=== PATIENT | male | born 1940 | race Caucasian/White ===

== ENCOUNTER 2016-12-19 20:25 | Emergency (ER) | payer MEDICARE, OTHER ==
[2016-12-19 20:41] VITALS: BP 120/74
[2016-12-19] MEDS ORDERED: Potassium Chloride 20 MEQ Tab.ER PO ONE (22:23)
--- NOTE | 2016-12-19 22:23 | EDM.PDOC ---
ED HPI GENERAL MEDICAL PROBLEM - General Chief Complaint: Respiratory Problem Stated Complaint: LUNG PAIN SOB Time Seen by Provider: 12/19/16 20:53 Source of Information: Reports: Patient, RN Notes Reviewed History Limitations: Reports: No Limitations - History of Present Illness INITIAL COMMENTS - FREE TEXT/NARRATIVE: The patient states that he has had a dry cough for the past 2 nights. His symptoms are worse if he is supine. No wheezing. He states that he has had a hoarse voice, and his says that he has bags under his eyes. He reports generalized weakness. No recent fever. No recent nausea, vomiting, constipation, diarrhea, urinary symptoms, chest pain , or palpitations. No recent lower extremity edema. Prior similar symptoms. The patient's PCP is Nay Lyles, whom he has not seen for this problem. Anterior Chest Pain Score (Numeric/FACES): 2 - Related Data Allergies Allergy/AdvReac Type Severity Reaction Status Date / Time atorvastatin calcium Allergy Unknown Cough Verified 12/19/16 20:42 [From Lipitor] acetaminophen Allergy Cannot Verified 12/19/16 20:42 [From Lorcet 10/650] Remember adhesive Allergy Rash Verified 12/19/16 20:42 hydrocodone bitartrate Allergy Cannot Verified 12/19/16 20:42 [From Lorcet 10/650] Remember lisinopril Allergy Cannot Verified 12/19/16 20:42 Remember simvastatin [From Zocor] Allergy Cannot Verified 12/19/16 20:42 Remember Home Meds: Home Meds Ipratropium [Atrovent] 0.5 mg NEB Q4HRRT #30 neb 12/20/16 [Rx] Past Medical History HEENT History: Reports: Impaired Vision Cardiovascular History: Reports: CAD, High Cholesterol, Hypertension Respiratory History: Reports: COPD, Sleep Apnea (nightly CPAP) Gastrointestinal History: Reports: GERD Genitourinary History: Reports: BPH Musculoskeletal History: Reports: Other (See Below) (Spinal stenosis) Endocrine/Metabolic History: Reports: Diabetes, Type II Oncologic (Cancer) History: Reports: Bladder - Past Surgical History HEENT Surgical History: Reports: Cataract Surgery, Tonsillectomy Cardiovascular Surgical History: Reports: Coronary Artery Bypass (x 5 vessel, 2008) Other Male Surgeries/Procedures: BPH Neurological Surgical History: Reports: Lumbar Spine (Lumbar discectomy. Lumbar laminectomy.) Musculoskeletal Surgical History: Reports: Knee Replacement (right) Social & Family History - Family History Family Medical History: Noncontributory - Tobacco Use Smoking Status *Q: Former Smoker Years of Tobacco use: 45 Packs/Tins Daily: 1.5 Month Tobacco Last Used: Quit 1996 - Caffeine Use Caffeine Use: Reports: Coffee - Alcohol Use Alcohol Use History: Yes Days Per Week of Alcohol Use: 1 Number of Drinks Per Day: 1 Total Drinks Per Week: 1 Alcohol Use Frequency: Socially - Recreational Drug Use Recreational Drug Use: No - Living Situation & Occupation Living situation: Reports: , with Spouse Occupation: Retired ED ROS GENERAL - Review of Systems Review Of Systems: See Below Constitutional: Reports: No Symptoms HEENT: Reports: No Symptoms Respiratory: Reports: No Symptoms Cardiovascular: Reports: No Symptoms Endocrine: Reports: No Symptoms GI/Abdominal: Reports: No Symptoms : Reports: No Symptoms Musculoskeletal: Reports: No Symptoms Skin: Reports: No Symptoms Neurological: Reports: No Symptoms Psychiatric: Reports: No Symptoms Hematologic/Lymphatic: Reports: No Symptoms Immunologic: Reports: No Symptoms ED EXAM, GENERAL - Physical Exam Exam: See Below Exam Limited By: No Limitations General Appearance: Alert, WD/WN, No Apparent Distress Eye Exam: Bilateral Eye: EOMI, Normal Inspection Ears: Normal External Exam, Normal Canal, Hearing Grossly Normal, Normal TMs Nose: Normal Inspection, Normal Mucosa, No Blood Throat/Mouth: Normal Inspection, Normal Lips, Normal Teeth, Normal Gums, Normal Oropharynx, Normal Voice, No Airway Compromise Head: Atraumatic, Normocephalic Neck: Normal Inspection, Supple, Non-Tender, Full Range of Motion. No: Lymphadenopathy (L), Lymphadenopathy (R) Respiratory/Chest: No Respiratory Distress, Lungs Clear, Normal Breath Sounds, No Accessory Muscle Use Cardiovascular: Normal Peripheral Pulses, Regular Rate, Rhythm, No Gallop, No JVD, No Murmur, No Rub Peripheral Pulses: 4+: Radial (L), Radial (R) GI/Abdominal: Normal Bowel Sounds, Soft, Non-Tender, No Organomegaly, No Distention, No Abnormal Bruit, No Mass (Male) Exam: Deferred Rectal (Males) Exam: Deferred Back Exam: Normal Inspection, Full Range of Motion, NT Extremities: Normal Inspection, Normal Range of Motion, No Pedal Edema, Normal Capillary Refill Neurological: Alert, Oriented, Normal Cognition, No Motor/Sensory Deficits Psychiatric: Normal Affect Skin Exam: Warm, Dry, Intact, Normal Color, No Rash Lymphatic: No Adenopathy EKG INTERPRETATION EKG Date: 12/19/16 Time: 21:22 Rhythm: NSR Rate (Beats/Min): 81 [place]: Normal P-Wave: Present (1st degree AVB) QRS: Normal ST-T: Normal QT: Normal Comparison: NA - No Prior EKG Course - Vital Signs Last Recorded V/S: Last Vital Signs Temp 37.2 C 12/19/16 20:32 Pulse 78 12/20/16 01:48 Resp 18 12/20/16 01:48 BP 120/74 12/19/16 20:32 Pulse Ox 100 12/20/16 01:48 - Orders/Labs/Meds Orders: Active Orders 24 hr Category Date Time Status EKG Documentation Completion [RC] STAT Care 12/19/16 21:11 Active Ang Chest [CT] Stat Exams 12/19/16 22:21 Taken Chest 2V [CR] Stat Exams 12/19/16 21:11 Taken Labs: Laboratory Tests 12/19/16 12/19/16 12/19/16 Range/Units 21:26 21:26 21:26 WBC 5.08 (4.23-9.07) K/mm3 RBC 4.69 (4.63-6.08) M/mm3 Hgb 15.0 (13.7-17.5) gm/L Hct 42.4 (40.1-51.0) % MCV 90.4 (79.0-92.2) fl MCH 32.0 (25.7-32.2) pg MCHC 35.4 (32.2-35.5) g/dl RDW Std Deviation 43.9 (35.1-43.9) fL Plt Count 147 L (163-337) K/mm3 MPV 10.2 (9.4-12.3) fl Neutrophils % (Manual) 48 (40-60) % Band Neutrophils % 0 (0-10) % Lymphocytes % (Manual) 37 (20-40) % Atypical Lymphs % 0 % Monocytes % (Manual) 10 (2-10) % Eosinophils % (Manual) 4 (0.8-7.0) % Basophils % (Manual) 1 (0.2-1.2) Platelet Estimate Adequate RBC Morph Comment Not Reportable PT 10.6 (8.0-13.0) SECONDS INR 0.97 APTT 28 (22-36) SECONDS D-Dimer, Quantitative 0.76 H (0.19-0.59) mg/L Puncture Site ABG pH (7.35-7.45) ABG pCO2 (35.0-45.0) mmHg ABG pO2 (80.0-100.0) mmHg ABG HCO3 (22.0-26.0) meq/L ABG O2 Saturation (96.0-97.0) % ABG Base Excess (-2-2.0) A-a Gradient mmHg FiO2 (21.00-100.00) % Sodium 137 (136-145) mEq/L Potassium 3.1 L (3.5-5.1) mEq/L Chloride 99 (98-107) mEq/L Carbon Dioxide 27 (21-32) mEq/L Anion Gap 14.1 (5-15) BUN 18 (7-18) mg/dL Creatinine 1.1 (0.7-1.3) mg/dL Est Cr Clr Drug Dosing 52.58 mL/min Estimated GFR (MDRD) > 60 (>60) mL/min BUN/Creatinine Ratio 16.4 (14-18) Glucose 228 H (83-115) mg/dL Lactic Acid (0.4-2.0) mmol/L Calcium 8.6 (8.5-10.1) mg/dL Total Bilirubin 0.4 (0.2-1.0) mg/dL AST 31 (15-37) U/L ALT 50 (16-63) U/L Alkaline Phosphatase 71 (46-116) U/L Troponin I < 0.017 (0.00-0.056) ng/mL B-Natriuretic Peptide (0-100) pg/mL Total Protein 7.6 (6.4-8.2) g/dl Albumin 3.3 L (3.4-5.0) g/dl Globulin 4.3 gm/dL Albumin/Globulin Ratio 0.8 L (1-2) 12/19/16 12/19/16 12/19/16 Range/Units 21:26 21:26 21:30 WBC (4.23-9.07) K/mm3 RBC (4.63-6.08) M/mm3 Hgb (13.7-17.5) gm/L Hct (40.1-51.0) % MCV (79.0-92.2) fl MCH (25.7-32.2) pg MCHC (32.2-35.5) g/dl RDW Std Deviation (35.1-43.9) fL Plt Count (163-337) K/mm3 MPV (9.4-12.3) fl Neutrophils % (Manual) (40-60) % Band Neutrophils % (0-10) % Lymphocytes % (Manual) (20-40) % Atypical Lymphs % % Monocytes % (Manual) (2-10) % Eosinophils % (Manual) (0.8-7.0) % Basophils % (Manual) (0.2-1.2) Platelet Estimate RBC Morph Comment PT (8.0-13.0) SECONDS INR APTT (22-36) SECONDS D-Dimer, Quantitative (0.19-0.59) mg/L Puncture Site Rt radial ABG pH 7.46 H (7.35-7.45) ABG pCO2 36.7 (35.0-45.0) mmHg ABG pO2 57.0 L (80.0-100.0) mmHg ABG HCO3 25.8 (22.0-26.0) meq/L ABG O2 Saturation 89.1 L (96.0-97.0) % ABG Base Excess 2.6 H (-2-2.0) A-a Gradient 31 mmHg FiO2 21.00 (21.00-100.00) % Sodium (136-145) mEq/L Potassium (3.5-5.1) mEq/L Chloride (98-107) mEq/L Carbon Dioxide (21-32) mEq/L Anion Gap (5-15) BUN (7-18) mg/dL Creatinine (0.7-1.3) mg/dL Est Cr Clr Drug Dosing mL/min Estimated GFR (MDRD) (>60) mL/min BUN/Creatinine Ratio (14-18) Glucose (83-115) mg/dL Lactic Acid 1.6 (0.4-2.0) mmol/L Calcium (8.5-10.1) mg/dL Total Bilirubin (0.2-1.0) mg/dL AST (15-37) U/L ALT (16-63) U/L Alkaline Phosphatase (46-116) U/L Troponin I (0.00-0.056) ng/mL B-Natriuretic Peptide 60 (0-100) pg/mL Total Protein (6.4-8.2) g/dl Albumin (3.4-5.0) g/dl Globulin gm/dL Albumin/Globulin Ratio (1-2) Meds: Medications Discontinued Medications Generic Name Dose Route Start Last Admin Trade Name Freq PRN Reason Stop Dose Admin Sodium Chloride 1,000 mls @ 150 mls/hr 12/19/16 22:30 12/19/16 22:42 Normal Saline IV 150 mls/hr ASDIRECTED TANIA Administration Iopamidol 100 ml 12/19/16 23:06 12/19/16 23:27 Isovue-370 (76%) IVPUSH 12/19/16 23:07 100 ml ONETIME ONE Administration Potassium Chloride 40 meq 12/19/16 22:23 12/19/16 22:32 Klor-Con M20 PO 12/19/16 22:24 40 meq ONETIME ONE Administration Sodium Chloride 10 ml 12/19/16 23:06 12/19/16 23:27 Saline Flush FLUSH 10 ml ONETIME PRN Administration Keep Vein Open - Radiology Interpretation Free Text/Narrative:: Two-view chest radiograph appears to be unremarkable. Cardiac silhouette is within normal limits. No pulmonary vascular congestion. No pleural effusions. No focal infiltrate. No pneumothorax. Sternotomy wires, cardiac clips, and valve repair ring noted. Formal read per the Radiologist pending. CT angiogram of the chest is read by [facility] as: No sign of acute pulmonary thromboembolic disease. There are presumed to be postoperative changes related to cardiac bypass. Signs of bronchitis/bronchiolitis left lower lobe. - Re-Assessments/Exams Free Text/Narrative Re-Assessment/Exam: 12/19/16 22:22 The patient's D-dimer is elevated at 0.76. While I believe the likelihood of PE to be low, I have ordered a CT and REM of the chest to rule out out. Additionally, the patient's potassium returned depressed at 3.1. I have ordered 40 mEq potassium chloride orally. 12/20/16 00:50 Test results discussed with the patient. Yaya's workup is remarkable for potassium depressed at 3.1, which was treated with 40 mEq oral potassium, and an elevated blood glucose of 228, although the patient is diabetic. The patient's d-dimer was modestly elevated at 0.76, however, a CT angiogram is negative for PE. The CT angiogram showed what is clinically suspected: bronchitis. Current guidelines recommend the only treatment for acute bronchitis is Atrovent and ibuprofen. Departure - Departure Time of Disposition: 00:51 Disposition: Home, Self-Care 01 Condition: Good Clinical Impression: Acute bronchitis - Discharge Information Prescriptions: Ipratropium [Atrovent] 0.5 mg NEB Q4HRRT #30 neb Instructions: Acute Bronchitis, [id number] Referrals: Shelbie Lyles MD [Primary Care Provider] - Forms: ED Department Discharge Additional Instructions: You were seen in the emergency room for 2 days of a cough. Workup in the ER included blood work, an ECG, and a chest x-ray. Your workup found that your potassium was low at 3.1. You were given oral potassium in the ER. Your blood sugar was found to be elevated at 228. A blood test suggested the possibility of a blood clot in your lungs, however, you underwent a CAT scan of your chest which showed that you do not have a blood clot in your lungs. It did show, however, that you have bronchitis. Bronchitis is a viral infection of the tubes that lead into your lung tissue. Unfortunately, there is no treatment to get rid of the virus - it will have to run its course, which is typically about 3 weeks. The only medicines that have been shown to help with the symptoms of acute bronchitis are Atrovent and ibuprofen. Give yourself 1 Atrovent neb up to every 4 hours, as needed for cough. Take [id number] ibuprofen 2-3 tablets (400-600 mg) every 8 hours, with food, as needed for cough. If any other problems, please do not hesitate to return to the ER. - My Orders Last 24 Hours: My Active Orders 12/19/16 21:11 EKG Documentation Completion [RC] STAT Chest 2V [CR] Stat 12/19/16 22:21 Ang Chest [CT] Stat - Assessment/Plan Last 24 Hours: My Active Orders 12/19/16 21:11 EKG Documentation Completion [RC] STAT Chest 2V [CR] Stat 12/19/16 22:21 Ang Chest [CT] Stat
[2016-12-19] MEDS ORDERED: Sodium Chloride 0.9% 1,000 ML IV SCH (22:30)
[2016-12-19] MEDS ORDERED: Iopamidol 755 Mg/ML 100 ML Bottle IVPUSH ONE (23:06)
[2016-12-19] MEDS ORDERED: Sodium Chloride 0.9% 10 ML Syringe FLUSH PRN (23:06)
--- NOTE | 2016-12-20 10:11 | CR ---
Chest: Two views of the chest are obtained. Comparison: Previous chest x-ray of 02/02/11. Heart size appears normal. Tortuous thoracic aorta is seen. Lungs are clear with no acute infiltrates. Previous sternotomy is noted for CABG. Bony structures show scattered disc space narrowing within the thoracic spine. Mild compression deformities are scattered within the spine which appear old. Prior prosthetic heart valve is seen. Impression: 1. Nothing acute is seen. Incidental findings as described above. Diagnostic code #2
--- NOTE | 2016-12-20 10:11 | CT ---
CT chest Technique: Multiple axial sections through the chest were obtained. Intravenous contrast was utilized. Study has been performed as a pulmonary angiogram protocol. Comparison: Previous chest CT of 01/02/10. Findings: Pulmonary arteries are well-opacified. No filling defects are seen to indicate pulmonary embolism. Atherosclerotic calcification is noted within the thoracic aorta. Diffuse coronary artery calcification is seen with prior CABG. Small normal-appearing mediastinal lymph nodes are seen. No axillary adenopathy is seen. Visualized portions of the upper abdominal structures appear within normal limits for age. Slight nodularity is seen in a subpleural location within the left lung base most likely chronic. Emphysematous changes are seen. Mild interstitial change within both lung bases most likely representing slight fibrosis. Impression: 1. No findings of pulmonary embolism. 2. Emphysematous change. Other incidental findings. Diagnostic code #2 I agree with preliminary report issued by [facility] ([facility] preliminary report dictated on 12/20/16, 12:44 AM Central Time)
== END 2016-12-20 01:10 | disposition home or self-care (01) ==
LOC: JD.ED 20:25
DX: J20.9 Acute bronchitis, unspecified (principal); I25.10 Atherosclerotic heart disease of native coronary artery without angina pectoris; E78.00 Pure hypercholesterolemia, unspecified; I10 Essential (primary) hypertension; E11.9 Type 2 diabetes mellitus without complications; K21.9 Gastro-esophageal reflux disease without esophagitis; Z98.49 Cataract extraction status, unspecified eye; Z88.6 Allergy status to analgesic agent; Z88.5 Allergy status to narcotic agent; Z98.890 Other specified postprocedural states; Z95.1 Presence of aortocoronary bypass graft; Z96.659 Presence of unspecified artificial knee joint; Z87.891 Personal history of nicotine dependence
CPT/HCPCS: 36415; 36600; 71020; 71275; 80053; 82803; 83605; 83880; 84484; 85025; 85379; 85610; 85730; 93005; 96360; 96361; 99284; A9270; J7040; J7050; Q9967

== ENCOUNTER 2018-12-03 12:32 | Emergency (ER) | payer MEDICARE, OTHER ==
[2018-12-03 12:47] VITALS: BP 108/73
[2018-12-03] MEDS ORDERED: Lidocaine 2% Jelly 10 ML Urojet MUCMEM ONE (13:36)
--- NOTE | 2018-12-03 13:37 | EDM.PDOC ---
ED HPI GENERAL MEDICAL PROBLEM - General Chief Complaint: Gastrointestinal Problem Stated Complaint: RECTOM SWOLLEN SHUT Time Seen by Provider: 12/03/18 13:36 Source of Information: Reports: Patient History Limitations: Reports: No Limitations - History of Present Illness INITIAL COMMENTS - FREE TEXT/NARRATIVE: 78-year-old male presents to the ED with severe constipation. He states his rectum is swollen and he cannot have a bowel movement. States he has used Fleet enemas and oral laxatives over the last several days with no results. Normally his bowels work up to 6 times daily and he appears to be somewhat obsessed with his bowel function. He states occasionally he will note some blood with wiping of the perianal area. States his last good bowel movement was about a week ago. Small amounts of stool have been obtained with Fleet enemas. He has some mild diffuse lower quadrant abdominal cramping pain but he is able to eat normally up until today. Denies any vomiting. Feels constant pressure in the rectal vault like he needs to defecate but is unable to do so. Onset: Gradual Onset Date: 11/26/18 Duration: Day(s):, Constant, Getting Worse Location: Reports: Abdomen (Rectal pressure and inability to have a bowel movement.), Other Quality: Reports: Ache ( He is lower abdominal cramping pain intermittently), Pressure Severity: Moderate Improves with: Reports: None (Rectum) Worsens with: Reports: None Context: Reports: Other (Suffering from constipation and unable to have a bowel movement. States he's too weak to push out the hard stool.). Denies: Activity, Exercise, Lifting, Sick Contact, Trauma Associated Symptoms: Reports: Loss of Appetite, Malaise, Shortness of Breath ( On exertion). Denies: No Other Symptoms, Confusion, Chest Pain, Cough, cough w sputum, Diaphoresis, Fever/Chills, Headaches, Nausea/Vomiting, Rash, Seizure Treatments CUSTOMER EXPERT: Reports: Other (see below) Other Treatments CUSTOMER EXPERT: fleets enema Rectal Pain Score (Numeric/FACES): 1 - Related Data Allergies Allergy/AdvReac Type Severity Reaction Status Date / Time atorvastatin calcium Allergy Unknown Cough Verified 12/19/16 20:42 [From Lipitor] acetaminophen Allergy Cannot Verified 12/19/16 20:42 [From Lorcet ] Remember adhesive Allergy Rash Verified 12/19/16 20:42 hydrocodone bitartrate Allergy Cannot Verified 12/19/16 20:42 [From Lorcet 10] Remember lisinopril Allergy Cannot Verified 12/19/16 20:42 Remember simvastatin [From Zocor] Allergy Cannot Verified 12/19/16 20:42 Remember Home Meds: Home Meds Ipratropium [Atrovent] 0.5 mg NEB Q4HRRT #30 neb 12/20/16 [Rx] Past Medical History HEENT History: Reports: Impaired Vision Cardiovascular History: Reports: CAD, High Cholesterol, Hypertension Other Cardiovascular History: 5 vessel bypass 2007 Respiratory History: Reports: COPD, Sleep Apnea (nightly CPAP) Other Respiratory History: sleep apnea wears cpap at hs Gastrointestinal History: Reports: GERD Genitourinary History: Reports: BPH Musculoskeletal History: Reports: Other (See Below) (Spinal stenosis) Neurological History: Reports: CVA Psychiatric History: Reports: None Endocrine/Metabolic History: Reports: Diabetes, Type II Hematologic History: Reports: Blood Transfusion(s) Oncologic (Cancer) History: Reports: Bladder Other Oncologic History: bladder cancer Dermatologic History: Reports: None - Infectious Disease History Infectious Disease History: Reports: None - Past Surgical History HEENT Surgical History: Reports: Cataract Surgery, Tonsillectomy Cardiovascular Surgical History: Reports: Coronary Artery Bypass (x 5 vessel, 2007) Other Male Surgeries/Procedures: BPH Neurological Surgical History: Reports: Lumbar Spine (Lumbar discectomy. Lumbar laminectomy.) Musculoskeletal Surgical History: Reports: Knee Replacement (right) Social & Family History - Family History Family Medical History: Noncontributory - Caffeine Use Caffeine Use: Reports: Coffee - Living Situation & Occupation Living situation: Reports: , with Spouse Occupation: Retired ED ROS GENERAL - Review of Systems Review Of Systems: See Below Constitutional: Reports: Malaise, Weakness, Fatigue, Decreased Appetite. Denies : Fever, Chills HEENT: Reports: Glasses, Hearing Loss Respiratory: Reports: Shortness of Breath. Denies: Wheezing, Pleuritic Chest Pain, Cough, Sputum Cardiovascular: Reports: Chest Pain, Blood Pressure Problem, Dyspnea on Exertion (History of unstable angina on exertion chronically). Denies: Claudication (Often runs too low due to medications he is on.), Lightheadedness , Orthopnea Endocrine: Reports: Fatigue GI/Abdominal: Reports: Abdominal Pain (Intermittent lower abdominal pressure and cramping.), Other : Reports: Frequency (Rectal pressure discomfort and strong feeling of need to defecate but unable to do so.), Other (Nocturia 3. Known BPH.) Musculoskeletal: Reports: Neck Pain, Back Pain (Knees hips low back and neck.), Joint Pain Skin: Reports: No Symptoms Neurological: Reports: No Symptoms Psychiatric: Reports: No Symptoms ED EXAM, GI/ABD - Physical Exam Exam: See Below Exam Limited By: No Limitations General Appearance: Alert, WD/WN, Anxious, Moderate Distress, Other (Vital signs show him to be afebrile. Pulse 64 and sinus respiratory rate of 18 sats 95 % on room air. BP 108 on 73.) Eyes: Bilateral: Normal Appearance (No scleral icterus) Throat/Mouth: Normal Inspection, Normal Lips, Normal Oropharynx Head: Atraumatic, Normocephalic Neck: Limited Range of Motion, Tender Lateral Respiratory/Chest: No Respiratory Distress, Normal Breath Sounds, Decreased Breath Sounds. No: Respiratory Distress, Rales, Rhonchi (Decreased breath sounds to both lower lung myers but no adventitial sounds noted.), Wheezing Cardiovascular: Regular Rate, Rhythm, No Edema, No Gallop, No Murmur, No Rub. No: Normal Peripheral Pulses GI/Abdominal Exam: Soft, Non-Tender (Follow sounds are slightly hyperactive in all 4 quadrants.), No Organomegaly, No Abnormal Bruit, No Mass, Pelvis Stable, Abnormal Bowel Sounds. No: Guarding, Rigid, Rebound (Male) Exam: No Hernia Rectal (Males) Exam: Other (The rectum shows no active bleeding. He has evidence of a few external hemorrhoidal tags. There is no anal fissure. There is firm stool in the rectal vault. No blood noted) Back Exam: Other Extremities: Normal Inspection (Mild kyphosis thoracic spine), Other (Evidence of posterior 30 changes both days both hips with loss of internal/external rotation bilaterally.) Neurological: Alert, Oriented, CN II-XII Intact, Normal Cognition Psychiatric: Normal Affect, Anxious Skin Exam: Warm, Dry, Intact, Normal Color, No Rash Course - Vital Signs Last Recorded V/S: Last Vital Signs Temp 36.9 C 12/03/18 12:41 Pulse 64 12/03/18 12:41 Resp 18 12/03/18 12:41 BP 108/73 12/03/18 12:41 Pulse Ox 95 12/03/18 12:41 - Orders/Labs/Meds Orders: Active Orders 24 hr Category Date Time Status Enema [RC] ASDIRECTED Care 12/03/18 14:01 Active Meds: Medications Discontinued Medications Generic Name Dose Route Start Last Admin Trade Name Sinan PRN Reason Stop Dose Admin Lactulose 20 gm 12/03/18 15:49 12/03/18 16:02 Cephulac PO 12/03/18 15:50 20 gm ONETIME ONE Administration Lidocaine HCl 10 ml 12/03/18 13:36 12/03/18 13:47 Xylocaine 2% Jelly MUCMEM 12/03/18 13:37 10 ml ONETIME ONE Administration Magnesium Citrate 240 ml 12/03/18 15:48 12/03/18 16:02 Citrate Of Magnesia PO 12/03/18 15:49 240 ml ONETIME ONE Administration Magnesium Citrate Confirm 12/03/18 18:07 Citrate Of Magnesia Administered 12/03/18 18:08 Dose 296 ml .ROUTE .[facility] ONE - Radiology Interpretation Free Text/Narrative:: 78-year-old male attends the ED with rectal pressure discomfort for the last several days. He states she's not had a normal bowel movement for about a week in spite of taking numerous oral laxatives and 2 Fleet enemas yesterday. He states he feels like his rectum is closed shut. I found no abnormalities on examination of the rectum and a benign abdomen on exam. Vital signs are normal as well. Plan KUB will be done and then will decide on a treatment plan depending on the degree of constipation - Re-Assessments/Exams Free Text/Narrative Re-Assessment/Exam: 12/03/18 14:00: KUB reveals some stool in the cecum. The remainder of the descending colon and splenic flexure and transverse colon are fairly empty. There is a mild amount of stool in the descending colon and there is stool in the rectal vault. There are no signs of bowel obstruction. There is significant scoliosis and degenerative changes throughout the lower thoracic and lumbar spine. Diffuse vascular calcification is also noted in the distribution of the internal iliac and aorta. There is calcification overlying the right kidney most likely due to a nonobstructing renal stone. He has had prior.. Prior sternotomy noted for prosthetic heart valve. Therefore not a great deal of stool is identified. Plan we will try a soapsuds enema to see if we can get the plug in the rectal vault softened. 12/03/18 14:45: Nurse has tried twice to administer a soapsuds enema but the patient cannot retain any of the fluid. She states the soapsuds enema returns almost immediately. Therefore we will give him lactulose 20 g by mouth with 8 ounces of magnesium citrate. 12/03/18 18:00 patient reports that he still has not had any bowel movement with the above medication. They wish to get back [place] before dark. At this time I'm not going to administer anything further orally. I will send him home with a bottle of Citroma today 10 ounces tomorrow morning if he does not have bowel movement tonight overnight. Also with lactulose 20 g by mouth again tomorrow. If no bowel movements occur bypass 1600 hrs. she is to return to the ED. Departure - Departure Time of Disposition: 18:05 Disposition: Home, Self-Care 01 Condition: Fair Clinical Impression: Constipation by delayed colonic transit, Pain in rectum - Discharge Information Instructions: Constipation, Adult, [id number] Referrals: PCP,Unobtain [Primary Care Provider] - Forms: ED Department Discharge Additional Instructions: Evaluation the emergent today in regards to severe, problems with constipation and rectal pressure discomfort from stool bolus in the rectal vault. The other shows moderate amount of stool in the cecum which is on the lower right side of your abdomen. The rest of the colon is fairly free of stool until you get down to the rectal vault. Unable to retain soapsuds enema fluid it just ran out due to poor sphincter tone. Therefore given medications by mouth including lactulose 20 g and 8 ounces of magnesium citrate. This has not yet worked but is likely to work within the next 3-4 hours and your bowels will move 3 or 4 times. No rectal pain was treated with topical lidocaine from a [employer] and one will be sent home with you at that you could use to relieve rectal pain pressure discomfort. Do not move tonight then repeat magnesium citrate 10 ounces mixed with 6 ounces of juice of choice tomorrow morning with lactulose 20 g by mouth once again. If this fails to provide a bowel movement by 1600 hrs. tomorrow you are to return to the ED. - My Orders Last 24 Hours: My Active Orders 12/03/18 14:01 Enema [RC] ASDIRECTED - Assessment/Plan Last 24 Hours: My Active Orders 12/03/18 14:01 Enema [RC] ASDIRECTED
[2018-12-03] MEDS ORDERED: Magnesium Citrate Solution 296 ML Bottle PO ONE (15:48)
[2018-12-03] MEDS ORDERED: Lactulose Soln 10 GM/15 ML 30 ML UD Cup PO ONE (15:49)
[2018-12-03] MEDS ORDERED: Magnesium Citrate Solution 296 ML Bottle ONE (18:07)
--- NOTE | 2018-12-03 19:34 | CR ---
Abdomen: Supine view of the abdomen was obtained. Comparison: No prior abdominal x-ray. Bowel gas pattern appears within normal limits. Scoliosis and degenerative change are noted within the spine. Vascular calcification is noted. Calcification is seen overlying the right kidney most likely due to nonobstructing renal stone. Minimal vascular calcification is present within the pelvis. Prior sternotomy is noted for prosthetic heart valve. The amount of stool within the colon is within normal limits. Impression: 1. Multiple findings as noted above. Nothing acute is appreciated. Diagnostic code #2
== END 2018-12-03 18:17 | disposition home or self-care (01) ==
LOC: JD.ED 12:32
DX: K59.01 Slow transit constipation (principal); K62.89 Other specified diseases of anus and rectum; I10 Essential (primary) hypertension; E78.00 Pure hypercholesterolemia, unspecified; E11.9 Type 2 diabetes mellitus without complications; Z88.8 Allergy status to other drugs, medicaments and biological substances; Z88.6 Allergy status to analgesic agent
CPT/HCPCS: 74018; 99283; A9270; 99284

== ENCOUNTER 2020-04-29 04:10 | Emergency (ER) | payer MEDICARE, OTHER ==
[2020-04-29] MEDS ORDERED: Sodium Chloride 0.9% 1,000 ML IV ONE ×2 (04:47→06:48)
--- NOTE | 2020-04-29 04:52 | EDM.PDOC ---
ED HPI GENERAL MEDICAL PROBLEM - General Chief Complaint: Genitourinary Problem Stated Complaint: UNABLE TO PASS URINE THRU CATH Time Seen by Provider: 04/29/20 04:20 Source of Information: Reports: Patient History Limitations: Reports: Other (Somewhat forgetful - not the best historian) - History of Present Illness INITIAL COMMENTS - FREE TEXT/NARRATIVE: Mr. Hester is a very pleasant 79-year-old gentleman with a past medical history significant for BPH, who is now brought to the ED by his over concern of a possibly clogged Cuevas catheter. The patient states that he underwent posterior cervical fusion about 2 or 3 weeks ago, and that a Cuevas catheter was placed at that time, which he still has. It has been working fine, but the patient's noticed decreased urine output tonight. The patient denies having any pain. Here in the ED, the patient's initial BP is found to be depressed at 97/43, otherwise, he is hemodynamically stable, afebrile, saturating 95% on room air. His BP while I was evaluating him was down to 82/54. When asked if he has been drinking fluids, he responded that he drinks whatever his gives him. Other than the urine output issue, the patient denies having a recent fever, chills, sore throat, ear pain, nasal or sinus congestion, cough, dyspnea, chest pain, palpitations, nausea, vomiting, constipation, diarrhea, abdominal pain, urinary symptoms, recent weight gain or weight loss, recent bloody bowel movements or black bowel movements, recent joint aches, headaches, or rashes. The patient's PCP is Dr. Mandeep Lo. He does not recall the name of his Spinal Surgeon at [facility]. 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 He does not recall the name of his Urologist. - Related Data Allergies Allergy/AdvReac Type Severity Reaction Status Date / Time atorvastatin calcium Allergy Unknown Cough Verified 04/29/20 04:23 [From Lipitor] acetaminophen Allergy Cannot Verified 04/29/20 04:23 [From Lorcet ] Remember adhesive Allergy Rash Verified 04/29/20 04:23 hydrocodone bitartrate Allergy Cannot Verified 04/29/20 04:23 [From Lorcet ] Remember lisinopril Allergy Cannot Verified 04/29/20 04:23 Remember simvastatin [From Zocor] Allergy Cannot Verified 04/29/20 04:23 Remember Home Meds: Home Meds Ipratropium [Atrovent] 0.5 mg NEB Q4HRRT #30 neb 12/20/16 [Rx] Past Medical History HEENT History: Reports: Macular Degeneration Cardiovascular History: Reports: CAD, High Cholesterol, Hypertension Respiratory History: Reports: COPD, Sleep Apnea (nightly BiPAP) Gastrointestinal History: Reports: GERD Genitourinary History: Reports: BPH, Retention, Urinary Musculoskeletal History: Reports: Other (See Below) (Spinal stenosis) Neurological History: Reports: CVA Endocrine/Metabolic History: Reports: Diabetes, Type II Hematologic History: Reports: Blood Transfusion(s) Oncologic (Cancer) History: Reports: Bladder (s/p tumor excision) - Past Surgical History HEENT Surgical History: Reports: Cataract Surgery (bilateral), Tonsillectomy Cardiovascular Surgical History: Reports: Coronary Artery Bypass (x 5 vessel, 2007), Valve Replacement (tissue aortic, 2007) Male Surgical History: Reports: TURBT-Transurethral Resection of Bladder Tumor Neurological Surgical History: Reports: C-Spine (fusion, Mar 2020), Lumbar Spine (laminectomy + discectomy) Musculoskeletal Surgical History: Reports: Knee Replacement (right), Shoulder Replacement (right) Social & Family History - Family History Family Medical History: Noncontributory - Tobacco Use Tobacco Use Status *Q: Former Tobacco User Years of Tobacco use: 45 Packs/Tins Daily: 1.5 Month/Year Tobacco Last Used: Quit 1996 - Caffeine Use Caffeine Use: Reports: Coffee - Alcohol Use Alcohol Use History: Yes Alcohol Use Frequency: Socially - Recreational Drug Use Recreational Drug Use: No - Living Situation & Occupation Living situation: Reports: , with Spouse Occupation: Retired ED ROS GENERAL - Review of Systems Review Of Systems: Comprehensive ROS is negative, except as noted in HPI. ED EXAM, GENERAL - Physical Exam Exam: See Below Exam Limited By: No Limitations General Appearance: Alert, WD/WN, No Apparent Distress Eye Exam: Bilateral Eye: EOMI, Normal Inspection Ears: Normal External Exam, Hearing Grossly Normal Nose: Normal Inspection Throat/Mouth: Normal Inspection, Normal Voice, No Airway Compromise Head: Atraumatic, Normocephalic Neck: Normal Inspection, Full Range of Motion Respiratory/Chest: No Respiratory Distress, Lungs Clear, Normal Breath Sounds, No Accessory Muscle Use Cardiovascular: Normal Peripheral Pulses, Regular Rate, Rhythm, No Edema, No Gallop, No JVD, No Murmur, No Rub Peripheral Pulses: 2+: Radial (L), Radial (R) GI/Abdominal: Normal Bowel Sounds, Soft, Non-Tender, No Organomegaly, No Distention, No Abnormal Bruit, No Mass Back Exam: Normal Inspection, Full Range of Motion, NT Extremities: Normal Inspection, Normal Range of Motion, No Pedal Edema, Normal Capillary Refill Neurological: Alert, Oriented, Normal Cognition, No Motor/Sensory Deficits Psychiatric: Normal Affect Skin Exam: Warm, Dry, Intact, Normal Color, No Rash Course - Vital Signs Last Recorded V/S: Last Vital Signs Temp 36.1 C 04/29/20 04:20 Pulse 64 04/29/20 06:45 Resp 16 04/29/20 06:45 BP 92/50 L 04/29/20 06:45 Pulse Ox 95 04/29/20 06:45 - Orders/Labs/Meds Orders: Active Orders 24 hr Category Date Time Status Bladder Scan [RC] ASDIRECTED Care 04/29/20 04:47 Active CULTURE URINE [RM] Stat Lab 04/29/20 05:10 Received Labs: Laboratory Tests 04/29/20 04/29/20 Range/Units 05:05 05:05 WBC 8.60 (4.23-9.07) K/mm3 RBC 3.92 L (4.63-6.08) M/mm3 Hgb 12.1 L D (13.7-17.5) gm/dl Hct 37.2 L (40.1-51.0) % MCV 94.9 H D (79.0-92.2) fl MCH 30.9 (25.7-32.2) pg MCHC 32.5 (32.2-35.5) g/dl RDW Std Deviation 48.5 H (35.1-43.9) fL Plt Count 182 (163-337) K/mm3 MPV 9.7 (9.4-12.3) fl Neutrophils % (Manual) 74 H (40-60) % Band Neutrophils % 0 (0-10) % Lymphocytes % (Manual) 13 L (20-40) % Atypical Lymphs % 0 % Monocytes % (Manual) 7 (2-10) % Eosinophils % (Manual) 5 (0.8-7.0) % Basophils % (Manual) 1 (0.2-1.2) Platelet Estimate Adequate RBC Morph Comment Normal Sodium 136 (136-145) mEq/L Potassium 3.5 (3.5-5.1) mEq/L Chloride 101 (98-107) mEq/L Carbon Dioxide 25 (21-32) mEq/L Anion Gap 13.5 (5-15) BUN 34 H (7-18) mg/dL Creatinine 1.1 (0.7-1.3) mg/dL Est Cr Clr Drug Dosing 50.08 mL/min Estimated GFR (MDRD) > 60 (>60) mL/min BUN/Creatinine Ratio 30.9 H (14-18) Glucose 132 H (83-115) mg/dL Calcium 8.7 (8.5-10.1) mg/dL Magnesium 2.0 (1.8-2.4) mg/dl Total Bilirubin 0.5 (0.2-1.0) mg/dL AST 14 L (15-37) U/L ALT 28 (16-63) U/L Alkaline Phosphatase 53 (46-116) U/L Total Protein 6.1 L (6.4-8.2) g/dl Albumin 2.6 L (3.4-5.0) g/dl Globulin 3.5 gm/dL Albumin/Globulin Ratio 0.7 L (1-2) Meds: Medications Discontinued Medications Generic Name Dose Route Start Last Admin Trade Name Freq PRN Reason Stop Dose Admin Sodium Chloride 1,000 mls @ 999 mls/hr 04/29/20 04:47 04/29/20 05:04 Normal Saline IV 04/29/20 05:47 999 mls/hr ONETIME ONE Administration Sodium Chloride 1,000 mls @ 999 mls/hr 04/29/20 06:48 04/29/20 06:52 Normal Saline IV 04/29/20 07:48 999 mls/hr ONETIME ONE Administration - Re-Assessments/Exams Free Text/Narrative Re-Assessment/Exam: 04/29/20 04:48 As above, the patient has had a Cuevas catheter emergency underwent a cervical fusion 2 to 3 weeks ago. His noticed decreased urine output from the Cuevas tonight, and was concerned that the Cuevas may be clogged, however, the bladder scan here in the ED indicates no urine, and Theresa HURD was able to get only a very small amount of urine from the Cuevas which we have sent for culture. His BP was 97/43 upon arrival, and down to 82/54 while I was evaluating him. I think he is just really dry. I have ordered some blood work to evaluate, along with an IV fluid bolus, to see if we can get his blood pressure up and get him to start making urine again. 04/29/20 06:02 The patient's CBC is remarkable for a H/H mildly depressed at 12.1/37.2, with the remainder of his CBC being unremarkable. His CMP is remarkable for a BUN elevated at 34, with a Cr normal at 1.1, and a blood glucose modestly elevated at 132, with the remainder of his CMP being unremarkable. His magnesium level is within normal limits at 2.0. 04/29/20 06:49 Following 1 L of IV fluid, the patient's BP is now 92/50. That's improved, but he is likely still dry, therefore I ordered a second liter of IV fluid. 04/29/20 07:30 The patient's condition is significantly improving. His BP is up to 108/48, and he is making urine. There is still 500 mL remaining on his second liter of IV fluid. 04/29/20 07:59 The second liter of IV fluid has finished infusing. The patient is current BP is 100/53, and he is making urine. He feels much better. I will discharge him home with the recommendation that he stay adequately hydrated. Departure - Departure Time of Disposition: 08:00 Disposition: Home, Self-Care 01 Condition: Good Clinical Impression: Intravascular volume depletion - Discharge Information *PRESCRIPTION DRUG MONITORING PROGRAM REVIEWED*: Not Applicable *COPY OF PRESCRIPTION DRUG MONITORING REPORT IN PATIENT GREGG: Not Applicable Referrals: Mandeep Lo MD [Primary Care Provider] - Forms: ED Department Discharge Additional Instructions: You were seen in the emergency room after it was noticed that you did not have any urine output through your Cuevas catheter. On evaluation in the ER, no urine was in your bladder, which is why there was no urine coming out of your Cuevas catheter. Work-up in the ER included blood work, which returned consistent with your being intravascularly depleted. You were given 2 L of IV fluid in the ER, which resulted in your blood pressure increasing and you now making urine. Going forward, we recommend that you stay adequately hydrated. Gatorade or Powerade are best. If any other problems, please do not hesitate to return to the ER. Sepsis Event Note (ED) - Evaluation Sepsis Screening Result: No Definite Risk - Focused Exam Vital Signs: Vital Signs Temp Pulse Resp BP Pulse Ox 04/29/20 06:45 64 16 92/50 L 95 04/29/20 04:20 36.1 C 66 16 97/43 L 95 - My Orders Last 24 Hours: My Active Orders 04/29/20 04:47 Bladder Scan [RC] ASDIRECTED 04/29/20 05:10 CULTURE URINE [RM] Stat - Assessment/Plan Last 24 Hours: My Active Orders 04/29/20 04:47 Bladder Scan [RC] ASDIRECTED 04/29/20 05:10 CULTURE URINE [RM] Stat
[2020-04-29 08:43] VITALS: BP 100/60; PULSE 62
== END 2020-04-29 08:43 | disposition home or self-care (01) ==
LOC: JD.ED 04:10
DX: E86.9 Volume depletion, unspecified (principal); I10 Essential (primary) hypertension; J44.9 Chronic obstructive pulmonary disease, unspecified; E11.9 Type 2 diabetes mellitus without complications; I25.10 Atherosclerotic heart disease of native coronary artery without angina pectoris; Z88.8 Allergy status to other drugs, medicaments and biological substances; Z88.6 Allergy status to analgesic agent; Z91.048 Other nonmedicinal substance allergy status; Z88.5 Allergy status to narcotic agent; Z86.73 Personal history of transient ischemic attack (TIA), and cerebral infarction without residual deficits; Z87.891 Personal history of nicotine dependence
CPT/HCPCS: 36415; 80053; 83735; 85007; 85027; 87086; 87088; 87186; 99283; J7030

== ENCOUNTER 2020-04-30 19:36 | Emergency (ER) | payer MEDICARE, OTHER ==
[2020-04-30 19:56] VITALS: BP 129/90; PULSE 107
[2020-04-30] MEDS ORDERED: Lidocaine 2% Jelly 10 ML Urojet ONE (20:03)
[2020-04-30] MEDS ORDERED: Lidocaine 2% Jelly 10 ML Urojet MUCMEM ONE (20:14)
--- NOTE | 2020-04-30 20:18 | EDM.PDOC ---
ED HPI GENERAL MEDICAL PROBLEM - General Chief Complaint: Genitourinary Problem Stated Complaint: MAY NEED A CATH PUT BACK IN. Time Seen by Provider: 04/30/20 20:00 Source of Information: Reports: Patient, RN Notes Reviewed History Limitations: Reports: No Limitations - History of Present Illness INITIAL COMMENTS - FREE TEXT/NARRATIVE: Patient is an 79-year-old male presenting to the emergency department with complaints of not being able to void after having a Cuevas catheter removed in the clinic today. He states he has Cuevas catheter removed around 4 PM today and has not voided thus far. He had a cervical spinal fusion completed 2 to 3 weeks ago and the Cuevas catheter had been in place since that procedure. Unfortunately he did have a witnessed fall in the waiting room when he checked into the emergency department. It appears he got tangled in his walker and fell onto his right side. He did not hit his head. Denies any dizziness. He has some pain to his right upper arm but is able to move it without difficulty. Denies any additional pain to his neck or back. C-collar was intact at the time of the fall. He was able to ambulate without difficulty after the fall. Bladder Pain Score (Numeric/FACES): 8 - Related Data Allergies Allergy/AdvReac Type Severity Reaction Status Date / Time atorvastatin calcium Allergy Unknown Cough Verified 04/30/20 19:53 [From Lipitor] acetaminophen Allergy Cannot Verified 04/30/20 19:53 [From Lorcet ] Remember adhesive Allergy Rash Verified 04/30/20 19:53 hydrocodone bitartrate Allergy Cannot Verified 04/30/20 19:53 [From Lorcet ] Remember lisinopril Allergy Cannot Verified 04/30/20 19:53 Remember simvastatin [From Zocor] Allergy Cannot Verified 04/30/20 19:53 Remember Home Meds: Home Meds Ipratropium [Atrovent] 0.5 mg NEB Q4HRRT #30 neb 12/20/16 [Rx] Past Medical History HEENT History: Reports: Macular Degeneration Cardiovascular History: Reports: CAD, High Cholesterol, Hypertension Other Cardiovascular History: 5 vessel bypass 2007 Respiratory History: Reports: COPD, Sleep Apnea Other Respiratory History: sleep apnea wears cpap at hs Gastrointestinal History: Reports: GERD Genitourinary History: Reports: BPH, Retention, Urinary Musculoskeletal History: Reports: Other (See Below) Neurological History: Reports: CVA Psychiatric History: Reports: None Endocrine/Metabolic History: Reports: Diabetes, Type II Hematologic History: Reports: Blood Transfusion(s) Oncologic (Cancer) History: Reports: Bladder Other Oncologic History: bladder cancer Dermatologic History: Reports: None - Infectious Disease History Infectious Disease History: Reports: None - Past Surgical History HEENT Surgical History: Reports: Cataract Surgery, Tonsillectomy Cardiovascular Surgical History: Reports: Coronary Artery Bypass, Valve Replacement Male Surgical History: Reports: TURBT-Transurethral Resection of Bladder Tumor Neurological Surgical History: Reports: C-Spine, Lumbar Spine Musculoskeletal Surgical History: Reports: Knee Replacement, Shoulder Replacement Social & Family History - Family History Family Medical History: Noncontributory - Tobacco Use Tobacco Use Status *Q: Unknown Ever Used Tobacco - Caffeine Use Caffeine Use: Reports: Coffee - Living Situation & Occupation Living situation: Reports: , with Spouse Occupation: Retired ED ROS GENERAL - Review of Systems Review Of Systems: See Below Constitutional: Reports: Weakness. Denies: Fever, Chills HEENT: Reports: No Symptoms Respiratory: Reports: No Symptoms. Denies: Shortness of Breath, Cough Cardiovascular: Reports: No Symptoms Endocrine: Reports: No Symptoms GI/Abdominal: Reports: No Symptoms : Reports: Urinary Retention Musculoskeletal: Reports: Other (Right upper arm pain) Skin: Reports: No Symptoms Neurological: Reports: No Symptoms. Denies: Dizziness, Headache Psychiatric: Reports: No Symptoms Hematologic/Lymphatic: Reports: No Symptoms Immunologic: Reports: No Symptoms ED EXAM, RENAL/ - Physical Exam Exam: See Below Exam Limited By: No Limitations General Appearance: Alert, WD/WN, No Apparent Distress Neck: Other (C-collar intact. Denies pain.) Respiratory/Chest: No Respiratory Distress, Lungs Clear, Normal Breath Sounds, No Accessory Muscle Use, Chest Non-Tender Cardiovascular: Normal Peripheral Pulses, Regular Rate, Rhythm, No Edema, No Gallop, No JVD, No Murmur, No Rub GI/Abdominal: Normal Bowel Sounds, Soft, Non-Tender, No Organomegaly, No Distention, No Abnormal Bruit, No Mass Extremities: Other (Mild tenderness to palpation of the right upper arm. No obvious deformity or ecchymosis. Patient has full range of motion of the extr emity.) Neurological: Alert, Oriented, CN II-XII Intact, Normal Cognition, Normal Gait, Normal Reflexes, No Motor/Sensory Deficits Psychiatric: Normal Affect, Normal Mood Skin Exam: Warm, Dry, Intact, Normal Color, No Rash Course - Vital Signs Last Recorded V/S: Last Vital Signs Temp 98.0 F 04/30/20 19:54 Pulse 107 H 04/30/20 19:54 Resp 16 04/30/20 19:54 BP 129/90 04/30/20 19:54 Pulse Ox 95 04/30/20 19:54 - Orders/Labs/Meds Orders: Active Orders 24 hr Category Date Time Status Humerus Rt [CR] Stat Exams 04/30/20 20:06 Taken Shoulder Comp Rt [CR] Stat Exams 04/30/20 20:06 Taken Meds: Medications Discontinued Medications Generic Name Dose Route Start Last Admin Trade Name Sinan PRN Reason Stop Dose Admin Lidocaine HCl Confirm 04/30/20 20:03 Xylocaine 2% Jelly Administered 04/30/20 20:04 Dose 10 ml .ROUTE .STK-MED ONE Lidocaine HCl 10 ml 04/30/20 20:14 04/30/20 20:15 Xylocaine 2% Jelly MUCMEM 04/30/20 20:15 10 ml ONETIME ONE Administration - Re-Assessments/Exams Free Text/Narrative Re-Assessment/Exam: Patient is an 79-year-old male presenting to the emergency department with complaints of urinary retention after having his Cuevas catheter removed today. Bladder scan completed by the triage nurse yielded greater than 800 mils of u rine in the bladder. A Cuevas catheter is being placed. Patient does have some pain to his right upper arm after a fall in the waiting room. He did not hit his head. The fall was witnessed. Denies any additional pain to his neck or back c-collar was intact at the time of the fall. He was able to ambulate without difficulty after the fall. On exam, there is no swelling, ecchymosis, or obvious deformity to the right upper arm. He has full range of motion. We will complete an x-ray of the right shoulder down to the elbow to ensure that there is no evidence of fracture, however my suspicion for this is quite low. 04/30/20 21:21 X-rays of the right shoulder humerus, and elbow were negative for any acute abnormalities. Patient has had a significant amount of clear yellow urine out the catheter. On review of his visit from yesterday, urine culture was completed and is growing out gram-negative rods. Plan was to start patient on an antibiotic, however after visiting with him and his , his become apparent that he was already started on an antibiotic for urinary tract infection by his primary care provider, Dr. Neel Suero. The is unsure if it is cephalexin or ciprofloxacin, however it is twice a day dosing for 5 days so my suspicion is that it ciprofloxacin. I would recommend follow-up with his primary care provider in a few days to discuss plans for removal of the catheter. Return to ER for any new or worsening symptoms. Departure - Departure Time of Disposition: 21:24 Disposition: Home, Self-Care 01 Condition: Good Clinical Impression: Retention of urine Contusion of arm, right Qualifiers: Encounter type: initial encounter Qualified Code(s): S40.021A - Contusion of right upper arm, initial encounter - Discharge Information *PRESCRIPTION DRUG MONITORING PROGRAM REVIEWED*: No *COPY OF PRESCRIPTION DRUG MONITORING REPORT IN PATIENT GREGG: No Instructions: Indwelling Urinary Catheter Care, Adult, Contusion Referrals: Mandeep Lo MD [Primary Care Provider] - Forms: ED Department Discharge Additional Instructions: You were seen in the emergency department this evening for inability to urinate after having your Cuevas catheter removed today. Cuevas catheter was reinserted in the ER and was draining well. X-rays were completed of your right arm and shoulder as you were having some discomfort after unfortunately sustaining a fall. These were found to be normal. There is no evidence of fracture. Recommend that you continue the antibiotic prescribed to you by your primary care provider. Follow-up with him in a few days to discuss plans for catheter removal. If you develop any new or worsening symptoms of concern, please not hesitate to return to the emergency department. Sepsis Event Note (ED) - Evaluation Sepsis Screening Result: No Definite Risk - Focused Exam Vital Signs: Vital Signs Temp Pulse Resp BP Pulse Ox 04/30/20 19:54 98.0 F 107 H 16 129/90 95 - My Orders Last 24 Hours: My Active Orders 04/30/20 20:06 Humerus Rt [CR] Stat Shoulder Comp Rt [CR] Stat - Assessment/Plan Last 24 Hours: My Active Orders 04/30/20 20:06 Humerus Rt [CR] Stat Shoulder Comp Rt [CR] Stat
--- NOTE | 2020-05-01 09:09 | CR ---
PROCEDURE INFORMATION: Exam: XR Right Humerus Exam date and time: 04/30/2020 8:30 PM Age: 79 years old Clinical indication: Pain; Upper arm; Right; Prior surgery; Surgery date: 6+ months; Patient HX: Tingling numb feeling in arm, post fall TECHNIQUE: Imaging protocol: XR Right humerus Views: 2 or more views. COMPARISON: No relevant prior studies available. FINDINGS: Bones/joints: Right shoulder replacement. Slight corticated contour deformity in the humeral mid diaphysis consistent with healed fracture.There are no suspicious lytic or osteosclerotic lesions. No acute fracture. Soft tissues: Normal. IMPRESSION: 1. No acute findings. 2. Right shoulder replacement. Thank you for allowing us to participate in the care of your patient. Dictated and Authenticated by: Esequiel Harris MD 04/30/2020 10:09 PM Central Time ([place] & [place]) [facility]
--- NOTE | 2020-05-01 09:09 | CR ---
PROCEDURE INFORMATION: Exam: XR Right Shoulder Exam date and time: 04/30/2020 8:32 PM Age: 79 years old Clinical indication: Pain; Right; Prior surgery; Surgery date: 6+ months; Patient HX: Shoulder replaced TECHNIQUE: Imaging protocol: XR Right shoulder. Views: 2 or more views. COMPARISON: No relevant prior studies available. FINDINGS: Bones/joints: Right shoulder arthroplasty. 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 Hardware in the visible cervical spine. Soft tissues: Normal. IMPRESSION: 1. Right shoulder arthroplasty. 2. No acute findings. 3. 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 Thank you for allowing us to participate in the care of your patient. Dictated and Authenticated by: Esequiel Harris MD 04/30/2020 10:07 PM Central Time ([place] & [place]) [facility]
== END 2020-04-30 21:40 | disposition home or self-care (01) ==
LOC: JD.ED 19:36
DX: N40.1 Benign prostatic hyperplasia with lower urinary tract symptoms (principal); R33.8 Other retention of urine; S40.021A Contusion of right upper arm, initial encounter; I25.10 Atherosclerotic heart disease of native coronary artery without angina pectoris; I10 Essential (primary) hypertension; J44.9 Chronic obstructive pulmonary disease, unspecified; E11.9 Type 2 diabetes mellitus without complications; Z86.73 Personal history of transient ischemic attack (TIA), and cerebral infarction without residual deficits; Z88.8 Allergy status to other drugs, medicaments and biological substances; Z88.6 Allergy status to analgesic agent; Z91.048 Other nonmedicinal substance allergy status; Z88.5 Allergy status to narcotic agent; Z95.1 Presence of aortocoronary bypass graft; W19.XXXA Unspecified fall, initial encounter
CPT/HCPCS: 51702; 73030-26-RT; 73030-RT; 73060-26-RT; 73060-RT; 99283; 99283-25

== ENCOUNTER 2020-10-24 14:03 | Inpatient (IN) | payer MEDICARE, OTHER ==
[2020-10-24] MEDS ORDERED: Sodium Chloride 0.9% 1,000 ML IV ONE ×2 (14:34→17:29)
[2020-10-24] MEDS ORDERED: Sodium Chloride 0.9% 10 ML Syringe FLUSH PRN (14:34)
[2020-10-24] MEDS ORDERED: Acetaminophen 325 MG Tab PO ONE (14:47)
--- NOTE | 2020-10-24 14:54 | EDM.PDOC ---
ED HPI GENERAL MEDICAL PROBLEM - General Chief Complaint: Gastrointestinal Problem Stated Complaint: FEVER,WEAKNESS,DIARRHEA Time Seen by Provider: 10/24/20 14:33 Source of Information: Reports: Patient, RN Notes Reviewed History Limitations: Reports: No Limitations - History of Present Illness INITIAL COMMENTS - FREE TEXT/NARRATIVE: Patient is an 80-year-old male who presents to the ER with his for evaluation of his fever/weakness/diarrhea. The notes that he does act like this from time to time, when he gets anesthesia for surgeries. She states that it takes for 5 days for him to "wake up from the anesthesia". Patient states that he is able to walk on his own most of the time with a walker but he developed a fever of around 99 F, 4- 5 episodes of loose diarrhea earlier today. Triage nurse did state that he had some difficulty assisting himself to his room when being brought back. Patient and note that he is to be scheduled to pull all of his teeth out of the top portion of his jaw to have a plate placed. He was started on amoxicillin, with 2 doses given, one last night, 1 this morning. She was not told if the teeth were infected however the patient states he did not get much sleep last night due to the pain in his teeth. Him and his have both had both Covid vaccines, and they did recently have a COVID-19 screen done last week that was negative. She notes that they have not had any other sick-like contacts that she is aware of. Primary care provider is Dr. Lo. mouth Pain Score (Numeric/FACES): 5 - Related Data Allergies Allergy/AdvReac Type Severity Reaction Status Date / Time atorvastatin calcium Allergy Unknown Cough Verified 10/24/20 14:29 [From Lipitor] acetaminophen Allergy Cannot Verified 10/24/20 14:29 [From Lorcet ] Remember adhesive Allergy Rash Verified 10/24/20 14:29 hydrocodone bitartrate Allergy Cannot Verified 10/24/20 14:29 [From Lorcet ] Remember lisinopril Allergy Cannot Verified 10/24/20 14:29 Remember simvastatin [From Zocor] Allergy Cannot Verified 10/24/20 14:29 Remember Home Meds: Home Meds Ipratropium [Atrovent] 0.5 mg NEB Q4HRRT #30 neb 12/20/16 [Rx] Albuterol Sulfate [Albuterol Sulfate HFA] 2 puff INH Q4HR PRN 10/24/20 [History] Amoxicillin 500 mg PO TID 10/24/20 [History] Apixaban [Eliquis] 5 mg PO BID 10/24/20 [History] Aspirin [Ecotrin EC] 81 mg PO DAILY 10/24/20 [History] Bimatoprost [LUMIGAN 0.01% Ophth Soln] 1 drop EYEBOTH DAILY 10/24/20 [History] Finasteride 5 mg PO DAILY 10/24/20 [History] Fish Oil/[place]-3 Fatty Acids [Fish Oil 1,000 MG] 1 tab PO DAILY 10/24/20 [History] Losartan [Cozaar] 12.5 mg PO DAILY 10/24/20 [History] Melatonin 10 mg PO QPM 10/24/20 [History] Metoprolol Succinate 50 mg PO DAILY 10/24/20 [History] Potassium Chloride 10 meq PO DAILY 10/24/20 [History] SitaGLIPtin [Januvia] 100 mg PO DAILY 10/24/20 [History] Tamsulosin [Flomax] 0.4 mg PO DAILY 10/24/20 [History] Tiotropium [Spiriva HandiHaler] 1 inh INH DAILY 10/24/20 [History] Ubidecarenone [Coq-10] 100 mg PO BID 10/24/20 [History] glipiZIDE [Glipizide ER] 5 mg PO BID 10/24/20 [History] metFORMIN [Glucophage] 500 mg PO BID 10/24/20 [History] Past Medical History HEENT History: Reports: Macular Degeneration Cardiovascular History: Reports: CAD, High Cholesterol, Hypertension Other Cardiovascular History: 5 vessel bypass 2007 Respiratory History: Reports: COPD, Sleep Apnea Other Respiratory History: sleep apnea wears cpap at hs Gastrointestinal History: Reports: GERD Genitourinary History: Reports: BPH, Retention, Urinary Musculoskeletal History: Reports: Other (See Below) Neurological History: Reports: CVA Psychiatric History: Reports: None Endocrine/Metabolic History: Reports: Diabetes, Type II Hematologic History: Reports: Blood Transfusion(s) Oncologic (Cancer) History: Reports: Bladder Other Oncologic History: bladder cancer Dermatologic History: Reports: None - Infectious Disease History Infectious Disease History: Reports: None - Past Surgical History HEENT Surgical History: Reports: Cataract Surgery, Tonsillectomy Cardiovascular Surgical History: Reports: Coronary Artery Bypass, Valve Replacement Male Surgical History: Reports: TURBT-Transurethral Resection of Bladder Tumor Other Male Surgeries/Procedures: BPH Neurological Surgical History: Reports: C-Spine, Lumbar Spine Musculoskeletal Surgical History: Reports: Knee Replacement, Shoulder Replacement Other Musculoskeletal Surgeries/Procedures:: 2 back surgeries resulting in balance problems Social & Family History - Family History Family Medical History: No Pertinent Family History - Tobacco Use Tobacco Use Status *Q: Former Tobacco User Used Tobacco, but Quit: Yes Month/Year Tobacco Last Used: 2006 - Caffeine Use Caffeine Use: Reports: Coffee - Recreational Drug Use Recreational Drug Use: No - Living Situation & Occupation Living situation: Reports: , with Spouse Occupation: Retired ED ROS GENERAL - Review of Systems Review Of Systems: Comprehensive ROS is negative, except as noted in HPI. ED EXAM, GI/ABD - Physical Exam Exam: See Below Exam Limited By: No Limitations General Appearance: Alert, WD/WN, No Apparent Distress Respiratory/Chest: No Respiratory Distress, Lungs Clear, Normal Breath Sounds, No Accessory Muscle Use, Chest Non-Tender Cardiovascular: Normal Peripheral Pulses, Regular Rate, Rhythm, No Edema GI/Abdominal Exam: Normal Bowel Sounds, Soft, Non-Tender, No Distention, No Mass Extremities: Normal Inspection, Normal Capillary Refill Neurological: Alert, Oriented, Normal Cognition, No Motor/Sensory Deficits Psychiatric: Normal Affect, Normal Mood Skin Exam: Warm (warm to the touch), Dry, Intact, Normal Color, No Rash Course - Vital Signs Last Recorded V/S: Last Vital Signs Temp 103.3 F H 10/24/20 16:13 Pulse 78 10/24/20 16:13 Resp 30 H 10/24/20 14:20 BP 154/70 H 10/24/20 16:13 Pulse Ox 95 10/24/20 16:13 - Orders/Labs/Meds Orders: Active Orders 24 hr Category Date Time Status Peripheral IV Care [RC] . DIRECTED Care 10/24/20 14:45 Active Chest 2V [CR] Stat Exams 10/24/20 14:34 Taken C DIFFICILE PCR W/REFLEX [MOLEC] Stat Lab 10/24/20 16:26 Ordered CULTURE BLOOD [BC] Stat Lab 10/24/20 15:25 Received CULTURE BLOOD [BC] Stat Lab 10/24/20 15:33 Received CULTURE URINE [RM] Routine Lab 10/24/20 14:22 Received Piperacillin/Tazobactam 4.5 GM - First Dose Med 10/24/20 17:29 Ordered Piperacillin/Tazobactam [Piperacil-Tazobact] 4.5 gm Sodium Chloride 0.9% [Normal Saline] 100 ml IV ONETIME Sodium Chloride 0.9% [Normal Saline] 1,000 ml Med 10/24/20 17:29 Ordered IV ONETIME Sodium Chloride 0.9% [Saline Flush] Med 10/24/20 14:34 Active 10 ml FLUSH ASDIRECTED PRN Blood Culture x2 Reflex Set [OM.PC] Stat Oth 10/24/20 14:34 Ordered Peripheral IV Insertion Adult [OM.PC] Routine Oth 10/24/20 14:45 Ordered Saline Lock Insert [OM.PC] Stat Oth 10/24/20 14:34 Ordered Medication Orders Sodium Chloride (Sodium Chloride 0.9% 10 Ml Syringe) 10 ml FLUSH ASDIRECTED PRN PRN Reason: Keep Vein Open Last Admin: 10/24/20 14:52 Dose: 10 ml Documented by: KHOI Labs: Laboratory Tests 10/24/20 10/24/20 10/24/20 Range/Units 14:22 14:22 14:22 WBC 9.87 H (4.23-9.07) K/mm3 RBC 4.87 (4.63-6.08) M/mm3 Hgb 15.1 D (13.7-17.5) gm/dl Hct 44.2 (40.1-51.0) % MCV 90.8 D (79.0-92.2) fl MCH 31.0 (25.7-32.2) pg MCHC 34.2 (32.2-35.5) g/dl RDW Std Deviation 48.3 H (35.1-43.9) fL Plt Count 146 L (163-337) K/mm3 MPV 10.4 (9.4-12.3) fl Neutrophils % (Manual) 85 H (40-60) % Band Neutrophils % 1 (0-10) % Lymphocytes % (Manual) 10 L (20-40) % Atypical Lymphs % 0 % Monocytes % (Manual) 4 (2-10) % Eosinophils % (Manual) 0 L (0.8-7.0) % Basophils % (Manual) 0 L (0.2-1.2) Platelet Estimate Decreased Plt Morphology Comment See note RBC Morph Comment Normal PT 11.9 (9.7-12.0) SECONDS INR 1.11 Sodium (136-145) mEq/L Potassium (3.5-5.1) mEq/L Chloride (98-107) mEq/L Carbon Dioxide (21-32) mEq/L Anion Gap (5-15) BUN (7-18) mg/dL Creatinine (0.7-1.3) mg/dL Est Cr Clr Drug Dosing mL/min Estimated GFR (MDRD) (>60) mL/min BUN/Creatinine Ratio (14-18) Glucose (83-115) mg/dL Lactic Acid (0.4-2.0) mmol/L Calcium (8.5-10.1) mg/dL Total Bilirubin (0.2-1.0) mg/dL AST (15-37) U/L ALT (16-63) U/L Alkaline Phosphatase (46-116) U/L C-Reactive Protein (<1.0) mg/dL Total Protein (6.4-8.2) g/dl Albumin (3.4-5.0) g/dl Globulin gm/dL Albumin/Globulin Ratio (1-2) Urine Color Yellow (Yellow) Urine Appearance Clear (Clear) Urine pH 7.0 (5.0-8.0) Ur Specific [place] 1.025 (1.005-1.030) Urine Protein 2+ H (Negative) Urine Glucose (UA) 1+ H (Negative) Urine Ketones Negative (Negative) Urine Occult Blood 1+ H (Negative) Urine Nitrite Negative (Negative) Urine Bilirubin Negative (Negative) Urine Urobilinogen 0.2 (0.2-1.0) Ur Leukocyte Esterase Negative (Negative) Urine RBC 10-20 H (0-5) /hpf Urine WBC 0-5 (0-5) /hpf Ur Squamous Epith Cells 0-5 (0-5) /hpf Urine Bacteria Occasional (FEW) /hpf Urine Mucus Not seen (FEW) /hpf Influenza Type A RNA (NEGATIVE) Influenza Type B RNA (NEGATIVE) SARS-CoV-2 RNA (EMMA) (NEGATIVE) 10/24/20 10/24/20 10/24/20 Range/Units 14:22 15:33 16:25 WBC (4.23-9.07) K/mm3 RBC (4.63-6.08) M/mm3 Hgb (13.7-17.5) gm/dl Hct (40.1-51.0) % MCV (79.0-92.2) fl MCH (25.7-32.2) pg MCHC (32.2-35.5) g/dl RDW Std Deviation (35.1-43.9) fL Plt Count (163-337) K/mm3 MPV (9.4-12.3) fl Neutrophils % (Manual) (40-60) % Band Neutrophils % (0-10) % Lymphocytes % (Manual) (20-40) % Atypical Lymphs % % Monocytes % (Manual) (2-10) % Eosinophils % (Manual) (0.8-7.0) % Basophils % (Manual) (0.2-1.2) Platelet Estimate Plt Morphology Comment RBC Morph Comment PT (9.7-12.0) SECONDS INR Sodium 138 (136-145) mEq/L Potassium 3.4 L (3.5-5.1) mEq/L Chloride 100 (98-107) mEq/L Carbon Dioxide 26 (21-32) mEq/L Anion Gap 15.4 H (5-15) BUN 12 (7-18) mg/dL Creatinine 1.2 (0.7-1.3) mg/dL Est Cr Clr Drug Dosing 45.14 mL/min Estimated GFR (MDRD) 58 (>60) mL/min BUN/Creatinine Ratio 10.0 L (14-18) Glucose 240 H (83-115) mg/dL Lactic Acid 1.9 (0.4-2.0) mmol/L Calcium 9.2 (8.5-10.1) mg/dL Total Bilirubin 0.7 (0.2-1.0) mg/dL AST 21 (15-37) U/L ALT 25 (16-63) U/L Alkaline Phosphatase 70 (46-116) U/L C-Reactive Protein 8.4 H* (<1.0) mg/dL Total Protein 8.1 (6.4-8.2) g/dl Albumin 3.9 (3.4-5.0) g/dl Globulin 4.2 gm/dL Albumin/Globulin Ratio 0.9 L (1-2) Urine Color (Yellow) Urine Appearance (Clear) Urine pH (5.0-8.0) Ur Specific [place] (1.005-1.030) Urine Protein (Negative) Urine Glucose (UA) (Negative) Urine Ketones (Negative) Urine Occult Blood (Negative) Urine Nitrite (Negative) Urine Bilirubin (Negative) Urine Urobilinogen (0.2-1.0) Ur Leukocyte Esterase (Negative) Urine RBC (0-5) /hpf Urine WBC (0-5) /hpf Ur Squamous Epith Cells (0-5) /hpf Urine Bacteria (FEW) /hpf Urine Mucus (FEW) /hpf Influenza Type A RNA Negative (NEGATIVE) Influenza Type B RNA Negative (NEGATIVE) SARS-CoV-2 RNA (EMMA) Negative (NEGATIVE) Meds: Medications Generic Name Dose Route Start Last Admin Trade Name Freq PRN Reason Stop Dose Admin Sodium Chloride 10 ml 10/24/20 14:34 10/24/20 14:52 Sodium Chloride 0.9% 10 Ml Syringe FLUSH 10 ml ASDIRECTED PRN Administration Keep Vein Open Discontinued Medications Generic Name Dose Route Start Last Admin Trade Name Freq PRN Reason Stop Dose Admin Acetaminophen 650 mg 10/24/20 14:47 10/24/20 14:51 Acetaminophen 325 Mg Tab PO 10/24/20 14:48 650 mg NOW ONE Administration Sodium Chloride 1,000 mls @ 999 mls/hr 10/24/20 14:34 10/24/20 14:52 Normal Saline IV 10/24/20 15:34 999 mls/hr BOLUS ONE Administration Protocol Ketorolac Tromethamine 30 mg 10/24/20 16:12 10/24/20 16:19 Ketorolac 30 Mg/Ml Sdv IVPUSH 10/24/20 16:13 30 mg ONETIME ONE Administration - Re-Assessments/Exams Free Text/Narrative Re-Assessment/Exam: 10/24/20 14:54 Patient presents to the ER for the evaluation of his fever/diarrhea and weakness. IV was placed at time of triage, we will go ahead and get a few labs, imaging for further evaluation. Patient will be given 1 dose of oral Tylenol for initial management. 10/24/20 16:27 Was made aware by nursing, that the patient's temperature is still somewhat high at 103F. We will give a dose of IV Toradol for management. Patient's laboratory evaluation has been done, and CBC demonstrates a white blood cell count elevated at 9.87 with 85% neutrophils and 1 band. Potassium on the low side at 3.4, anion gap is 15.4, glucose elevated at 240, CRP is elevated at 8.4. Urinalysis demonstrates 10-20 red blood cells per high-power field however nitrites negative, leukocyte esterase negative. Urine culture has been sent for further evaluation. I do suspect the patient will need hospitalization for ongoing infection likely from his dental issues. I have ordered a coronavirus test, C. difficile tests, blood cultures and urine cultures are pending. 10/24/20 17:30 I was able to talk with our hospitalist, Dr. Flores and he does accept the patient for admission at this time. He does request IV Zosyn and some fluids to be given for initial management. Departure - Departure Time of Disposition: 17:30 Disposition: Refer to Observation Condition: Good Clinical Impression: Dental abscess, Weakness Diarrhea Qualifiers: Diarrhea type: unspecified type Qualified Code(s): R19.7 - Diarrhea, unspecified - Discharge Information *PRESCRIPTION DRUG MONITORING PROGRAM REVIEWED*: No *COPY OF PRESCRIPTION DRUG MONITORING REPORT IN PATIENT GREGG: No Referrals: Mandeep Lo MD [Primary Care Provider] - Forms: ED Department Discharge Sepsis Event Note (ED) - Evaluation Sepsis Screening Result: No Definite Risk - Focused Exam Vital Signs: Vital Signs Temp Temp Pulse Resp BP Pulse Ox 10/24/20 16:13 103.3 F H 78 154/70 H 95 10/24/20 14:51 101.3 F H 10/24/20 14:20 101.4 F H 98 30 H 175/84 H 94 L - My Orders Last 24 Hours: My Active Orders 10/24/20 14:22 CULTURE URINE [RM] Routine 10/24/20 14:34 Chest 2V [CR] Stat Sodium Chloride 0.9% [Saline Flush] 10 ml FLUSH ASDIRECTED PRN Blood Culture x2 Reflex Set [OM.PC] Stat Saline Lock Insert [OM.PC] Stat 10/24/20 14:45 Peripheral IV Care [RC] . DIRECTED Peripheral IV Insertion Adult [OM.PC] Routine 10/24/20 15:25 CULTURE BLOOD [BC] Stat 10/24/20 15:33 CULTURE BLOOD [BC] Stat 10/24/20 16:26 C DIFFICILE PCR W/REFLEX [MOLEC] Stat 10/24/20 17:29 Piperacillin/Tazobactam 4.5 GM - First Dose Piperacillin/Tazobactam [Piperacil- Tazobact] 4.5 gm Sodium Chloride 0.9% [Normal Saline] 100 ml IV ONETIME Sodium Chloride 0.9% [Normal Saline] 1,000 ml IV ONETIME - Assessment/Plan Last 24 Hours: My Active Orders 10/24/20 14:22 CULTURE URINE [RM] Routine 10/24/20 14:34 Chest 2V [CR] Stat Sodium Chloride 0.9% [Saline Flush] 10 ml FLUSH ASDIRECTED PRN Blood Culture x2 Reflex Set [OM.PC] Stat Saline Lock Insert [OM.PC] Stat 10/24/20 14:45 Peripheral IV Care [RC] . DIRECTED Peripheral IV Insertion Adult [OM.PC] Routine 10/24/20 15:25 CULTURE BLOOD [BC] Stat 10/24/20 15:33 CULTURE BLOOD [BC] Stat 10/24/20 16:26 C DIFFICILE PCR W/REFLEX [MOLEC] Stat 10/24/20 17:29 Piperacillin/Tazobactam 4.5 GM - First Dose Piperacillin/Tazobactam [Piperacil- Tazobact] 4.5 gm Sodium Chloride 0.9% [Normal Saline] 100 ml IV ONETIME Sodium Chloride 0.9% [Normal Saline] 1,000 ml IV ONETIME
[2020-10-24] MEDS ORDERED: Ketorolac 30 MG/ML SDV IVPUSH ONE (16:12)
[2020-10-24 17:07] LABS: CORONAVIRUS COVID-19 NAA NEGATIVE (NEGATIVE)
[2020-10-24] MEDS ORDERED: Piperacillin/Tazobactam 4.5 GM in Sodium Chloride 0.9% 100 ML IV ONE (17:29)
[2020-10-24] MEDS ORDERED: Promethazine 12.5 MG in Sodium Chloride 0.9% 50 ML IV PRN (18:13)
[2020-10-24] MEDS ORDERED: Albuterol/Ipratropium 3.0-0.5 MG/3 ML Neb Soln NEB PRN (18:13)
[2020-10-24] MEDS ORDERED: Morphine 2 MG/ML SYRINGE IVPUSH PRN (18:13)
[2020-10-24] MEDS ORDERED: Acetaminophen 650 MG Supp RECTAL PRN (18:13)
[2020-10-24] MEDS ORDERED: Enoxaparin 40 MG/0.4 ML Syringe SUBCUT SCH (18:15)
[2020-10-24] MEDS ORDERED: hydrALAZINE 20 MG/ML SDV IVPUSH PRN (18:21)
[2020-10-24] MEDS ORDERED: Albuterol 6.7 GM Inhaler INH PRN (18:22)
--- NOTE | 2020-10-24 18:45 | PCM.HP.2 ---
H&P History of Present Illness - General Date of Service: 10/24/20 Admit Problem/Dx: Admission Diagnosis/Problem Admission Diagnosis/Problem Weakness Source of Information: Patient ( and chart) - History of Present Illness Initial Comments - Free Text/Narative: Patient is an 80-year-old male with a history of diabetes and high blood pressure who was brought to the ER due to fever, generalized weakness and diarrhea. Patient is a poor historian. Patient started to have generalized weakness this morning. He is so weak so that he is not able to stand and walk. Normally he can walk with a walker. He was found to have increased temperature. He has been having diarrhea for 2 days with loose stool v 4 a day. He also report that he urinates more frequently but denies dysuria. He had his teeth cleaned 2 days ago and he started amoxicillin last night for scheduled a procedure to pull all of his teeth out of the top portion of his jaw to have a plate placed. He denies teeth infection but he did not get much sleep last night due to the pain in his teeth. In the ER, he was found to have temperature up to 39.6, tachypnea up to 30, lactic acid 1.9 and CRP 8.4. mouth Pain Score (Numeric/FACES): 5 - Related Data Allergies/Adverse Reactions: Allergies Allergy/AdvReac Type Severity Reaction Status Date / Time atorvastatin calcium Allergy Unknown Cough Verified 10/24/20 14:29 [From Lipitor] acetaminophen Allergy Cannot Verified 10/24/20 14:29 [From Lorcet ] Remember adhesive Allergy Rash Verified 10/24/20 14:29 hydrocodone bitartrate Allergy Cannot Verified 10/24/20 14:29 [From Lorcet ] Remember lisinopril Allergy Cannot Verified 10/24/20 14:29 Remember simvastatin [From Zocor] Allergy Cannot Verified 10/24/20 14:29 Remember Home Medications: Home Meds Albuterol Sulfate [Albuterol Sulfate HFA] 2 puff INH Q4HR PRN 10/24/20 [History] Apixaban [Eliquis] 5 mg PO BID 10/24/20 [History] Aspirin [Ecotrin EC] 81 mg PO DAILY 10/24/20 [History] Bimatoprost [LUMIGAN 0.01% Ophth Soln] 1 drop EYEBOTH DAILY 10/24/20 [History] Ezetimibe 10 mg PO DAILY 10/24/20 [History] Finasteride 5 mg PO DAILY 10/24/20 [History] Fish Oil/Ellinger-3 Fatty Acids [Fish Oil 1,000 MG] 1 tab PO DAILY 10/24/20 [History] Losartan [Cozaar] 12.5 mg PO DAILY 10/24/20 [History] Magnesium Carb/Aluminum Hydrox [Antacid Ex-Str Tablet Chew] 1 tab PO DAILY 10/24/20 [History] Melatonin 10 mg PO QPM 10/24/20 [History] Metoprolol Succinate 50 mg PO DAILY 10/24/20 [History] Potassium Chloride 10 meq PO DAILY 10/24/20 [History] Pravastatin [Pravachol] 40 mg PO DAILY 10/24/20 [History] Sennosides/Docusate Sodium [Senna Plus Tablet] 1 tab PO BID PRN 10/24/20 [History] SitaGLIPtin [Januvia] 100 mg PO DAILY 10/24/20 [History] Tamsulosin [Flomax] 0.4 mg PO DAILY 10/24/20 [History] Tiotropium [Spiriva HandiHaler] 1 inh INH DAILY 10/24/20 [History] Ubidecarenone [Coq-10] 100 mg PO BID 10/24/20 [History] Vit C/E/Zn/Coppr/Lutein/Zeaxan [Preservision Areds 2 Softgel] 1 tab PO BID 10/24/20 [History] glipiZIDE [Glipizide ER] 5 mg PO BID 10/24/20 [History] metFORMIN [Glucophage] 500 mg PO BID 10/24/20 [History] Past Medical History HEENT History: Reports: Macular Degeneration Cardiovascular History: Reports: CAD, High Cholesterol, Hypertension Other Cardiovascular History: 5 vessel bypass 2007 Respiratory History: Reports: COPD, Sleep Apnea Other Respiratory History: sleep apnea wears cpap at hs Gastrointestinal History: Reports: GERD Genitourinary History: Reports: BPH, Retention, Urinary Musculoskeletal History: Reports: Other (See Below) Neurological History: Reports: CVA Psychiatric History: Reports: None Endocrine/Metabolic History: Reports: Diabetes, Type II Hematologic History: Reports: Blood Transfusion(s) Oncologic (Cancer) History: Reports: Bladder Other Oncologic History: bladder cancer Dermatologic History: Reports: None - Infectious Disease History Infectious Disease History: Reports: None - Past Surgical History HEENT Surgical History: Reports: Cataract Surgery, Tonsillectomy Cardiovascular Surgical History: Reports: Coronary Artery Bypass, Valve Replacement Male Surgical History: Reports: TURBT-Transurethral Resection of Bladder Tumor Other Male Surgeries/Procedures: BPH Neurological Surgical History: Reports: C-Spine, Lumbar Spine Musculoskeletal Surgical History: Reports: Knee Replacement, Shoulder Replacement Other Musculoskeletal Surgeries/Procedures:: 2 back surgeries resulting in aubrey nce problems Social & Family History - Family History Family Medical History: No Pertinent Family History (Denies genetic diseases in family) - Tobacco Use Tobacco Use Status *Q: Former Tobacco User Used Tobacco, but Quit: Yes Month/Year Tobacco Last Used: 2006 - Caffeine Use Caffeine Use: Reports: Coffee - Recreational Drug Use Recreational Drug Use: No - Living Situation & Occupation Living situation: Reports: , with Spouse Occupation: Retired H&P Review of Systems - Review of Systems: Review Of Systems: See Below General: Reports: Fever, Weakness Pulmonary: Reports: No Symptoms Cardiovascular: Reports: No Symptoms Gastrointestinal: Reports: Diarrhea Genitourinary: Reports: Frequency Musculoskeletal: Reports: No Symptoms Skin: Reports: No Symptoms Psychiatric: Reports: No Symptoms Neurological: Reports: No Symptoms Hematologic/Lymphatic: Reports: No Symptoms Immunologic: Reports: No Symptoms Exam - Exam Exam: See Below - Vital Signs Vital Signs: Last Vital Signs Temp 39.6 C H 10/24/20 16:13 Pulse 78 10/24/20 16:13 Resp 30 H 10/24/20 14:20 BP 154/70 H 10/24/20 16:13 Pulse Ox 95 10/24/20 16:13 Weight: 71.668 kg - Exam General: Alert, Oriented, Cooperative HEENT: Conjunctiva Clear, EOMI, Pupils Equal, Pupils Reactive Neck: Supple, Trachea Midline, Full Range of Motion Cardiovascular: Irregular Rhythm GI/Abdominal Exam: Normal Bowel Sounds, Soft, Non-Tender, No Organomegaly Extremities: Normal Inspection, Normal Range of Motion, Non-Tender, No Pedal Edema Skin: Warm, Dry, Intact Neurological: Strength Equal Bilateral, Normal Speech, Normal Tone, Sensation Intact Neuro Extensive - Mental Status: Alert, Oriented x3, Normal Mood/Affect Psychiatric: Normal Mood - Patient Data Lab Results Last 24 hrs: Laboratory Results - last 24 hr 10/24/20 10/24/20 10/24/20 Range/Units 14:22 14:22 14:22 WBC 9.87 H (4.23-9.07) K/mm3 RBC 4.87 (4.63-6.08) M/mm3 Hgb 15.1 D (13.7-17.5) gm/dl Hct 44.2 (40.1-51.0) % MCV 90.8 D (79.0-92.2) fl MCH 31.0 (25.7-32.2) pg MCHC 34.2 (32.2-35.5) g/dl RDW Std Deviation 48.3 H (35.1-43.9) fL Plt Count 146 L (163-337) K/mm3 MPV 10.4 (9.4-12.3) fl Neutrophils % (Manual) 85 H (40-60) % Band Neutrophils % 1 (0-10) % Lymphocytes % (Manual) 10 L (20-40) % Atypical Lymphs % 0 % Monocytes % (Manual) 4 (2-10) % Eosinophils % (Manual) 0 L (0.8-7.0) % Basophils % (Manual) 0 L (0.2-1.2) Platelet Estimate Decreased Plt Morphology Comment See note RBC Morph Comment Normal PT 11.9 (9.7-12.0) SECONDS INR 1.11 Sodium (136-145) mEq/L Potassium (3.5-5.1) mEq/L Chloride (98-107) mEq/L Carbon Dioxide (21-32) mEq/L Anion Gap (5-15) BUN (7-18) mg/dL Creatinine (0.7-1.3) mg/dL Est Cr Clr Drug Dosing mL/min Estimated GFR (MDRD) (>60) mL/min BUN/Creatinine Ratio (14-18) Glucose (83-115) mg/dL Lactic Acid (0.4-2.0) mmol/L Calcium (8.5-10.1) mg/dL Magnesium (1.8-2.4) mg/dl Total Bilirubin (0.2-1.0) mg/dL AST (15-37) U/L ALT (16-63) U/L Alkaline Phosphatase (46-116) U/L Troponin I (0.00-0.056) ng/mL C-Reactive Protein (<1.0) mg/dL Total Protein (6.4-8.2) g/dl Albumin (3.4-5.0) g/dl Globulin gm/dL Albumin/Globulin Ratio (1-2) Urine Color Yellow (Yellow) Urine Appearance Clear (Clear) Urine pH 7.0 (5.0-8.0) Ur Specific [place] 1.025 (1.005-1.030) Urine Protein 2+ H (Negative) Urine Glucose (UA) 1+ H (Negative) Urine Ketones Negative (Negative) Urine Occult Blood 1+ H (Negative) Urine Nitrite Negative (Negative) Urine Bilirubin Negative (Negative) Urine Urobilinogen 0.2 (0.2-1.0) Ur Leukocyte Esterase Negative (Negative) Urine RBC 10-20 H (0-5) /hpf Urine WBC 0-5 (0-5) /hpf Ur Squamous Epith Cells 0-5 (0-5) /hpf Urine Bacteria Occasional (FEW) /hpf Urine Mucus Not seen (FEW) /hpf Influenza Type A RNA (NEGATIVE) Influenza Type B RNA (NEGATIVE) SARS-CoV-2 RNA (EMMA) (NEGATIVE) 10/24/20 10/24/20 10/24/20 Range/Units 14:22 14:22 14:22 WBC (4.23-9.07) K/mm3 RBC (4.63-6.08) M/mm3 Hgb (13.7-17.5) gm/dl Hct (40.1-51.0) % MCV (79.0-92.2) fl MCH (25.7-32.2) pg MCHC (32.2-35.5) g/dl RDW Std Deviation (35.1-43.9) fL Plt Count (163-337) K/mm3 MPV (9.4-12.3) fl Neutrophils % (Manual) (40-60) % Band Neutrophils % (0-10) % Lymphocytes % (Manual) (20-40) % Atypical Lymphs % % Monocytes % (Manual) (2-10) % Eosinophils % (Manual) (0.8-7.0) % Basophils % (Manual) (0.2-1.2) Platelet Estimate Plt Morphology Comment RBC Morph Comment PT (9.7-12.0) SECONDS INR Sodium 138 (136-145) mEq/L Potassium 3.4 L (3.5-5.1) mEq/L Chloride 100 (98-107) mEq/L Carbon Dioxide 26 (21-32) mEq/L Anion Gap 15.4 H (5-15) BUN 12 (7-18) mg/dL Creatinine 1.2 (0.7-1.3) mg/dL Est Cr Clr Drug Dosing 45.14 mL/min Estimated GFR (MDRD) 58 (>60) mL/min BUN/Creatinine Ratio 10.0 L (14-18) Glucose 240 H (83-115) mg/dL Lactic Acid (0.4-2.0) mmol/L Calcium 9.2 (8.5-10.1) mg/dL Magnesium 1.8 (1.8-2.4) mg/dl Total Bilirubin 0.7 (0.2-1.0) mg/dL AST 21 (15-37) U/L ALT 25 (16-63) U/L Alkaline Phosphatase 70 (46-116) U/L Troponin I 0.023 (0.00-0.056) ng/mL C-Reactive Protein 8.4 H* (<1.0) mg/dL Total Protein 8.1 (6.4-8.2) g/dl Albumin 3.9 (3.4-5.0) g/dl Globulin 4.2 gm/dL Albumin/Globulin Ratio 0.9 L (1-2) Urine Color (Yellow) Urine Appearance (Clear) Urine pH (5.0-8.0) Ur Specific [place] (1.005-1.030) Urine Protein (Negative) Urine Glucose (UA) (Negative) Urine Ketones (Negative) Urine Occult Blood (Negative) Urine Nitrite (Negative) Urine Bilirubin (Negative) Urine Urobilinogen (0.2-1.0) Ur Leukocyte Esterase (Negative) Urine RBC (0-5) /hpf Urine WBC (0-5) /hpf Ur Squamous Epith Cells (0-5) /hpf Urine Bacteria (FEW) /hpf Urine Mucus (FEW) /hpf Influenza Type A RNA (NEGATIVE) Influenza Type B RNA (NEGATIVE) SARS-CoV-2 RNA (EMMA) (NEGATIVE) 10/24/20 10/24/20 Range/Units 15:33 16:25 WBC (4.23-9.07) K/mm3 RBC (4.63-6.08) M/mm3 Hgb (13.7-17.5) gm/dl Hct (40.1-51.0) % MCV (79.0-92.2) fl MCH (25.7-32.2) pg MCHC (32.2-35.5) g/dl RDW Std Deviation (35.1-43.9) fL Plt Count (163-337) K/mm3 MPV (9.4-12.3) fl Neutrophils % (Manual) (40-60) % Band Neutrophils % (0-10) % Lymphocytes % (Manual) (20-40) % Atypical Lymphs % % Monocytes % (Manual) (2-10) % Eosinophils % (Manual) (0.8-7.0) % Basophils % (Manual) (0.2-1.2) Platelet Estimate Plt Morphology Comment RBC Morph Comment PT (9.7-12.0) SECONDS INR Sodium (136-145) mEq/L Potassium (3.5-5.1) mEq/L Chloride (98-107) mEq/L Carbon Dioxide (21-32) mEq/L Anion Gap (5-15) BUN (7-18) mg/dL Creatinine (0.7-1.3) mg/dL Est Cr Clr Drug Dosing mL/min Estimated GFR (MDRD) (>60) mL/min BUN/Creatinine Ratio (14-18) Glucose (83-115) mg/dL Lactic Acid 1.9 (0.4-2.0) mmol/L Calcium (8.5-10.1) mg/dL Magnesium (1.8-2.4) mg/dl Total Bilirubin (0.2-1.0) mg/dL AST (15-37) U/L ALT (16-63) U/L Alkaline Phosphatase (46-116) U/L Troponin I (0.00-0.056) ng/mL C-Reactive Protein (<1.0) mg/dL Total Protein (6.4-8.2) g/dl Albumin (3.4-5.0) g/dl Globulin gm/dL Albumin/Globulin Ratio (1-2) Urine Color (Yellow) Urine Appearance (Clear) Urine pH (5.0-8.0) Ur Specific [place] (1.005-1.030) Urine Protein (Negative) Urine Glucose (UA) (Negative) Urine Ketones (Negative) Urine Occult Blood (Negative) Urine Nitrite (Negative) Urine Bilirubin (Negative) Urine Urobilinogen (0.2-1.0) Ur Leukocyte Esterase (Negative) Urine RBC (0-5) /hpf Urine WBC (0-5) /hpf Ur Squamous Epith Cells (0-5) /hpf Urine Bacteria (FEW) /hpf Urine Mucus (FEW) /hpf Influenza Type A RNA Negative (NEGATIVE) Influenza Type B RNA Negative (NEGATIVE) SARS-CoV-2 RNA (EMMA) Negative (NEGATIVE) Result Diagrams: 10/24/20 14:22 10/24/20 14:22 Sepsis Event Note - Evaluation Sepsis Screening Result: No Definite Risk - Focused Exam Vital Signs: Vital Signs Temp Temp Pulse Resp BP Pulse Ox 10/24/20 16:13 39.6 C H 78 154/70 H 95 10/24/20 14:51 38.5 C H 10/24/20 14:20 38.6 C H 98 30 H 175/84 H 94 L Problem List Initiated/Reviewed/Updated: Yes Orders Last 24hrs: Active Orders 24 hr Category Date Time Status Patient Status [ADT] Routine ADT 10/24/20 17:56 Active Bedrest Bedside Commode [RC] ASDIRECTED Care 10/24/20 18:13 Ordered Cardiac Monitoring [RC] CONTINUOUS Care 10/24/20 18:14 Ordered EKG Documentation Completion [RC] STAT Care 10/24/20 17:43 Active Intake and Output [RC] QSHIFT Care 10/24/20 18:14 Ordered Oxygen Therapy [RC] PRN Care 10/24/20 18:13 Ordered Peripheral IV Care [RC] . DIRECTED Care 10/24/20 14:45 Active Pulse Oximetry [RC] CONTINUOUS Care 10/24/20 18:14 Ordered RT Aerosol Therapy [RC] ASDIRECTED Care 10/24/20 18:17 Ordered VTE/DVT Education [RC] PER UNIT ROUTINE Care 10/24/20 18:13 Ordered Vital Signs [RC] Q4H Care 10/24/20 18:13 Ordered Consistent Carbohydrate Diet [DIET] Diet 10/24/20 Dinner Ordered Chest 2V [CR] Stat Exams 10/24/20 14:34 Taken C DIFFICILE PCR W/REFLEX [MOLEC] Stat Lab 10/24/20 16:26 Ordered CBC WITH AUTO DIFF [HEME] DAILY Lab 10/25/20 05:00 Ordered CBC WITH AUTO DIFF [HEME] DAILY Lab 10/26/20 05:00 Ordered CBC WITH AUTO DIFF [HEME] DAILY Lab 10/27/20 05:00 Ordered CBC WITH AUTO DIFF [HEME] DAILY Lab 10/28/20 05:00 Ordered CBC WITH AUTO DIFF [HEME] DAILY Lab 10/29/20 05:00 Ordered COMPREHENSIVE METABOLIC PN,CMP [CHEM] DAILY Lab 10/25/20 05:00 Ordered COMPREHENSIVE METABOLIC PN,CMP [CHEM] DAILY Lab 10/26/20 05:00 Ordered COMPREHENSIVE METABOLIC PN,CMP [CHEM] DAILY Lab 10/27/20 05:00 Ordered COMPREHENSIVE METABOLIC PN,CMP [CHEM] DAILY Lab 10/28/20 05:00 Ordered COMPREHENSIVE METABOLIC PN,CMP [CHEM] DAILY Lab 10/29/20 05:00 Ordered CULTURE BLOOD [BC] Stat Lab 10/24/20 15:25 Received CULTURE BLOOD [BC] Stat Lab 10/24/20 15:33 Received CULTURE URINE [RM] Routine Lab 10/24/20 14:22 Received MAGNESIUM [CHEM] Routine Lab 10/24/20 18:13 Ordered TROPONIN I [CHEM] Routine Lab 10/24/20 18:13 Ordered Acetaminophen [Tylenol] Med 10/24/20 18:13 Ordered 650 mg RECTAL Q6H PRN Albuterol Sulfate Med 10/24/20 18:22 Ordered 2 puff INH Q4HR PRN Albuterol/Ipratropium [DuoNeb 3.0-0.5 MG/3 ML] Med 10/24/20 18:13 Ordered 3 ml NEB Q4H PRN Apixaban [Eliquis] Med 10/24/20 21:00 Ordered 5 mg PO BID Aspirin [Halfprin] Med 10/25/20 09:00 Ordered 81 mg PO DAILY Bimatoprost Med 10/25/20 09:00 Ordered 1 drop EYEBOTH DAILY Ezetimibe [Zetia] Med 10/25/20 09:00 Ordered 10 mg PO DAILY Finasteride [Proscar] Med 10/25/20 09:00 Ordered 5 mg PO DAILY Insulin Lispro [HumaLOG] Med 10/24/20 22:00 Ordered See Protocol SUBCUT QIDACANDBED Losartan [Cozaar] Med 10/25/20 09:00 Ordered 12.5 mg PO DAILY Melatonin [Melatonin] Med 10/25/20 18:00 Ordered 10 mg PO QPM Metoprolol Succinate [Toprol XL] Med 10/25/20 09:00 Ordered 50 mg PO DAILY Morphine Med 10/24/20 18:13 Ordered 2 mg IVPUSH Q4H PRN Piperacillin/Tazobactam [Piperacil-Tazobact] 4.5 gm Med 10/24/20 18:30 Ordered Sodium Chloride 0.9% [Normal Saline] 100 ml IV Q8H Pravastatin Med 10/25/20 09:00 Ordered 40 mg PO DAILY Promethazine [Phenergan] 12.5 mg Med 10/24/20 18:13 Ordered Sodium Chloride 0.9% [Normal Saline] 50 ml IV Q6H SitaGLIPtin Med 10/25/20 09:00 Ordered 100 mg PO DAILY Sodium Chloride 0.9% [Normal Saline] 1,000 ml Med 10/24/20 18:15 Ordered IV ASDIRECTED Sodium Chloride 0.9% [Normal Saline] 1,000 ml Med 10/24/20 17:29 Active IV ONETIME Sodium Chloride 0.9% [Saline Flush] Med 10/24/20 14:34 Active 10 ml FLUSH ASDIRECTED PRN Tamsulosin [Flomax] Med 10/25/20 09:00 Ordered 0.4 mg PO DAILY Tiotropium Med 10/25/20 09:00 Ordered 1 inh INH DAILY glipiZIDE [Glucotrol XL] Med 10/24/20 21:00 Ordered 5 mg PO BID hydrALAZINE [Apresoline] Med 10/24/20 18:21 Ordered 10 mg IVPUSH Q4H PRN Blood Culture x2 Reflex Set [OM.PC] Stat Oth 10/24/20 14:34 Ordered Peripheral IV Insertion Adult [OM.PC] Routine Oth 10/24/20 14:45 Ordered Saline Lock Insert [OM.PC] Stat Oth 10/24/20 14:34 Ordered Resuscitation Status Routine Resus Stat 10/24/20 18:13 Ordered Medication Orders Acetaminophen (Acetaminophen 650 Mg Supp) 650 mg RECTAL Q6H PRN PRN Reason: Pain (mild 1-3) Albuterol/Ipratropium (Albuterol/Ipratropium 3.0-0.5 Mg/3 Ml Neb Soln) 3 ml NEB Q4H PRN PRN Reason: Shortness Of Breath/wheezing Apixaban (Apixaban 5 Mg Tab) 5 mg PO BID [facility] Aspirin (Aspirin 81 Mg Tab.Ec) 81 mg PO DAILY [facility] Ezetimibe (Ezetimibe 10 Mg Tab) 10 mg PO DAILY [facility] Finasteride (Finasteride 5 Mg Tab) 5 mg PO DAILY [facility] Glipizide (Glipizide 5 Mg Tab.Er) 5 mg PO BID [facility] Hydralazine HCl (Hydralazine 20 Mg/Ml Sdv) 10 mg IVPUSH Q4H PRN PRN Reason: Hypertension Sodium Chloride (Normal Saline) 1,000 mls @ 500 mls/hr IV ONETIME ONE Stop: 10/24/20 19:28 Last Admin: 10/24/20 17:43 Dose: 500 mls/hr Documented by: KHOI Sodium Chloride (Normal Saline) 1,000 mls @ 75 mls/hr IV ASDIRECTED [facility] Promethazine HCl 12.5 mg/ (Sodium Chloride) 50.5 mls @ 100 mls/hr IV Q6H PRN PRN Reason: Nausea/Vomiting Piperacillin Sod/Tazobactam (Sod 4.5 gm/ Sodium Chloride) 100 mls @ 25 mls/hr IV Q8H [facility] Insulin Human Lispro (Insulin Lispro 100 Units/Ml 3 Ml Vial) 0 unit SUBCUT QIDACANDBED [facility]; Protocol Losartan Potassium (Losartan 25 Mg Tab) 12.5 mg PO DAILY [facility] Metoprolol Succinate (Metoprolol Succinate 50 Mg Tab.Er) 50 mg PO DAILY [facility] Morphine Sulfate (Morphine 2 Mg/Ml Syringe) 2 mg IVPUSH Q4H PRN PRN Reason: Pain (severe 7-10) Stop: 10/25/20 18:16 Non-Formulary Medication (Albuterol Sulfate) 2 puff INH Q4HR PRN PRN Reason: Shortness of Breath Non-Formulary Medication (Bimatoprost) 1 drop EYEBOTH DAILY [facility] Non-Formulary Medication (Melatonin [Melatonin]) 10 mg PO QPM [facility] Non-Formulary Medication (Pravastatin) 40 mg PO DAILY [facility] Non-Formulary Medication (Sitagliptin) 100 mg PO DAILY [facility] Non-Formulary Medication (Tiotropium) 1 inh INH DAILY [facility] Sodium Chloride (Sodium Chloride 0.9% 10 Ml Syringe) 10 ml FLUSH ASDIRECTED PRN PRN Reason: Keep Vein Open Last Admin: 10/24/20 14:52 Dose: 10 ml Documented by: KHOI Tamsulosin HCl (Tamsulosin 0.4 Mg Cap.Er) 0.4 mg PO DAILY [facility] Assessment/Plan Comment:: Patient is an 80-year-old male with a history of diabetes and high blood pressure who was brought to the ER due to fever, generalized weakness and diarrhea. Assessment: Early sepsis 2nd to dental infection Dental ihfection Generalized weakness Diarrhea Dehydration DM type 2 HTN Leukocytosis with left shift Thrombocytosis Hypokalemia Plan: 1. Patient will be observed in telemetry. Card monitor and pulse ox 2. Patient could have early sepsis due to possible teeth infection/bacteremia T max 39.6 Respiration rate up to 30 Lactic acid 1.9 CRP 8.4 Leukocytosis with left shift Blood culture Fluid bolus 2 L were given in the ER Continue IV fluid Zosyn 3. Had teeth cleaned 2 days ago Teeth pain MRSA screen Zosyn 4. Diabetic diet. Continue home medication glipizide 5 mg twice daily and Januvia. Metformin is on hold. Insulin sliding scale. Adjust insulin based on sugar levels 5. Continue losartan 12.5 mg daily and metoprolol 50 mg daily. Hydralazine as needed 6. No evidence of bleeding. Repeat platelets in the morning 7. Potassium was given. Repeat electrolytes in the morning 8. DVT prophylaxis: Eliquis (do not know why patient is on Eliquis. Will talk to the family) 9. CODE STATUS: DNR/DNI - Mortality Measure Prognosis:: Poor
[2020-10-24] MEDS ORDERED: Potassium Chloride 20 MEQ Tab.ER PO ONE (19:05)
--- NOTE | 2020-10-24 19:05 | PCM.SN.2 ---
- Free Text/Narrative Note: Advanced care plan I explained CPR and intubation to both patient and at length. Patient declined PCR and intubation. All questions were answered.
[2020-10-24] MEDS: Sodium Chloride 0.9% 1,000 ML IV SCH (20:05)
[2020-10-24] MEDS ORDERED: Apixaban 5 MG Tab PO SCH (21:00)
[2020-10-24] MEDS: Apixaban 5 MG Tab **OWN MED PO SCH (23:01)
[2020-10-24] MEDS: Insulin Lispro 100 Units/ML 3 ML Vial SUBCUT SCH (23:02)
[2020-10-25] MEDS: Piperacillin/Tazobactam 4.5 GM in Sodium Chloride 0.9% 100 ML IV SCH ×3 (03:19→17:31)
[2020-10-25] MEDS ORDERED: Potassium Chloride 20 MEQ Tab.ER PO ONE (08:21)
[2020-10-25] MEDS ORDERED: Losartan 25 MG Tab PO SCH (09:00)
[2020-10-25] MEDS ORDERED: POTASSIUM CHLORIDE 10 MEQ PO ONE (09:00)
[2020-10-25] MEDS ORDERED: Non-Formulary Medication 1 Each (Pravastatin 40 MG Tablet) PO SCH (09:00)
[2020-10-25] MEDS ORDERED: Ezetimibe 10 MG Tab PO SCH (09:00)
[2020-10-25] MEDS ORDERED: Metoprolol Succinate 50 MG Tab.ER **OWN MED PO SCH (09:00)
[2020-10-25] MEDS ORDERED: Losartan 25 MG Tab **PTOM PO SCH (09:00)
[2020-10-25] MEDS ORDERED: Finasteride 5 MG Tab **OWN MED PO SCH (09:00)
[2020-10-25] MEDS ORDERED: Aspirin 81 MG Tab.EC PO SCH (09:00)
[2020-10-25] MEDS: Apixaban 5 MG Tab **OWN MED PO SCH ×2 (09:09→20:58)
[2020-10-25] MEDS: PRAVASTATIN 20 MG PO SCH ×2 (09:13→20:58)
[2020-10-25] MEDS ORDERED: Aspirin 81 MG Tab.EC **OWN MED PO SCH (09:15)
[2020-10-25] MEDS ORDERED: Albuterol 6.7 GM Inhaler INH PRN (09:30)
[2020-10-25] MEDS: Sodium Chloride 0.9% 1,000 ML IV SCH (09:31)
[2020-10-25] MEDS: glipiZIDE 5 MG Tab.ER PO SCH (10:28)
[2020-10-25] MEDS: Insulin Lispro 100 Units/ML 3 ML Vial SUBCUT SCH (10:28)
[2020-10-25] MEDS: Insulin Lispro 100 UNIT/ML 10 ML Vial SUBCUT SCH ×4 (10:42→20:59)
[2020-10-25] MEDS: GLIPIZIDE 5 MG PO SCH ×2 (10:43→17:52)
[2020-10-25] MEDS ORDERED: JANUVIA 100 MG PO SCH (10:45)
[2020-10-25] MEDS: TIOTROPIUM 18 MCG INH SCH (11:31)
--- NOTE | 2020-10-25 14:31 | PCM.PN ---
- General Info Date of Service: 10/25/20 Admission Dx/Problem (Free Text): Admission Diagnosis/Problem Admission Diagnosis/Problem Weakness Subjective Update: Patient is an 80-year-old male with a history of diabetes and high blood pressure who was brought to the ER due to fever, generalized weakness and diarrhea. Patient is a poor historian. Patient feels better but he still has left upper teeth pain. Denies headache, dizziness, nausea or vomiting. Afebrile He is on room air WBC went down to normal 5.72 which was 9.87 yesterday. Platelets 124 Potassium 3.1 Blood culture showed gram-positive cocci - Review of Systems Systems Review Comment:: General: Reports: Fever, Weakness HEENT: Teeth pain Pulmonary: Reports: No Symptoms Cardiovascular: Reports: No Symptoms Gastrointestinal: Reports: Diarrhea Genitourinary: Reports: Frequency Musculoskeletal: Reports: No Symptoms Skin: Reports: No Symptoms Psychiatric: Reports: No Symptoms Neurological: Reports: No Symptoms Hematologic/Lymphatic: Reports: No Symptoms Immunologic: Reports: No Symptoms - Patient Data Vitals - Most Recent: Last Vital Signs Temp 36.7 C 10/25/20 11:25 Pulse 69 10/25/20 11:25 Resp 14 10/25/20 11:25 BP 126/71 10/25/20 11:25 Pulse Ox 96 10/25/20 11:34 Weight - Most Recent: 74.344 kg I&O - Last 24 Hours: Intake & Output 10/24/20 10/25/20 10/25/20 22:59 06:59 14:59 Intake Total 1000 637 Output Total 1100 Balance 1000 -463 Lab Results Last 24 Hours: Laboratory Results - last 24 hr 10/24/20 10/24/20 10/24/20 Range/Units 14:22 14:22 14:22 WBC 9.87 H (4.23-9.07) K/mm3 RBC 4.87 (4.63-6.08) M/mm3 Hgb 15.1 D (13.7-17.5) gm/dl Hct 44.2 (40.1-51.0) % MCV 90.8 D (79.0-92.2) fl MCH 31.0 (25.7-32.2) pg MCHC 34.2 (32.2-35.5) g/dl RDW Std Deviation 48.3 H (35.1-43.9) fL Plt Count 146 L (163-337) K/mm3 MPV 10.4 (9.4-12.3) fl Neut % (Auto) (34.0-67.9) % Lymph % (Auto) (21.8-53.1) % [place] % (Auto) (5.3-12.2) % Eos % (Auto) (0.8-7.0) Baso % (Auto) (0.1-1.2) % Neut # (Auto) (1.78-5.38) K/mm3 Lymph # (Auto) (1.32-3.57) K/mm3 [place] # (Auto) (0.30-0.82) K/mm3 Eos # (Auto) (0.04-0.54) K/mm3 Baso # (Auto) (0.01-0.08) K/mm3 Neutrophils % (Manual) 85 H (40-60) % Band Neutrophils % 1 (0-10) % Lymphocytes % (Manual) 10 L (20-40) % Atypical Lymphs % 0 % Monocytes % (Manual) 4 (2-10) % Eosinophils % (Manual) 0 L (0.8-7.0) % Basophils % (Manual) 0 L (0.2-1.2) Platelet Estimate Decreased Plt Morphology Comment See note RBC Morph Comment Normal PT 11.9 (9.7-12.0) SECONDS INR 1.11 Sodium (136-145) mEq/L Potassium (3.5-5.1) mEq/L Chloride (98-107) mEq/L Carbon Dioxide (21-32) mEq/L Anion Gap (5-15) BUN (7-18) mg/dL Creatinine (0.7-1.3) mg/dL Est Cr Clr Drug Dosing mL/min Estimated GFR (MDRD) (>60) mL/min BUN/Creatinine Ratio (14-18) Glucose (83-115) mg/dL POC Glucose (70-99) mg/dL Lactic Acid (0.4-2.0) mmol/L Calcium (8.5-10.1) mg/dL Magnesium (1.8-2.4) mg/dl Total Bilirubin (0.2-1.0) mg/dL AST (15-37) U/L ALT (16-63) U/L Alkaline Phosphatase (46-116) U/L Troponin I (0.00-0.056) ng/mL C-Reactive Protein (<1.0) mg/dL Total Protein (6.4-8.2) g/dl Albumin (3.4-5.0) g/dl Globulin gm/dL Albumin/Globulin Ratio (1-2) Urine Color Yellow (Yellow) Urine Appearance Clear (Clear) Urine pH 7.0 (5.0-8.0) Ur Specific [place] 1.025 (1.005-1.030) Urine Protein 2+ H (Negative) Urine Glucose (UA) 1+ H (Negative) Urine Ketones Negative (Negative) Urine Occult Blood 1+ H (Negative) Urine Nitrite Negative (Negative) Urine Bilirubin Negative (Negative) Urine Urobilinogen 0.2 (0.2-1.0) Ur Leukocyte Esterase Negative (Negative) Urine RBC 10-20 H (0-5) /hpf Urine WBC 0-5 (0-5) /hpf Ur Squamous Epith Cells 0-5 (0-5) /hpf Urine Bacteria Occasional (FEW) /hpf Urine Mucus Not seen (FEW) /hpf Influenza Type A RNA (NEGATIVE) Influenza Type B RNA (NEGATIVE) SARS-CoV-2 RNA (EMMA) (NEGATIVE) MRSA (PCR) 10/24/20 10/24/20 10/24/20 Range/Units 14:22 14:22 14:22 WBC (4.23-9.07) K/mm3 RBC (4.63-6.08) M/mm3 Hgb (13.7-17.5) gm/dl Hct (40.1-51.0) % MCV (79.0-92.2) fl MCH (25.7-32.2) pg MCHC (32.2-35.5) g/dl RDW Std Deviation (35.1-43.9) fL Plt Count (163-337) K/mm3 MPV (9.4-12.3) fl Neut % (Auto) (34.0-67.9) % Lymph % (Auto) (21.8-53.1) % [place] % (Auto) (5.3-12.2) % Eos % (Auto) (0.8-7.0) Baso % (Auto) (0.1-1.2) % Neut # (Auto) (1.78-5.38) K/mm3 Lymph # (Auto) (1.32-3.57) K/mm3 [place] # (Auto) (0.30-0.82) K/mm3 Eos # (Auto) (0.04-0.54) K/mm3 Baso # (Auto) (0.01-0.08) K/mm3 Neutrophils % (Manual) (40-60) % Band Neutrophils % (0-10) % Lymphocytes % (Manual) (20-40) % Atypical Lymphs % % Monocytes % (Manual) (2-10) % Eosinophils % (Manual) (0.8-7.0) % Basophils % (Manual) (0.2-1.2) Platelet Estimate Plt Morphology Comment RBC Morph Comment PT (9.7-12.0) SECONDS INR Sodium 138 (136-145) mEq/L Potassium 3.4 L (3.5-5.1) mEq/L Chloride 100 (98-107) mEq/L Carbon Dioxide 26 (21-32) mEq/L Anion Gap 15.4 H (5-15) BUN 12 (7-18) mg/dL Creatinine 1.2 (0.7-1.3) mg/dL Est Cr Clr Drug Dosing 45.14 mL/min Estimated GFR (MDRD) 58 (>60) mL/min BUN/Creatinine Ratio 10.0 L (14-18) Glucose 240 H (83-115) mg/dL POC Glucose (70-99) mg/dL Lactic Acid (0.4-2.0) mmol/L Calcium 9.2 (8.5-10.1) mg/dL Magnesium 1.8 (1.8-2.4) mg/dl Total Bilirubin 0.7 (0.2-1.0) mg/dL AST 21 (15-37) U/L ALT 25 (16-63) U/L Alkaline Phosphatase 70 (46-116) U/L Troponin I 0.023 (0.00-0.056) ng/mL C-Reactive Protein 8.4 H* (<1.0) mg/dL Total Protein 8.1 (6.4-8.2) g/dl Albumin 3.9 (3.4-5.0) g/dl Globulin 4.2 gm/dL Albumin/Globulin Ratio 0.9 L (1-2) Urine Color (Yellow) Urine Appearance (Clear) Urine pH (5.0-8.0) Ur Specific [place] (1.005-1.030) Urine Protein (Negative) Urine Glucose (UA) (Negative) Urine Ketones (Negative) Urine Occult Blood (Negative) Urine Nitrite (Negative) Urine Bilirubin (Negative) Urine Urobilinogen (0.2-1.0) Ur Leukocyte Esterase (Negative) Urine RBC (0-5) /hpf Urine WBC (0-5) /hpf Ur Squamous Epith Cells (0-5) /hpf Urine Bacteria (FEW) /hpf Urine Mucus (FEW) /hpf Influenza Type A RNA (NEGATIVE) Influenza Type B RNA (NEGATIVE) SARS-CoV-2 RNA (EMMA) (NEGATIVE) MRSA (PCR) 10/24/20 10/24/20 10/24/20 Range/Units 15:33 16:25 18:38 WBC (4.23-9.07) K/mm3 RBC (4.63-6.08) M/mm3 Hgb (13.7-17.5) gm/dl Hct (40.1-51.0) % MCV (79.0-92.2) fl MCH (25.7-32.2) pg MCHC (32.2-35.5) g/dl RDW Std Deviation (35.1-43.9) fL Plt Count (163-337) K/mm3 MPV (9.4-12.3) fl Neut % (Auto) (34.0-67.9) % Lymph % (Auto) (21.8-53.1) % [place] % (Auto) (5.3-12.2) % Eos % (Auto) (0.8-7.0) Baso % (Auto) (0.1-1.2) % Neut # (Auto) (1.78-5.38) K/mm3 Lymph # (Auto) (1.32-3.57) K/mm3 [place] # (Auto) (0.30-0.82) K/mm3 Eos # (Auto) (0.04-0.54) K/mm3 Baso # (Auto) (0.01-0.08) K/mm3 Neutrophils % (Manual) (40-60) % Band Neutrophils % (0-10) % Lymphocytes % (Manual) (20-40) % Atypical Lymphs % % Monocytes % (Manual) (2-10) % Eosinophils % (Manual) (0.8-7.0) % Basophils % (Manual) (0.2-1.2) Platelet Estimate Plt Morphology Comment RBC Morph Comment PT (9.7-12.0) SECONDS INR Sodium (136-145) mEq/L Potassium (3.5-5.1) mEq/L Chloride (98-107) mEq/L Carbon Dioxide (21-32) mEq/L Anion Gap (5-15) BUN (7-18) mg/dL Creatinine (0.7-1.3) mg/dL Est Cr Clr Drug Dosing mL/min Estimated GFR (MDRD) (>60) mL/min BUN/Creatinine Ratio (14-18) Glucose (83-115) mg/dL POC Glucose (70-99) mg/dL Lactic Acid 1.9 (0.4-2.0) mmol/L Calcium (8.5-10.1) mg/dL Magnesium 1.7 L (1.8-2.4) mg/dl Total Bilirubin (0.2-1.0) mg/dL AST (15-37) U/L ALT (16-63) U/L Alkaline Phosphatase (46-116) U/L Troponin I 0.052 (0.00-0.056) ng/mL C-Reactive Protein (<1.0) mg/dL Total Protein (6.4-8.2) g/dl Albumin (3.4-5.0) g/dl Globulin gm/dL Albumin/Globulin Ratio (1-2) Urine Color (Yellow) Urine Appearance (Clear) Urine pH (5.0-8.0) Ur Specific [place] (1.005-1.030) Urine Protein (Negative) Urine Glucose (UA) (Negative) Urine Ketones (Negative) Urine Occult Blood (Negative) Urine Nitrite (Negative) Urine Bilirubin (Negative) Urine Urobilinogen (0.2-1.0) Ur Leukocyte Esterase (Negative) Urine RBC (0-5) /hpf Urine WBC (0-5) /hpf Ur Squamous Epith Cells (0-5) /hpf Urine Bacteria (FEW) /hpf Urine Mucus (FEW) /hpf Influenza Type A RNA Negative (NEGATIVE) Influenza Type B RNA Negative (NEGATIVE) SARS-CoV-2 RNA (EMMA) Negative (NEGATIVE) MRSA (PCR) 10/24/20 10/24/20 10/25/20 Range/Units 21:17 22:47 04:39 WBC 5.72 (4.23-9.07) K/mm3 RBC 4.52 L (4.63-6.08) M/mm3 Hgb 13.6 L D (13.7-17.5) gm/dl Hct 40.9 (40.1-51.0) % MCV 90.5 (79.0-92.2) fl MCH 30.1 (25.7-32.2) pg MCHC 33.3 (32.2-35.5) g/dl RDW Std Deviation 49.3 H (35.1-43.9) fL Plt Count 124 L (163-337) K/mm3 MPV 10.4 (9.4-12.3) fl Neut % (Auto) 80.1 H (34.0-67.9) % Lymph % (Auto) 11.4 L (21.8-53.1) % [place] % (Auto) 8.0 (5.3-12.2) % Eos % (Auto) 0 L (0.8-7.0) Baso % (Auto) 0.3 (0.1-1.2) % Neut # (Auto) 4.58 (1.78-5.38) K/mm3 Lymph # (Auto) 0.65 L (1.32-3.57) K/mm3 [place] # (Auto) 0.46 (0.30-0.82) K/mm3 Eos # (Auto) 0.00 L (0.04-0.54) K/mm3 Baso # (Auto) 0.02 (0.01-0.08) K/mm3 Neutrophils % (Manual) (40-60) % Band Neutrophils % (0-10) % Lymphocytes % (Manual) (20-40) % Atypical Lymphs % % Monocytes % (Manual) (2-10) % Eosinophils % (Manual) (0.8-7.0) % Basophils % (Manual) (0.2-1.2) Platelet Estimate Plt Morphology Comment RBC Morph Comment PT (9.7-12.0) SECONDS INR Sodium (136-145) mEq/L Potassium (3.5-5.1) mEq/L Chloride (98-107) mEq/L Carbon Dioxide (21-32) mEq/L Anion Gap (5-15) BUN (7-18) mg/dL Creatinine (0.7-1.3) mg/dL Est Cr Clr Drug Dosing mL/min Estimated GFR (MDRD) (>60) mL/min BUN/Creatinine Ratio (14-18) Glucose (83-115) mg/dL POC Glucose 109 H (70-99) mg/dL Lactic Acid (0.4-2.0) mmol/L Calcium (8.5-10.1) mg/dL Magnesium (1.8-2.4) mg/dl Total Bilirubin (0.2-1.0) mg/dL AST (15-37) U/L ALT (16-63) U/L Alkaline Phosphatase (46-116) U/L Troponin I (0.00-0.056) ng/mL C-Reactive Protein (<1.0) mg/dL Total Protein (6.4-8.2) g/dl Albumin (3.4-5.0) g/dl Globulin gm/dL Albumin/Globulin Ratio (1-2) Urine Color (Yellow) Urine Appearance (Clear) Urine pH (5.0-8.0) Ur Specific [place] (1.005-1.030) Urine Protein (Negative) Urine Glucose (UA) (Negative) Urine Ketones (Negative) Urine Occult Blood (Negative) Urine Nitrite (Negative) Urine Bilirubin (Negative) Urine Urobilinogen (0.2-1.0) Ur Leukocyte Esterase (Negative) Urine RBC (0-5) /hpf Urine WBC (0-5) /hpf Ur Squamous Epith Cells (0-5) /hpf Urine Bacteria (FEW) /hpf Urine Mucus (FEW) /hpf Influenza Type A RNA (NEGATIVE) Influenza Type B RNA (NEGATIVE) SARS-CoV-2 RNA (EMMA) (NEGATIVE) MRSA (PCR) Negative 10/25/20 10/25/20 10/25/20 Range/Units 04:39 05:39 11:29 WBC (4.23-9.07) K/mm3 RBC (4.63-6.08) M/mm3 Hgb (13.7-17.5) gm/dl Hct (40.1-51.0) % MCV (79.0-92.2) fl MCH (25.7-32.2) pg MCHC (32.2-35.5) g/dl RDW Std Deviation (35.1-43.9) fL Plt Count (163-337) K/mm3 MPV (9.4-12.3) fl Neut % (Auto) (34.0-67.9) % Lymph % (Auto) (21.8-53.1) % [place] % (Auto) (5.3-12.2) % Eos % (Auto) (0.8-7.0) Baso % (Auto) (0.1-1.2) % Neut # (Auto) (1.78-5.38) K/mm3 Lymph # (Auto) (1.32-3.57) K/mm3 [place] # (Auto) (0.30-0.82) K/mm3 Eos # (Auto) (0.04-0.54) K/mm3 Baso # (Auto) (0.01-0.08) K/mm3 Neutrophils % (Manual) (40-60) % Band Neutrophils % (0-10) % Lymphocytes % (Manual) (20-40) % Atypical Lymphs % % Monocytes % (Manual) (2-10) % Eosinophils % (Manual) (0.8-7.0) % Basophils % (Manual) (0.2-1.2) Platelet Estimate Plt Morphology Comment RBC Morph Comment PT (9.7-12.0) SECONDS INR Sodium 138 (136-145) mEq/L Potassium 3.1 L (3.5-5.1) mEq/L Chloride 101 (98-107) mEq/L Carbon Dioxide 26 (21-32) mEq/L Anion Gap 14.1 (5-15) BUN 12 (7-18) mg/dL Creatinine 1.0 (0.7-1.3) mg/dL Est Cr Clr Drug Dosing 54.17 mL/min Estimated GFR (MDRD) > 60 (>60) mL/min BUN/Creatinine Ratio 12.0 L (14-18) Glucose 164 H (83-115) mg/dL POC Glucose 158 H 149 H (70-99) mg/dL Lactic Acid (0.4-2.0) mmol/L Calcium 8.2 L (8.5-10.1) mg/dL Magnesium (1.8-2.4) mg/dl Total Bilirubin 0.8 (0.2-1.0) mg/dL AST 24 (15-37) U/L ALT 26 (16-63) U/L Alkaline Phosphatase 62 (46-116) U/L Troponin I (0.00-0.056) ng/mL C-Reactive Protein (<1.0) mg/dL Total Protein 7.0 (6.4-8.2) g/dl Albumin 3.3 L (3.4-5.0) g/dl Globulin 3.7 gm/dL Albumin/Globulin Ratio 0.9 L (1-2) Urine Color (Yellow) Urine Appearance (Clear) Urine pH (5.0-8.0) Ur Specific [place] (1.005-1.030) Urine Protein (Negative) Urine Glucose (UA) (Negative) Urine Ketones (Negative) Urine Occult Blood (Negative) Urine Nitrite (Negative) Urine Bilirubin (Negative) Urine Urobilinogen (0.2-1.0) Ur Leukocyte Esterase (Negative) Urine RBC (0-5) /hpf Urine WBC (0-5) /hpf Ur Squamous Epith Cells (0-5) /hpf Urine Bacteria (FEW) /hpf Urine Mucus (FEW) /hpf Influenza Type A RNA (NEGATIVE) Influenza Type B RNA (NEGATIVE) SARS-CoV-2 RNA (EMMA) (NEGATIVE) MRSA (PCR) Kaden Results Last 24 Hours: Microbiology 10/24/20 15:25 Anaerobic Blood Culture - Preliminary Blood - Venous - Lab Draw Gram Positive Cocci Med Orders - Current: Current Medications Acetaminophen (Acetaminophen 650 Mg Supp) 650 mg RECTAL Q6H PRN PRN Reason: Pain (mild 1-3) Albuterol (Albuterol 6.7 Gm Inhaler) 0 gm INH Q4H PRN PRN Reason: Shortness of Breath Albuterol/Ipratropium (Albuterol/Ipratropium 3.0-0.5 Mg/3 Ml Neb Soln) 3 ml NEB Q4H PRN PRN Reason: Shortness Of Breath/wheezing Apixaban (Apixaban 5 Mg Tab Own Med) 5 mg PO BID TANIA Last Admin: 10/25/20 09:09 Dose: 5 mg Documented by: Aspirin (Aspirin 81 Mg Tab.Ec Own Med) 81 mg PO DAILY [facility] Last Admin: 10/25/20 09:20 Dose: 81 mg Documented by: Ezetimibe (Ezetimibe 10 Mg Tab Own Med) 10 mg PO DAILY [facility] Finasteride (Finasteride 5 Mg Tab Own Med) 5 mg PO DAILY [facility] Last Admin: 10/25/20 09:13 Dose: 5 mg Documented by: Glipizide (Glipizide 5 Mg Tab Own Med) 5 mg PO BIDMEALS [facility] Last Admin: 10/25/20 10:43 Dose: 5 mg Documented by: Hydralazine HCl (Hydralazine 20 Mg/Ml Sdv) 10 mg IVPUSH Q4H PRN PRN Reason: Hypertension Sodium Chloride (Normal Saline) 1,000 mls @ 75 mls/hr IV ASDIRECTED [facility] Last Admin: 10/25/20 09:31 Dose: 75 mls/hr Documented by: Promethazine HCl 12.5 mg/ (Sodium Chloride) 50.5 mls @ 100 mls/hr IV Q6H PRN PRN Reason: Nausea/Vomiting Piperacillin Sod/Tazobactam (Sod 4.5 gm/ Sodium Chloride) 100 mls @ 25 mls/hr IV Q8H [facility] Last Admin: 10/25/20 09:33 Dose: 25 mls/hr Documented by: Vancomycin HCl 1 gm/ Sodium (Chloride) 250 mls @ 250 mls/hr IV Q12H [facility] Insulin Human Lispro (Insulin Lispro 100 Unit/Ml) 0 unit SUBCUT QIDACANDBED [facility]; Protocol Last Admin: 10/25/20 12:13 Dose: Not Given Documented by: Losartan Potassium (Losartan 25 Mg Tab Ptom) 0 mg PO DAILY [facility] Last Admin: 10/25/20 10:22 Dose: Not Given Documented by: Melatonin (Melatonin 3 Mg Tab) 9 mg PO QPM [facility] Metoprolol Succinate (Metoprolol Succinate 50 Mg Tab.Er Own Med) 50 mg PO DAILY [facility] Last Admin: 10/25/20 09:18 Dose: 50 mg Documented by: Morphine Sulfate (Morphine 2 Mg/Ml Syringe) 2 mg IVPUSH Q4H PRN PRN Reason: Pain (severe 7-10) Stop: 10/25/20 18:16 Lumigan (Bimatoprost () Oph *Own Med) 1 drop EYEBOTH QPM [facility] Tiotropium (Spiriva) 18 Mcg Inhaler * Own Med 0 inh INH DAILY [facility] Last Admin: 10/25/20 11:31 Dose: 1 inh Documented by: Miryam (Sitagliptan () 100mg Own Med) 0 each PO DAILY [facility] Last Admin: 10/25/20 10:43 Dose: 1 each Documented by: Pravastatin Sodium (Pravastatin 20 Mg Tab Own Med) 20 mg PO BID [facility] Last Admin: 10/25/20 09:13 Dose: 20 mg Documented by: Sodium Chloride (Sodium Chloride 0.9% 10 Ml Syringe) 10 ml FLUSH ASDIRECTED PRN PRN Reason: Keep Vein Open Last Admin: 10/24/20 14:52 Dose: 10 ml Documented by: Tamsulosin HCl (Tamsulosin 0.4 Mg Cap.Er Own Med) 0.4 mg PO QPM [facility] Vancomycin HCl (Pharmacy To Dose - Vancomycin) 1 dose .XX ASDIRECTED [facility] Discontinued Medications Acetaminophen (Acetaminophen 325 Mg Tab) 650 mg PO NOW ONE Stop: 10/24/20 14:48 Last Admin: 10/24/20 14:51 Dose: 650 mg Documented by: Albuterol (Albuterol 6.7 Gm Inhaler) 0 gm INH Q4HR PRN PRN Reason: Shortness of Breath Apixaban (Apixaban 5 Mg Tab) 5 mg PO BID [facility] Last Admin: 10/24/20 23:00 Dose: Not Given Documented by: Aspirin (Aspirin 81 Mg Tab.Ec) 81 mg PO DAILY [facility] Last Admin: 10/25/20 10:28 Dose: Not Given Documented by: Enoxaparin Sodium (Enoxaparin 40 Mg/0.4 Ml Syringe) 40 mg SUBCUT DAILY [facility] Last Admin: 10/24/20 23:00 Dose: Not Given Documented by: Glipizide (Glipizide 5 Mg Tab.Er) 5 mg PO BID [facility] Last Admin: 10/25/20 10:28 Dose: Not Given Documented by: Sodium Chloride (Normal Saline) 1,000 mls @ 999 mls/hr IV BOLUS ONE; Protocol Stop: 10/24/20 15:34 Last Admin: 10/24/20 14:52 Dose: 999 mls/hr Documented by: Piperacillin Sod/Tazobactam (Sod 4.5 gm/ Sodium Chloride) 100 mls @ 200 mls/hr IV ONETIME ONE Stop: 10/24/20 17:58 Last Admin: 10/24/20 17:43 Dose: 200 mls/hr Documented by: Sodium Chloride (Normal Saline) 1,000 mls @ 500 mls/hr IV ONETIME ONE Stop: 10/24/20 19:28 Last Admin: 10/24/20 17:43 Dose: 500 mls/hr Documented by: Insulin Human Lispro (Insulin Lispro 100 Units/Ml 3 Ml Vial) 0 unit SUBCUT QIDACANDBED [facility]; Protocol Last Admin: 10/25/20 10:28 Dose: Not Given Documented by: Ketorolac Tromethamine (Ketorolac 30 Mg/Ml Sdv) 30 mg IVPUSH ONETIME ONE Stop: 10/24/20 16:13 Last Admin: 10/24/20 16:19 Dose: 30 mg Documented by: Losartan Potassium (Losartan 25 Mg Tab) 12.5 mg PO DAILY [facility] Last Admin: 10/25/20 09:14 Dose: 12.5 mg Documented by: Non-Formulary Medication (Pravastatin) 40 mg PO DAILY [facility] Potassium Chloride (Potassium Chloride 20 Meq Tab.Er) 40 meq PO ONETIME ONE Stop: 10/24/20 19:06 Last Admin: 10/24/20 20:05 Dose: 40 meq Documented by: Potassium Chloride (Potassium Chloride 10 Meq Cap Own Med) 0 meq PO ONETIME ONE Stop: 10/25/20 09:01 Last Admin: 10/25/20 09:11 Dose: 40 meq Documented by: - Exam General: Alert, Oriented, Cooperative HEENT: Pupils Equal, Pupils Reactive, EOMI, Other (Erythema and mild tenderness over the right eyelids and cheek) Neck: Supple, Trachea Midline, No JVD Lungs: Clear to Auscultation, Normal Respiratory Effort Cardiovascular: Irregular Rhythm GI/Abdominal Exam: Normal Bowel Sounds, Soft, Non-Tender, No Organomegaly Extremities: Normal Inspection, Normal Range of Motion, Non-Tender, No Pedal Edema Skin: Warm, Dry, Intact Neurological: Normal Speech, Normal Tone, Strength Equal Bilateral, Reflexes Equal Bilateral, Sensation Intact Psy/Mental Status: Alert, Normal Affect, Normal Mood - Patient Data Lab Results Last 24 hrs: Laboratory Results - last 24 hr 10/24/20 10/24/20 10/24/20 Range/Units 14:22 14:22 14:22 WBC 9.87 H (4.23-9.07) K/mm3 RBC 4.87 (4.63-6.08) M/mm3 Hgb 15.1 D (13.7-17.5) gm/dl Hct 44.2 (40.1-51.0) % MCV 90.8 D (79.0-92.2) fl MCH 31.0 (25.7-32.2) pg MCHC 34.2 (32.2-35.5) g/dl RDW Std Deviation 48.3 H (35.1-43.9) fL Plt Count 146 L (163-337) K/mm3 MPV 10.4 (9.4-12.3) fl Neut % (Auto) (34.0-67.9) % Lymph % (Auto) (21.8-53.1) % [place] % (Auto) (5.3-12.2) % Eos % (Auto) (0.8-7.0) Baso % (Auto) (0.1-1.2) % Neut # (Auto) (1.78-5.38) K/mm3 Lymph # (Auto) (1.32-3.57) K/mm3 [place] # (Auto) (0.30-0.82) K/mm3 Eos # (Auto) (0.04-0.54) K/mm3 Baso # (Auto) (0.01-0.08) K/mm3 Neutrophils % (Manual) 85 H (40-60) % Band Neutrophils % 1 (0-10) % Lymphocytes % (Manual) 10 L (20-40) % Atypical Lymphs % 0 % Monocytes % (Manual) 4 (2-10) % Eosinophils % (Manual) 0 L (0.8-7.0) % Basophils % (Manual) 0 L (0.2-1.2) Platelet Estimate Decreased Plt Morphology Comment See note RBC Morph Comment Normal PT 11.9 (9.7-12.0) SECONDS INR 1.11 Sodium (136-145) mEq/L Potassium (3.5-5.1) mEq/L Chloride (98-107) mEq/L Carbon Dioxide (21-32) mEq/L Anion Gap (5-15) BUN (7-18) mg/dL Creatinine (0.7-1.3) mg/dL Est Cr Clr Drug Dosing mL/min Estimated GFR (MDRD) (>60) mL/min BUN/Creatinine Ratio (14-18) Glucose (83-115) mg/dL POC Glucose (70-99) mg/dL Lactic Acid (0.4-2.0) mmol/L Calcium (8.5-10.1) mg/dL Magnesium (1.8-2.4) mg/dl Total Bilirubin (0.2-1.0) mg/dL AST (15-37) U/L ALT (16-63) U/L Alkaline Phosphatase (46-116) U/L Troponin I (0.00-0.056) ng/mL C-Reactive Protein (<1.0) mg/dL Total Protein (6.4-8.2) g/dl Albumin (3.4-5.0) g/dl Globulin gm/dL Albumin/Globulin Ratio (1-2) Urine Color Yellow (Yellow) Urine Appearance Clear (Clear) Urine pH 7.0 (5.0-8.0) Ur Specific [place] 1.025 (1.005-1.030) Urine Protein 2+ H (Negative) Urine Glucose (UA) 1+ H (Negative) Urine Ketones Negative (Negative) Urine Occult Blood 1+ H (Negative) Urine Nitrite Negative (Negative) Urine Bilirubin Negative (Negative) Urine Urobilinogen 0.2 (0.2-1.0) Ur Leukocyte Esterase Negative (Negative) Urine RBC 10-20 H (0-5) /hpf Urine WBC 0-5 (0-5) /hpf Ur Squamous Epith Cells 0-5 (0-5) /hpf Urine Bacteria Occasional (FEW) /hpf Urine Mucus Not seen (FEW) /hpf Influenza Type A RNA (NEGATIVE) Influenza Type B RNA (NEGATIVE) SARS-CoV-2 RNA (EMMA) (NEGATIVE) MRSA (PCR) 10/24/20 10/24/20 10/24/20 Range/Units 14:22 14:22 14:22 WBC (4.23-9.07) K/mm3 RBC (4.63-6.08) M/mm3 Hgb (13.7-17.5) gm/dl Hct (40.1-51.0) % MCV (79.0-92.2) fl MCH (25.7-32.2) pg MCHC (32.2-35.5) g/dl RDW Std Deviation (35.1-43.9) fL Plt Count (163-337) K/mm3 MPV (9.4-12.3) fl Neut % (Auto) (34.0-67.9) % Lymph % (Auto) (21.8-53.1) % [place] % (Auto) (5.3-12.2) % Eos % (Auto) (0.8-7.0) Baso % (Auto) (0.1-1.2) % Neut # (Auto) (1.78-5.38) K/mm3 Lymph # (Auto) (1.32-3.57) K/mm3 [place] # (Auto) (0.30-0.82) K/mm3 Eos # (Auto) (0.04-0.54) K/mm3 Baso # (Auto) (0.01-0.08) K/mm3 Neutrophils % (Manual) (40-60) % Band Neutrophils % (0-10) % Lymphocytes % (Manual) (20-40) % Atypical Lymphs % % Monocytes % (Manual) (2-10) % Eosinophils % (Manual) (0.8-7.0) % Basophils % (Manual) (0.2-1.2) Platelet Estimate Plt Morphology Comment RBC Morph Comment PT (9.7-12.0) SECONDS INR Sodium 138 (136-145) mEq/L Potassium 3.4 L (3.5-5.1) mEq/L Chloride 100 (98-107) mEq/L Carbon Dioxide 26 (21-32) mEq/L Anion Gap 15.4 H (5-15) BUN 12 (7-18) mg/dL Creatinine 1.2 (0.7-1.3) mg/dL Est Cr Clr Drug Dosing 45.14 mL/min Estimated GFR (MDRD) 58 (>60) mL/min BUN/Creatinine Ratio 10.0 L (14-18) Glucose 240 H (83-115) mg/dL POC Glucose (70-99) mg/dL Lactic Acid (0.4-2.0) mmol/L Calcium 9.2 (8.5-10.1) mg/dL Magnesium 1.8 (1.8-2.4) mg/dl Total Bilirubin 0.7 (0.2-1.0) mg/dL AST 21 (15-37) U/L ALT 25 (16-63) U/L Alkaline Phosphatase 70 (46-116) U/L Troponin I 0.023 (0.00-0.056) ng/mL C-Reactive Protein 8.4 H* (<1.0) mg/dL Total Protein 8.1 (6.4-8.2) g/dl Albumin 3.9 (3.4-5.0) g/dl Globulin 4.2 gm/dL Albumin/Globulin Ratio 0.9 L (1-2) Urine Color (Yellow) Urine Appearance (Clear) Urine pH (5.0-8.0) Ur Specific [place] (1.005-1.030) Urine Protein (Negative) Urine Glucose (UA) (Negative) Urine Ketones (Negative) Urine Occult Blood (Negative) Urine Nitrite (Negative) Urine Bilirubin (Negative) Urine Urobilinogen (0.2-1.0) Ur Leukocyte Esterase (Negative) Urine RBC (0-5) /hpf Urine WBC (0-5) /hpf Ur Squamous Epith Cells (0-5) /hpf Urine Bacteria (FEW) /hpf Urine Mucus (FEW) /hpf Influenza Type A RNA (NEGATIVE) Influenza Type B RNA (NEGATIVE) SARS-CoV-2 RNA (EMMA) (NEGATIVE) MRSA (PCR) 10/24/20 10/24/20 10/24/20 Range/Units 15:33 16:25 18:38 WBC (4.23-9.07) K/mm3 RBC (4.63-6.08) M/mm3 Hgb (13.7-17.5) gm/dl Hct (40.1-51.0) % MCV (79.0-92.2) fl MCH (25.7-32.2) pg MCHC (32.2-35.5) g/dl RDW Std Deviation (35.1-43.9) fL Plt Count (163-337) K/mm3 MPV (9.4-12.3) fl Neut % (Auto) (34.0-67.9) % Lymph % (Auto) (21.8-53.1) % [place] % (Auto) (5.3-12.2) % Eos % (Auto) (0.8-7.0) Baso % (Auto) (0.1-1.2) % Neut # (Auto) (1.78-5.38) K/mm3 Lymph # (Auto) (1.32-3.57) K/mm3 [place] # (Auto) (0.30-0.82) K/mm3 Eos # (Auto) (0.04-0.54) K/mm3 Baso # (Auto) (0.01-0.08) K/mm3 Neutrophils % (Manual) (40-60) % Band Neutrophils % (0-10) % Lymphocytes % (Manual) (20-40) % Atypical Lymphs % % Monocytes % (Manual) (2-10) % Eosinophils % (Manual) (0.8-7.0) % Basophils % (Manual) (0.2-1.2) Platelet Estimate Plt Morphology Comment RBC Morph Comment PT (9.7-12.0) SECONDS INR Sodium (136-145) mEq/L Potassium (3.5-5.1) mEq/L Chloride (98-107) mEq/L Carbon Dioxide (21-32) mEq/L Anion Gap (5-15) BUN (7-18) mg/dL Creatinine (0.7-1.3) mg/dL Est Cr Clr Drug Dosing mL/min Estimated GFR (MDRD) (>60) mL/min BUN/Creatinine Ratio (14-18) Glucose (83-115) mg/dL POC Glucose (70-99) mg/dL Lactic Acid 1.9 (0.4-2.0) mmol/L Calcium (8.5-10.1) mg/dL Magnesium 1.7 L (1.8-2.4) mg/dl Total Bilirubin (0.2-1.0) mg/dL AST (15-37) U/L ALT (16-63) U/L Alkaline Phosphatase (46-116) U/L Troponin I 0.052 (0.00-0.056) ng/mL C-Reactive Protein (<1.0) mg/dL Total Protein (6.4-8.2) g/dl Albumin (3.4-5.0) g/dl Globulin gm/dL Albumin/Globulin Ratio (1-2) Urine Color (Yellow) Urine Appearance (Clear) Urine pH (5.0-8.0) Ur Specific [place] (1.005-1.030) Urine Protein (Negative) Urine Glucose (UA) (Negative) Urine Ketones (Negative) Urine Occult Blood (Negative) Urine Nitrite (Negative) Urine Bilirubin (Negative) Urine Urobilinogen (0.2-1.0) Ur Leukocyte Esterase (Negative) Urine RBC (0-5) /hpf Urine WBC (0-5) /hpf Ur Squamous Epith Cells (0-5) /hpf Urine Bacteria (FEW) /hpf Urine Mucus (FEW) /hpf Influenza Type A RNA Negative (NEGATIVE) Influenza Type B RNA Negative (NEGATIVE) SARS-CoV-2 RNA (EMMA) Negative (NEGATIVE) MRSA (PCR) 10/24/20 10/24/20 10/25/20 Range/Units 21:17 22:47 04:39 WBC 5.72 (4.23-9.07) K/mm3 RBC 4.52 L (4.63-6.08) M/mm3 Hgb 13.6 L D (13.7-17.5) gm/dl Hct 40.9 (40.1-51.0) % MCV 90.5 (79.0-92.2) fl MCH 30.1 (25.7-32.2) pg MCHC 33.3 (32.2-35.5) g/dl RDW Std Deviation 49.3 H (35.1-43.9) fL Plt Count 124 L (163-337) K/mm3 MPV 10.4 (9.4-12.3) fl Neut % (Auto) 80.1 H (34.0-67.9) % Lymph % (Auto) 11.4 L (21.8-53.1) % [place] % (Auto) 8.0 (5.3-12.2) % Eos % (Auto) 0 L (0.8-7.0) Baso % (Auto) 0.3 (0.1-1.2) % Neut # (Auto) 4.58 (1.78-5.38) K/mm3 Lymph # (Auto) 0.65 L (1.32-3.57) K/mm3 [place] # (Auto) 0.46 (0.30-0.82) K/mm3 Eos # (Auto) 0.00 L (0.04-0.54) K/mm3 Baso # (Auto) 0.02 (0.01-0.08) K/mm3 Neutrophils % (Manual) (40-60) % Band Neutrophils % (0-10) % Lymphocytes % (Manual) (20-40) % Atypical Lymphs % % Monocytes % (Manual) (2-10) % Eosinophils % (Manual) (0.8-7.0) % Basophils % (Manual) (0.2-1.2) Platelet Estimate Plt Morphology Comment RBC Morph Comment PT (9.7-12.0) SECONDS INR Sodium (136-145) mEq/L Potassium (3.5-5.1) mEq/L Chloride (98-107) mEq/L Carbon Dioxide (21-32) mEq/L Anion Gap (5-15) BUN (7-18) mg/dL Creatinine (0.7-1.3) mg/dL Est Cr Clr Drug Dosing mL/min Estimated GFR (MDRD) (>60) mL/min BUN/Creatinine Ratio (14-18) Glucose (83-115) mg/dL POC Glucose 109 H (70-99) mg/dL Lactic Acid (0.4-2.0) mmol/L Calcium (8.5-10.1) mg/dL Magnesium (1.8-2.4) mg/dl Total Bilirubin (0.2-1.0) mg/dL AST (15-37) U/L ALT (16-63) U/L Alkaline Phosphatase (46-116) U/L Troponin I (0.00-0.056) ng/mL C-Reactive Protein (<1.0) mg/dL Total Protein (6.4-8.2) g/dl Albumin (3.4-5.0) g/dl Globulin gm/dL Albumin/Globulin Ratio (1-2) Urine Color (Yellow) Urine Appearance (Clear) Urine pH (5.0-8.0) Ur Specific [place] (1.005-1.030) Urine Protein (Negative) Urine Glucose (UA) (Negative) Urine Ketones (Negative) Urine Occult Blood (Negative) Urine Nitrite (Negative) Urine Bilirubin (Negative) Urine Urobilinogen (0.2-1.0) Ur Leukocyte Esterase (Negative) Urine RBC (0-5) /hpf Urine WBC (0-5) /hpf Ur Squamous Epith Cells (0-5) /hpf Urine Bacteria (FEW) /hpf Urine Mucus (FEW) /hpf Influenza Type A RNA (NEGATIVE) Influenza Type B RNA (NEGATIVE) SARS-CoV-2 RNA (EMMA) (NEGATIVE) MRSA (PCR) Negative 10/25/20 10/25/20 10/25/20 Range/Units 04:39 05:39 11:29 WBC (4.23-9.07) K/mm3 RBC (4.63-6.08) M/mm3 Hgb (13.7-17.5) gm/dl Hct (40.1-51.0) % MCV (79.0-92.2) fl MCH (25.7-32.2) pg MCHC (32.2-35.5) g/dl RDW Std Deviation (35.1-43.9) fL Plt Count (163-337) K/mm3 MPV (9.4-12.3) fl Neut % (Auto) (34.0-67.9) % Lymph % (Auto) (21.8-53.1) % [place] % (Auto) (5.3-12.2) % Eos % (Auto) (0.8-7.0) Baso % (Auto) (0.1-1.2) % Neut # (Auto) (1.78-5.38) K/mm3 Lymph # (Auto) (1.32-3.57) K/mm3 [place] # (Auto) (0.30-0.82) K/mm3 Eos # (Auto) (0.04-0.54) K/mm3 Baso # (Auto) (0.01-0.08) K/mm3 Neutrophils % (Manual) (40-60) % Band Neutrophils % (0-10) % Lymphocytes % (Manual) (20-40) % Atypical Lymphs % % Monocytes % (Manual) (2-10) % Eosinophils % (Manual) (0.8-7.0) % Basophils % (Manual) (0.2-1.2) Platelet Estimate Plt Morphology Comment RBC Morph Comment PT (9.7-12.0) SECONDS INR Sodium 138 (136-145) mEq/L Potassium 3.1 L (3.5-5.1) mEq/L Chloride 101 (98-107) mEq/L Carbon Dioxide 26 (21-32) mEq/L Anion Gap 14.1 (5-15) BUN 12 (7-18) mg/dL Creatinine 1.0 (0.7-1.3) mg/dL Est Cr Clr Drug Dosing 54.17 mL/min Estimated GFR (MDRD) > 60 (>60) mL/min BUN/Creatinine Ratio 12.0 L (14-18) Glucose 164 H (83-115) mg/dL POC Glucose 158 H 149 H (70-99) mg/dL Lactic Acid (0.4-2.0) mmol/L Calcium 8.2 L (8.5-10.1) mg/dL Magnesium (1.8-2.4) mg/dl Total Bilirubin 0.8 (0.2-1.0) mg/dL AST 24 (15-37) U/L ALT 26 (16-63) U/L Alkaline Phosphatase 62 (46-116) U/L Troponin I (0.00-0.056) ng/mL C-Reactive Protein (<1.0) mg/dL Total Protein 7.0 (6.4-8.2) g/dl Albumin 3.3 L (3.4-5.0) g/dl Globulin 3.7 gm/dL Albumin/Globulin Ratio 0.9 L (1-2) Urine Color (Yellow) Urine Appearance (Clear) Urine pH (5.0-8.0) Ur Specific [place] (1.005-1.030) Urine Protein (Negative) Urine Glucose (UA) (Negative) Urine Ketones (Negative) Urine Occult Blood (Negative) Urine Nitrite (Negative) Urine Bilirubin (Negative) Urine Urobilinogen (0.2-1.0) Ur Leukocyte Esterase (Negative) Urine RBC (0-5) /hpf Urine WBC (0-5) /hpf Ur Squamous Epith Cells (0-5) /hpf Urine Bacteria (FEW) /hpf Urine Mucus (FEW) /hpf Influenza Type A RNA (NEGATIVE) Influenza Type B RNA (NEGATIVE) SARS-CoV-2 RNA (EMMA) (NEGATIVE) MRSA (PCR) Result Diagrams: 10/25/20 04:39 10/25/20 04:39 Kaden Results Last 24 hrs: Microbiology 10/24/20 15:25 Anaerobic Blood Culture - Preliminary Blood - Venous - Lab Draw Gram Positive Cocci Sepsis Event Note - Evaluation Sepsis Screening Result: No Definite Risk - Focused Exam Vital Signs: Vital Signs Temp Pulse Resp BP Pulse Ox Pulse Ox 10/25/20 11:34 96 10/25/20 11:25 36.7 C 69 14 126/71 96 10/25/20 09:18 80 126/60 10/25/20 09:16 126/60 10/25/20 09:14 126/60 10/25/20 07:45 37.3 C 77 16 140/73 92 L 10/25/20 04:46 36.9 C 86 20 140/87 93 L - Problem List Review Problem List Initiated/Reviewed/Updated: Yes - My Orders Last 24 Hours: My Active Orders 10/24/20 Dinner Consistent Carbohydrate Diet [DIET] 10/24/20 18:13 Bedrest Bedside Commode [RC] ASDIRECTED Oxygen Therapy [RC] PRN VTE/DVT Education [RC] Vital Signs [RC] Q4HR Acetaminophen [Tylenol] 650 mg RECTAL Q6H PRN Albuterol/Ipratropium [DuoNeb 3.0-0.5 MG/3 ML] 3 ml NEB Q4H PRN Morphine 2 mg IVPUSH Q4H PRN Promethazine [Phenergan] 12.5 mg Sodium Chloride 0.9% [Normal Saline] 50 ml IV Q6H Resuscitation Status Routine 10/24/20 18:14 Intake and Output [RC] 04,16 Pulse Oximetry [RC] CONTINUOUS 10/24/20 18:15 Sodium Chloride 0.9% [Normal Saline] 1,000 ml IV ASDIRECTED 10/24/20 18:17 RT Aerosol Therapy [RC] ASDIRECTED 10/24/20 18:21 hydrALAZINE [Apresoline] 10 mg IVPUSH Q4H PRN 10/24/20 22:45 Apixaban [Eliquis] 5 mg PO BID 10/25/20 02:00 Piperacillin/Tazobactam [Piperacil-Tazobact] 4.5 gm Sodium Chloride 0.9% [Normal Saline] 100 ml IV Q8H 10/25/20 09:00 Finasteride [Proscar] 5 mg PO DAILY Insulin Lispro [HumaLOG] 0 unit SUBCUT QIDACANDBED Losartan [Cozaar] 0 mg PO DAILY Metoprolol Succinate [Toprol XL] 50 mg PO DAILY Pravastatin [Pravachol] 20 mg PO BID 10/25/20 09:15 Aspirin [Halfprin] 81 mg PO DAILY 10/25/20 09:30 Albuterol [Proventil HFA] 0 gm INH Q4H PRN 10/25/20 10:45 Patient's Own Medication [Ptom] 0 each PO DAILY Tiotropium 0 inh INH DAILY 10/25/20 11:30 glipiZIDE [Glucotrol] 5 mg PO BIDMEALS 10/25/20 11:48 Head wo Cont [CT] Stat 10/25/20 13:56 Consult to Occupational Therapy [OT Evaluation and Treatment] [CONS] Routine Consult to Physical Therapy [PT Evaluation and Treatment] [CONS] Routine 10/25/20 13:57 Patient Status [ADT] Routine 10/25/20 14:02 Echo 2D wo Cont [US] Routine CULTURE BLOOD [BC] Stat CULTURE BLOOD [BC] Stat Blood Culture x2 Reflex Set [OM.PC] Stat 10/25/20 14:15 Pharmacy to Dose - Vancomycin 1 dose .XX ASDIRECTED 10/25/20 14:30 Vancomycin [Vancocin] 1 gm Sodium Chloride 0.9% [Normal Saline (AdvBag)] 250 ml IV Q12H 10/25/20 18:00 Bimatoprost 1 drop EYEBOTH QPM Melatonin 9 mg PO QPM Tamsulosin [Flomax] 0.4 mg PO QPM 10/26/20 05:00 CBC WITH AUTO DIFF [HEME] DAILY COMPREHENSIVE METABOLIC PN,CMP [CHEM] DAILY 10/26/20 10:45 Ezetimibe [Zetia] 10 mg PO DAILY 10/27/20 05:00 CBC WITH AUTO DIFF [HEME] DAILY COMPREHENSIVE METABOLIC PN,CMP [CHEM] DAILY 10/28/20 05:00 CBC WITH AUTO DIFF [HEME] DAILY COMPREHENSIVE METABOLIC PN,CMP [CHEM] DAILY 10/29/20 05:00 CBC WITH AUTO DIFF [HEME] DAILY COMPREHENSIVE METABOLIC PN,CMP [CHEM] DAILY - Plan Plan:: Patient is an 80-year-old male with a history of diabetes and high blood pressure who was brought to the ER due to fever, generalized weakness and diarrhea. Assessment: Early sepsis 2nd to dental infection, resolved Bacteremia - GPC Dental infection Generalized weakness Diarrhea Dehydration DM type 2 HTN Leukocytosis with left shift Thrombocytosis Hypokalemia Acute urinary retention Plan: 1. Sinew to be observed in telemetry. Card monitor and pulse ox EKG performed on October 25, 2019 at 6: 43: 21 -sinus rhythm: Prolonged OH interval, nonspecific intraventricular conduction delay. Other abnormalities could be missed. 2. Blood culture showed gram-positive cocci from one of the 2 bottles. Repeat blood culture. Echocardiogram. Added vancomycin (pharmacy to dose) Continue Zosyn 3. Had teeth cleaned 3 days ago Teeth pain MRSA screen Zosyn CT of head 4. Diabetic diet. Continue home medication glipizide 5 mg twice daily and Januvia. Metformin is on hold. Insulin sliding scale. Adjust insulin based on sugar levels 5. Continue losartan 12.5 mg daily and metoprolol 50 mg daily. Hydralazine as needed 6. No evidence of bleeding. Repeat platelets in the morning 7. Potassium was given. Repeat electrolytes in the morning 8. Continue home Flomax and finasteride. Cuevas catheter 9. PT OT 10. DVT prophylaxis: Eliquis (do not know why patient is on Eliquis. As per , his vrt mechanic started him on Eliquis 4 months ago. Needs to call PCP or vrt mechanic on Tuesday) 11. CODE STATUS: DNR/DNI
[2020-10-25] MEDS ORDERED: Magnesium Sulfate/Water 4 GM in Premix Bag 0.5 BAG IV ONE (16:50)
[2020-10-25] MEDS ORDERED: Magnesium Sulfate/Water 2 GM/50 ML BAG IV ONE (17:00)
[2020-10-25] MEDS: BIMATOPROST EYEBOTH SCH (17:53)
[2020-10-25] MEDS ORDERED: Tamsulosin 0.4 MG Cap.ER **OWN MED PO SCH (18:00)
[2020-10-25] MEDS ORDERED: Melatonin 3 MG Tab PO SCH (18:00)
[2020-10-25] MEDS: Melatonin 3 MG Tab PO SCH (20:59)
[2020-10-26] MEDS: Piperacillin/Tazobactam 4.5 GM in Sodium Chloride 0.9% 100 ML IV SCH (01:21)
[2020-10-26] MEDS: Sodium Chloride 0.9% 1,000 ML IV SCH ×2 (01:21→15:48)
[2020-10-26] MEDS: GLIPIZIDE 5 MG PO SCH (06:40)
[2020-10-26] MEDS: Insulin Lispro 100 UNIT/ML 10 ML Vial SUBCUT SCH ×4 (06:40→22:16)
--- NOTE | 2020-10-26 08:23 | PCM.PN ---
- General Info Date of Service: 10/26/20 Subjective Update: Overnight no events reported per patient or nursing staff. This morning patient noted on telemetry to have ongoing bradycardia however he has no evidence of hea rt block and is currently asymptomatic. Patient does state that he has had intermittent chills overnight however denies any further complaints. Functional Status: Reports: Pain Controlled - Review of Systems General: Reports: No Symptoms - Patient Data Vitals - Most Recent: Last Vital Signs Temp 99.9 F 10/26/20 03:56 Pulse 58 L 10/26/20 03:56 Resp 20 10/26/20 03:56 BP 115/49 L 10/26/20 03:56 Pulse Ox 95 10/26/20 03:56 Weight - Most Recent: 163 lb 8 oz I&O - Last 24 Hours: Intake & Output 10/25/20 10/26/20 10/26/20 22:59 06:59 14:59 Intake Total 2081 850 Output Total 1150 1375 Balance 931 -525 Lab Results Last 24 Hours: Laboratory Results - last 24 hr 10/25/20 10/25/20 10/25/20 Range/Units 11:29 16:58 20:53 WBC (4.23-9.07) K/mm3 RBC (4.63-6.08) M/mm3 Hgb (13.7-17.5) gm/dl Hct (40.1-51.0) % MCV (79.0-92.2) fl MCH (25.7-32.2) pg MCHC (32.2-35.5) g/dl RDW Std Deviation (35.1-43.9) fL Plt Count (163-337) K/mm3 MPV (9.4-12.3) fl Neut % (Auto) (34.0-67.9) % Lymph % (Auto) (21.8-53.1) % [place] % (Auto) (5.3-12.2) % Eos % (Auto) (0.8-7.0) Baso % (Auto) (0.1-1.2) % Neut # (Auto) (1.78-5.38) K/mm3 Lymph # (Auto) (1.32-3.57) K/mm3 [place] # (Auto) (0.30-0.82) K/mm3 Eos # (Auto) (0.04-0.54) K/mm3 Baso # (Auto) (0.01-0.08) K/mm3 Manual Slide Review Sodium (136-145) mEq/L Potassium (3.5-5.1) mEq/L Chloride (98-107) mEq/L Carbon Dioxide (21-32) mEq/L Anion Gap (5-15) BUN (7-18) mg/dL Creatinine (0.7-1.3) mg/dL Est Cr Clr Drug Dosing mL/min Estimated GFR (MDRD) (>60) mL/min BUN/Creatinine Ratio (14-18) Glucose (83-115) mg/dL POC Glucose 149 H 82 122 H (70-99) mg/dL Calcium (8.5-10.1) mg/dL Magnesium (1.8-2.4) mg/dl Total Bilirubin (0.2-1.0) mg/dL AST (15-37) U/L ALT (16-63) U/L Alkaline Phosphatase (46-116) U/L Total Protein (6.4-8.2) g/dl Albumin (3.4-5.0) g/dl Globulin gm/dL Albumin/Globulin Ratio (1-2) 10/26/20 10/26/20 10/26/20 Range/Units 04:41 04:41 06:38 WBC 5.54 (4.23-9.07) K/mm3 RBC 3.94 L (4.63-6.08) M/mm3 Hgb 12.0 L D (13.7-17.5) gm/dl Hct 36.0 L (40.1-51.0) % MCV 91.4 (79.0-92.2) fl MCH 30.5 (25.7-32.2) pg MCHC 33.3 (32.2-35.5) g/dl RDW Std Deviation 49.5 H (35.1-43.9) fL Plt Count 94 L (163-337) K/mm3 MPV 9.9 (9.4-12.3) fl Neut % (Auto) 66.2 (34.0-67.9) % Lymph % (Auto) 18.1 L (21.8-53.1) % [place] % (Auto) 13.5 H (5.3-12.2) % Eos % (Auto) 1.6 (0.8-7.0) Baso % (Auto) 0.4 (0.1-1.2) % Neut # (Auto) 3.67 (1.78-5.38) K/mm3 Lymph # (Auto) 1.00 L (1.32-3.57) K/mm3 [place] # (Auto) 0.75 (0.30-0.82) K/mm3 Eos # (Auto) 0.09 (0.04-0.54) K/mm3 Baso # (Auto) 0.02 (0.01-0.08) K/mm3 Manual Slide Review Abnormal smear Sodium 139 (136-145) mEq/L Potassium 3.2 L (3.5-5.1) mEq/L Chloride 105 (98-107) mEq/L Carbon Dioxide 24 (21-32) mEq/L Anion Gap 13.2 (5-15) BUN 15 (7-18) mg/dL Creatinine 1.1 (0.7-1.3) mg/dL Est Cr Clr Drug Dosing 49.24 mL/min Estimated GFR (MDRD) > 60 (>60) mL/min BUN/Creatinine Ratio 13.6 L (14-18) Glucose 84 (83-115) mg/dL POC Glucose 113 H (70-99) mg/dL Calcium 7.8 L (8.5-10.1) mg/dL Magnesium 2.1 (1.8-2.4) mg/dl Total Bilirubin 0.5 (0.2-1.0) mg/dL AST 38 H (15-37) U/L ALT 31 (16-63) U/L Alkaline Phosphatase 51 (46-116) U/L Total Protein 6.0 L (6.4-8.2) g/dl Albumin 2.5 L (3.4-5.0) g/dl Globulin 3.5 gm/dL Albumin/Globulin Ratio 0.7 L (1-2) Kaden Results Last 24 Hours: Microbiology 10/24/20 15:25 Aerobic Blood Culture - Preliminary Blood - Venous - Lab Draw NO GROWTH AFTER 1 DAY Anaerobic Blood Culture - Preliminary Gram Positive Cocci 10/24/20 15:33 Aerobic Blood Culture - Preliminary Blood - Venous NO GROWTH AFTER 1 DAY Anaerobic Blood Culture - Preliminary NO GROWTH AFTER 1 DAY Med Orders - Current: Current Medications Acetaminophen (Acetaminophen 650 Mg Supp) 650 mg RECTAL Q6H PRN PRN Reason: Pain (mild 1-3) Albuterol (Albuterol 6.7 Gm Inhaler) 0 gm INH Q4H PRN PRN Reason: Shortness of Breath Albuterol/Ipratropium (Albuterol/Ipratropium 3.0-0.5 Mg/3 Ml Neb Soln) 3 ml NEB Q4H PRN PRN Reason: Shortness Of Breath/wheezing Apixaban (Apixaban 5 Mg Tab) 5 mg PO BID [facility] Aspirin (Aspirin 81 Mg Tab.Ec Own Med) 81 mg PO DAILY [facility] Last Admin: 10/25/20 09:20 Dose: 81 mg Documented by: Ezetimibe (Ezetimibe 10 Mg Tab) 10 mg PO DAILY [facility] Finasteride (Finasteride 5 Mg Tab Own Med) 5 mg PO DAILY [facility] Last Admin: 10/25/20 09:13 Dose: 5 mg Documented by: Glipizide (Glipizide 5 Mg Tab Own Med) 5 mg PO BIDMEALS [facility] Last Admin: 10/26/20 06:40 Dose: 5 mg Documented by: Hydralazine HCl (Hydralazine 20 Mg/Ml Sdv) 10 mg IVPUSH Q4H PRN PRN Reason: Hypertension Sodium Chloride (Normal Saline) 1,000 mls @ 75 mls/hr IV ASDIRECTED [facility] Last Admin: 10/26/20 01:21 Dose: 75 mls/hr Documented by: Promethazine HCl 12.5 mg/ (Sodium Chloride) 50.5 mls @ 100 mls/hr IV Q6H PRN PRN Reason: Nausea/Vomiting Piperacillin Sod/Tazobactam (Sod 4.5 gm/ Sodium Chloride) 100 mls @ 25 mls/hr IV Q8H [facility] Last Admin: 10/26/20 01:21 Dose: 25 mls/hr Documented by: Vancomycin HCl 1 gm/ Sodium (Chloride) 250 mls @ 250 mls/hr IV Q12H [facility] Last Admin: 10/26/20 01:29 Dose: 250 mls/hr Documented by: Insulin Human Lispro (Insulin Lispro 100 Unit/Ml) 0 unit SUBCUT QIDACANDBED S CH; Protocol Last Admin: 10/26/20 06:40 Dose: Not Given Documented by: Losartan Potassium (Losartan 25 Mg Tab Ptom) 0 mg PO DAILY [facility] Last Admin: 10/25/20 10:22 Dose: Not Given Documented by: Melatonin (Melatonin 3 Mg Tab) 9 mg PO BEDTIME [facility] Last Admin: 10/25/20 20:59 Dose: 9 mg Documented by: Metoprolol Succinate (Metoprolol Succinate 50 Mg Tab.Er Own Med) 50 mg PO DAILY [facility] Last Admin: 10/25/20 09:18 Dose: 50 mg Documented by: Omkar (Bimatoprost () Oph *Own Med) 1 drop EYEBOTH QPM [facility] Last Admin: 10/25/20 17:53 Dose: 1 drop Documented by: Tiotropium (Spiriva) 18 Mcg Inhaler * Own Med 0 inh INH DAILY [facility] Last Admin: 10/25/20 11:31 Dose: 1 inh Documented by: Miryam (Sitagliptan () 100mg Own Med) 0 each PO DAILY [facility] Last Admin: 10/25/20 10:43 Dose: 1 each Documented by: Pravastatin Sodium (Pravastatin 20 Mg Tab Own Med) 20 mg PO BID [facility] Last Admin: 10/25/20 20:58 Dose: 20 mg Documented by: Pravastatin Sodium (Pravastatin 20 Mg Tab) 20 mg PO BID [facility] Sodium Chloride (Sodium Chloride 0.9% 10 Ml Syringe) 10 ml FLUSH ASDIRECTED PRN PRN Reason: Keep Vein Open Last Admin: 10/24/20 14:52 Dose: 10 ml Documented by: Tamsulosin HCl (Tamsulosin 0.4 Mg Cap.Er Own Med) 0.4 mg PO QPM [facility] Last Admin: 10/25/20 17:53 Dose: 0.4 mg Documented by: Vancomycin HCl (Pharmacy To Dose - Vancomycin) 1 dose .XX ASDIRECTED [facility] Discontinued Medications Acetaminophen (Acetaminophen 325 Mg Tab) 650 mg PO NOW ONE Stop: 10/24/20 14:48 Last Admin: 10/24/20 14:51 Dose: 650 mg Documented by: Albuterol (Albuterol 6.7 Gm Inhaler) 0 gm INH Q4HR PRN PRN Reason: Shortness of Breath Apixaban (Apixaban 5 Mg Tab) 5 mg PO BID [facility] Last Admin: 10/24/20 23:00 Dose: Not Given Documented by: Apixaban (Apixaban 5 Mg Tab Own Med) 5 mg PO BID [facility] Last Admin: 10/25/20 20:58 Dose: 5 mg Documented by: Aspirin (Aspirin 81 Mg Tab.Ec) 81 mg PO DAILY [facility] Last Admin: 10/25/20 10:28 Dose: Not Given Documented by: Ezetimibe (Ezetimibe 10 Mg Tab Own Med) 10 mg PO DAILY [facility] Enoxaparin Sodium (Enoxaparin 40 Mg/0.4 Ml Syringe) 40 mg SUBCUT DAILY [facility] Last Admin: 10/24/20 23:00 Dose: Not Given Documented by: Glipizide (Glipizide 5 Mg Tab.Er) 5 mg PO BID [facility] Last Admin: 10/25/20 10:28 Dose: Not Given Documented by: Sodium Chloride (Normal Saline) 1,000 mls @ 999 mls/hr IV BOLUS ONE; Protocol Stop: 10/24/20 15:34 Last Admin: 10/24/20 14:52 Dose: 999 mls/hr Documented by: Piperacillin Sod/Tazobactam (Sod 4.5 gm/ Sodium Chloride) 100 mls @ 200 mls/hr IV ONETIME ONE Stop: 10/24/20 17:58 Last Admin: 10/24/20 17:43 Dose: 200 mls/hr Documented by: Sodium Chloride (Normal Saline) 1,000 mls @ 500 mls/hr IV ONETIME ONE Stop: 10/24/20 19:28 Last Admin: 10/24/20 17:43 Dose: 500 mls/hr Documented by: Magnesium Sulfate 4 gm/ Premix 0 mls @ 12.5 mls/hr IV ONETIME ONE Stop: 10/25/20 16:51 Last Admin: 10/25/20 18:09 Dose: Not Given Documented by: Magnesium Sulfate (Magnesium Sulfate In Water 2 Gm/50 Ml) 2 gm in 50 mls @ 25 mls/hr IV ONETIME ONE Stop: 10/25/20 18:59 Last Admin: 10/25/20 17:31 Dose: 25 mls/hr Documented by: Insulin Human Lispro (Insulin Lispro 100 Units/Ml 3 Ml Vial) 0 unit SUBCUT QIDACANDBED [facility]; Protocol Last Admin: 10/25/20 10:28 Dose: Not Given Documented by: Ketorolac Tromethamine (Ketorolac 30 Mg/Ml Sdv) 30 mg IVPUSH ONETIME ONE Stop: 10/24/20 16:13 Last Admin: 10/24/20 16:19 Dose: 30 mg Documented by: Losartan Potassium (Losartan 25 Mg Tab) 12.5 mg PO DAILY [facility] Last Admin: 10/25/20 09:14 Dose: 12.5 mg Documented by: Melatonin (Melatonin 3 Mg Tab) 9 mg PO QPM [facility] Morphine Sulfate (Morphine 2 Mg/Ml Syringe) 2 mg IVPUSH Q4H PRN PRN Reason: Pain (severe 7-10) Stop: 10/25/20 18:16 Non-Formulary Medication (Pravastatin) 40 mg PO DAILY [facility] Potassium Chloride (Potassium Chloride 20 Meq Tab.Er) 40 meq PO ONETIME ONE Stop: 10/24/20 19:06 Last Admin: 10/24/20 20:05 Dose: 40 meq Documented by: Potassium Chloride (Potassium Chloride 10 Meq Cap Own Med) 0 meq PO ONETIME ONE Stop: 10/25/20 09:01 Last Admin: 10/25/20 09:11 Dose: 40 meq Documented by: - Exam Quality Assessment: No: Supplemental Oxygen General: Alert, Oriented HEENT: Pupils Equal, Pupils Reactive, Mucous Membr. Moist/[place], Other (Poor dentition, no overt abscess seen however patient does have tooth decay as well as multiple fillings/bridge) Neck: Supple Lungs: Clear to Auscultation, Normal Respiratory Effort Cardiovascular: Regular Rate, Regular Rhythm GI/Abdominal Exam: Normal Bowel Sounds, Soft, Non-Tender Extremities: Normal Inspection, Non-Tender, No Pedal Edema Neurological: No New Focal Deficit Psy/Mental Status: Alert, Normal Affect, Normal Mood - Patient Data Lab Results Last 24 hrs: Laboratory Results - last 24 hr 10/25/20 10/25/20 10/25/20 Range/Units 11:29 16:58 20:53 WBC (4.23-9.07) K/mm3 RBC (4.63-6.08) M/mm3 Hgb (13.7-17.5) gm/dl Hct (40.1-51.0) % MCV (79.0-92.2) fl MCH (25.7-32.2) pg MCHC (32.2-35.5) g/dl RDW Std Deviation (35.1-43.9) fL Plt Count (163-337) K/mm3 MPV (9.4-12.3) fl Neut % (Auto) (34.0-67.9) % Lymph % (Auto) (21.8-53.1) % [place] % (Auto) (5.3-12.2) % Eos % (Auto) (0.8-7.0) Baso % (Auto) (0.1-1.2) % Neut # (Auto) (1.78-5.38) K/mm3 Lymph # (Auto) (1.32-3.57) K/mm3 [place] # (Auto) (0.30-0.82) K/mm3 Eos # (Auto) (0.04-0.54) K/mm3 Baso # (Auto) (0.01-0.08) K/mm3 Manual Slide Review Sodium (136-145) mEq/L Potassium (3.5-5.1) mEq/L Chloride (98-107) mEq/L Carbon Dioxide (21-32) mEq/L Anion Gap (5-15) BUN (7-18) mg/dL Creatinine (0.7-1.3) mg/dL Est Cr Clr Drug Dosing mL/min Estimated GFR (MDRD) (>60) mL/min BUN/Creatinine Ratio (14-18) Glucose (83-115) mg/dL POC Glucose 149 H 82 122 H (70-99) mg/dL Calcium (8.5-10.1) mg/dL Magnesium (1.8-2.4) mg/dl Total Bilirubin (0.2-1.0) mg/dL AST (15-37) U/L ALT (16-63) U/L Alkaline Phosphatase (46-116) U/L Total Protein (6.4-8.2) g/dl Albumin (3.4-5.0) g/dl Globulin gm/dL Albumin/Globulin Ratio (1-2) 10/26/20 10/26/20 10/26/20 Range/Units 04:41 04:41 06:38 WBC 5.54 (4.23-9.07) K/mm3 RBC 3.94 L (4.63-6.08) M/mm3 Hgb 12.0 L D (13.7-17.5) gm/dl Hct 36.0 L (40.1-51.0) % MCV 91.4 (79.0-92.2) fl MCH 30.5 (25.7-32.2) pg MCHC 33.3 (32.2-35.5) g/dl RDW Std Deviation 49.5 H (35.1-43.9) fL Plt Count 94 L (163-337) K/mm3 MPV 9.9 (9.4-12.3) fl Neut % (Auto) 66.2 (34.0-67.9) % Lymph % (Auto) 18.1 L (21.8-53.1) % [place] % (Auto) 13.5 H (5.3-12.2) % Eos % (Auto) 1.6 (0.8-7.0) Baso % (Auto) 0.4 (0.1-1.2) % Neut # (Auto) 3.67 (1.78-5.38) K/mm3 Lymph # (Auto) 1.00 L (1.32-3.57) K/mm3 [place] # (Auto) 0.75 (0.30-0.82) K/mm3 Eos # (Auto) 0.09 (0.04-0.54) K/mm3 Baso # (Auto) 0.02 (0.01-0.08) K/mm3 Manual Slide Review Abnormal smear Sodium 139 (136-145) mEq/L Potassium 3.2 L (3.5-5.1) mEq/L Chloride 105 (98-107) mEq/L Carbon Dioxide 24 (21-32) mEq/L Anion Gap 13.2 (5-15) BUN 15 (7-18) mg/dL Creatinine 1.1 (0.7-1.3) mg/dL Est Cr Clr Drug Dosing 49.24 mL/min Estimated GFR (MDRD) > 60 (>60) mL/min BUN/Creatinine Ratio 13.6 L (14-18) Glucose 84 (83-115) mg/dL POC Glucose 113 H (70-99) mg/dL Calcium 7.8 L (8.5-10.1) mg/dL Magnesium 2.1 (1.8-2.4) mg/dl Total Bilirubin 0.5 (0.2-1.0) mg/dL AST 38 H (15-37) U/L ALT 31 (16-63) U/L Alkaline Phosphatase 51 (46-116) U/L Total Protein 6.0 L (6.4-8.2) g/dl Albumin 2.5 L (3.4-5.0) g/dl Globulin 3.5 gm/dL Albumin/Globulin Ratio 0.7 L (1-2) Result Diagrams: 10/26/20 04:41 10/26/20 04:41 Kaden Results Last 24 hrs: Microbiology 10/24/20 15:25 Aerobic Blood Culture - Preliminary Blood - Venous - Lab Draw NO GROWTH AFTER 1 DAY Anaerobic Blood Culture - Preliminary Gram Positive Cocci 10/24/20 15:33 Aerobic Blood Culture - Preliminary Blood - Venous NO GROWTH AFTER 1 DAY Anaerobic Blood Culture - Preliminary NO GROWTH AFTER 1 DAY Sepsis Event Note - Evaluation Sepsis Screening Result: No Definite Risk - Focused Exam Vital Signs: Vital Signs Temp Pulse Resp BP Pulse Ox 10/26/20 03:56 99.9 F 58 L 20 115/49 L 95 10/25/20 21:08 98.2 F 65 12 132/57 L 93 L - Problem List Review Problem List Initiated/Reviewed/Updated: Yes - Assessment Assessment:: Bactremia/Sepsis -Gram positive cocci in BC @ 18hrs, 1/2 cultures -? Dental source, CT Max-facial pending -WBC 9.8 -->5.5 -Vancomycin/Zosyn -Intermittent subjective chills Anemia -Hgb 15.1 --> 13.6 -->12 -MCV 91 -Suspect dilutional, no active losses Thrombocytopenia -Plt 146 -->124 -->94 -INR 1.1 no evidence of DIC -On Eliquis, ASA Bradycardic -sinus bradycardia on Tele -HR in 40-50's, asymptomatic -On BB as OP -No evidence of Heart Block Hypokalemia -K 3.2 DM II -Well controlled, on SSI Urinary Retention -Cuevas inserted, has hx of BPH -On Finasteride, Tamsulosin as OP -No obstructive uropathy/GOYO HTN - Plan Plan:: Assessment: Plan: -DC Zosyn given Gram Positive Blood culture -Continue Vancomycin -DC Cuevas catheter, prn straight cath -Echo pending -CT maxillo-facial pending -MRSA Screen -Diabetic diet. Continue home medication glipizide 5 mg twice daily and Januvia. Metformin is on hold. Insulin sliding scale. Adjust insulin based on sugar levels -Continue losartan 12.5 mg daily -K replacement per protocol - Continue home Flomax and finasteride. Cuevas catheter -DVT prophylaxis: Eliquis -CODE STATUS: DNR/DNI Dispo: Predicated on culture results, echocardiogram and CT Facial. At this time patient may need PICC line with Abx vs PO Abx at time of discharge.
[2020-10-26] MEDS: Pravastatin 20 MG Tab PO SCH ×2 (09:46→22:15)
[2020-10-26] MEDS: Ezetimibe 10 MG Tab PO SCH (09:46)
[2020-10-26] MEDS: Losartan 25 MG Tab PO SCH (09:49)
[2020-10-26] MEDS: Finasteride 5 MG Tab PO SCH (09:56)
[2020-10-26] MEDS: TIOTROPIUM 18 MCG INH SCH (10:02)
[2020-10-26] MEDS ORDERED: EZETIMIBE 10 MG PO SCH (10:45)
[2020-10-26] MEDS: Apixaban 5 MG Tab PO SCH ×2 (10:58→22:15)
[2020-10-26] MEDS: Aspirin 81 MG Tab.EC PO SCH (10:59)
[2020-10-26] MEDS: Metoprolol Succinate 50 MG Tab.ER PO SCH (10:59)
[2020-10-26] MEDS ORDERED: Potassium Chloride 20 MEQ Tab.ER PO ONE (10:59)
[2020-10-26] MEDS ORDERED: Ibuprofen 400 MG Tab PO ONE (14:51)
[2020-10-26] MEDS ORDERED: Ibuprofen 400 MG Tab PO PRN (17:01)
[2020-10-26] MEDS: glipiZIDE 5 MG Tab PO SCH (17:45)
[2020-10-26] MEDS: BIMATOPROST EYEBOTH SCH (17:45)
[2020-10-26] MEDS: Tamsulosin 0.4 MG Cap.ER PO SCH (17:45)
[2020-10-26] MEDS: Melatonin 3 MG Tab PO SCH (22:16)
[2020-10-27] MEDS: Sodium Chloride 0.9% 1,000 ML IV SCH ×2 (05:31→18:29)
[2020-10-27] MEDS: Insulin Lispro 100 UNIT/ML 10 ML Vial SUBCUT SCH ×4 (06:41→23:16)
[2020-10-27] MEDS: glipiZIDE 5 MG Tab PO SCH ×2 (06:51→18:21)
--- NOTE | 2020-10-27 07:08 | CR ---
Chest: PA and lateral views of the chest were obtained. Comparison: Prior chest x-ray of 12/19/16. Heart size is normal. Slight tortuosity of the thoracic aorta is seen. Lungs are clear with no acute parenchymal change. 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 Mild degenerative change is noted within the spine. Prior cervical spine surgery and lumbar spine surgery is noted. Impression: 1. Findings as noted above. 2. Nothing acute is appreciated on 2 view chest x-ray. Diagnostic code #2
[2020-10-27] MEDS: TIOTROPIUM 18 MCG INH SCH (08:02)
--- NOTE | 2020-10-27 08:56 | CT ---
Head CT Technique: Multiple axial sections through the brain were obtained. Intravenous contrast was not utilized. Reconstructed coronal and sagittal images were obtained. Comparison: No prior intracranial imaging is available. Findings: Ventricles along with basal cisterns and sulci over the convexities are prominent. Very minimal areas of diminished density are noted within the periventricular white matter which most likely represent small vessel ischemic demyelination change. No other abnormal parenchymal densities are seen. No evidence of intracranial hemorrhage. No midline shift or mass-effect is seen. Bone window settings were reviewed which show slight mucosal thickening scattered within the ethmoid and left maxillary sinuses. Visualized mastoid sinuses show nothing acute. No acute calvarial abnormality is appreciated. Impression: 1. Senescent change as noted above. 2. Minimal sinus findings believed to be chronic. 3. No acute intracranial abnormality is appreciated. Diagnostic code #2 I agree with preliminary report from [facility], finalized on 10/25/20, 1:07 PM CDT, code 1
[2020-10-27] MEDS: Finasteride 5 MG Tab PO SCH (11:30)
[2020-10-27] MEDS: Metoprolol Succinate 50 MG Tab.ER PO SCH (11:31)
[2020-10-27] MEDS: Apixaban 5 MG Tab PO SCH ×2 (11:31→21:16)
[2020-10-27] MEDS: Pravastatin 20 MG Tab PO SCH ×2 (11:31→21:16)
[2020-10-27] MEDS: Ezetimibe 10 MG Tab PO SCH (11:37)
[2020-10-27] MEDS: Losartan 25 MG Tab PO SCH (11:37)
[2020-10-27] MEDS: Aspirin 81 MG Tab.EC PO SCH (11:37)
--- NOTE | 2020-10-27 11:57 | PCM.PN ---
- General Info Date of Service: 10/27/20 Admission Dx/Problem (Free Text): Overnight no events reported per patient nursing staff, at this time patient is resting comfortably. Per discussion with the was at bedside this morning she states that the patient was told by a his dentist that he needed to have extractions done by oral maxillofacial surgeon months ago however this did not get scheduled. does also relate that he was recently discharged from a rehabilitation facility approximately 14 days ago, at home he had started to become weak and wobbly as well prior to presentation. At this time patient c ontinues to have ongoing weakness and decreased ambulatory ability. Functional Status: Reports: Pain Controlled - Review of Systems General: Reports: Weakness, Fatigue, Malaise, Chills. Denies: Fever HEENT: Reports: No Symptoms Pulmonary: Reports: No Symptoms Cardiovascular: Reports: No Symptoms Gastrointestinal: Reports: No Symptoms Genitourinary: Reports: No Symptoms Musculoskeletal: Reports: No Symptoms Skin: Reports: No Symptoms Neurological: Reports: No Symptoms - Patient Data Vitals - Most Recent: Last Vital Signs Temp 97.3 F 10/27/20 07:19 Pulse 53 L 10/27/20 11:31 Resp 20 10/27/20 07:19 BP 149/98 H 10/27/20 11:37 Pulse Ox 97 10/27/20 08:02 Weight - Most Recent: 165 lb 14.4 oz I&O - Last 24 Hours: Intake & Output 10/26/20 10/27/20 10/27/20 22:59 06:59 14:59 Intake Total 1407 1480 Output Total 950 875 Balance 457 605 Lab Results Last 24 Hours: Laboratory Results - last 24 hr 10/26/20 10/26/20 10/27/20 Range/Units 17:06 22:10 04:53 WBC 4.46 (4.23-9.07) K/mm3 RBC 3.90 L (4.63-6.08) M/mm3 Hgb 11.8 L (13.7-17.5) gm/dl Hct 36.2 L (40.1-51.0) % MCV 92.8 H (79.0-92.2) fl MCH 30.3 (25.7-32.2) pg MCHC 32.6 (32.2-35.5) g/dl RDW Std Deviation 50.1 H (35.1-43.9) fL Plt Count 87 L (163-337) K/mm3 MPV 10.2 (9.4-12.3) fl Neut % (Auto) 53.7 (34.0-67.9) % Lymph % (Auto) 26.9 (21.8-53.1) % Hardeman % (Auto) 15.0 H (5.3-12.2) % Eos % (Auto) 4.0 (0.8-7.0) Baso % (Auto) 0.4 (0.1-1.2) % Neut # (Auto) 2.39 (1.78-5.38) K/mm3 Lymph # (Auto) 1.20 L (1.32-3.57) K/mm3 Hardeman # (Auto) 0.67 (0.30-0.82) K/mm3 Eos # (Auto) 0.18 (0.04-0.54) K/mm3 Baso # (Auto) 0.02 (0.01-0.08) K/mm3 Manual Slide Review Abnormal smear Sodium (136-145) mEq/L Potassium (3.5-5.1) mEq/L Chloride (98-107) mEq/L Carbon Dioxide (21-32) mEq/L Anion Gap (5-15) BUN (7-18) mg/dL Creatinine (0.7-1.3) mg/dL Est Cr Clr Drug Dosing mL/min Estimated GFR (MDRD) (>60) mL/min BUN/Creatinine Ratio (14-18) Glucose (83-115) mg/dL POC Glucose 157 H 128 H (70-99) mg/dL Calcium (8.5-10.1) mg/dL Total Bilirubin (0.2-1.0) mg/dL AST (15-37) U/L ALT (16-63) U/L Alkaline Phosphatase (46-116) U/L Total Protein (6.4-8.2) g/dl Albumin (3.4-5.0) g/dl Globulin gm/dL Albumin/Globulin Ratio (1-2) 10/27/20 10/27/20 10/27/20 Range/Units 04:53 06:22 06:58 WBC (4.23-9.07) K/mm3 RBC (4.63-6.08) M/mm3 Hgb (13.7-17.5) gm/dl Hct (40.1-51.0) % MCV (79.0-92.2) fl MCH (25.7-32.2) pg MCHC (32.2-35.5) g/dl RDW Std Deviation (35.1-43.9) fL Plt Count (163-337) K/mm3 MPV (9.4-12.3) fl Neut % (Auto) (34.0-67.9) % Lymph % (Auto) (21.8-53.1) % Hardeman % (Auto) (5.3-12.2) % Eos % (Auto) (0.8-7.0) Baso % (Auto) (0.1-1.2) % Neut # (Auto) (1.78-5.38) K/mm3 Lymph # (Auto) (1.32-3.57) K/mm3 Hardeman # (Auto) (0.30-0.82) K/mm3 Eos # (Auto) (0.04-0.54) K/mm3 Baso # (Auto) (0.01-0.08) K/mm3 Manual Slide Review Sodium 143 (136-145) mEq/L Potassium 4.0 (3.5-5.1) mEq/L Chloride 110 H (98-107) mEq/L Carbon Dioxide 26 (21-32) mEq/L Anion Gap 11.0 (5-15) BUN 18 (7-18) mg/dL Creatinine 1.1 (0.7-1.3) mg/dL Est Cr Clr Drug Dosing 49.24 mL/min Estimated GFR (MDRD) > 60 (>60) mL/min BUN/Creatinine Ratio 16.4 (14-18) Glucose 78 L (83-115) mg/dL POC Glucose 77 97 (70-99) mg/dL Calcium 7.7 L (8.5-10.1) mg/dL Total Bilirubin 0.4 (0.2-1.0) mg/dL AST 42 H (15-37) U/L ALT 48 (16-63) U/L Alkaline Phosphatase 63 (46-116) U/L Total Protein 5.9 L (6.4-8.2) g/dl Albumin 2.3 L (3.4-5.0) g/dl Globulin 3.6 gm/dL Albumin/Globulin Ratio 0.6 L (1-2) 10/27/20 Range/Units 11:29 WBC (4.23-9.07) K/mm3 RBC (4.63-6.08) M/mm3 Hgb (13.7-17.5) gm/dl Hct (40.1-51.0) % MCV (79.0-92.2) fl MCH (25.7-32.2) pg MCHC (32.2-35.5) g/dl RDW Std Deviation (35.1-43.9) fL Plt Count (163-337) K/mm3 MPV (9.4-12.3) fl Neut % (Auto) (34.0-67.9) % Lymph % (Auto) (21.8-53.1) % Hardeman % (Auto) (5.3-12.2) % Eos % (Auto) (0.8-7.0) Baso % (Auto) (0.1-1.2) % Neut # (Auto) (1.78-5.38) K/mm3 Lymph # (Auto) (1.32-3.57) K/mm3 Hardeman # (Auto) (0.30-0.82) K/mm3 Eos # (Auto) (0.04-0.54) K/mm3 Baso # (Auto) (0.01-0.08) K/mm3 Manual Slide Review Sodium (136-145) mEq/L Potassium (3.5-5.1) mEq/L Chloride (98-107) mEq/L Carbon Dioxide (21-32) mEq/L Anion Gap (5-15) BUN (7-18) mg/dL Creatinine (0.7-1.3) mg/dL Est Cr Clr Drug Dosing mL/min Estimated GFR (MDRD) (>60) mL/min BUN/Creatinine Ratio (14-18) Glucose (83-115) mg/dL POC Glucose 106 H (70-99) mg/dL Calcium (8.5-10.1) mg/dL Total Bilirubin (0.2-1.0) mg/dL AST (15-37) U/L ALT (16-63) U/L Alkaline Phosphatase (46-116) U/L Total Protein (6.4-8.2) g/dl Albumin (3.4-5.0) g/dl Globulin gm/dL Albumin/Globulin Ratio (1-2) Kaden Results Last 24 Hours: Microbiology 10/24/20 15:25 Aerobic Blood Culture - Preliminary Blood - Venous - Lab Draw NO GROWTH AFTER 2 DAYS Anaerobic Blood Culture - Preliminary Staphylococcus Aureus 10/24/20 15:33 Aerobic Blood Culture - Preliminary Blood - Venous NO GROWTH AFTER 2 DAYS Anaerobic Blood Culture - Preliminary Gram Positive Cocci 10/25/20 15:32 Aerobic Blood Culture - Preliminary Blood - Venous - Lab Draw NO GROWTH AFTER 1 DAY Anaerobic Blood Culture - Preliminary NO GROWTH AFTER 1 DAY 10/25/20 15:22 Aerobic Blood Culture - Preliminary Blood - Venous NO GROWTH AFTER 1 DAY Anaerobic Blood Culture - Preliminary NO GROWTH AFTER 1 DAY 10/24/20 14:22 Urine Culture - Final Urine, Clean Catch MIXED ISIDORO SUGGESTIVE OF CONTAMINATION. Med Orders - Current: Current Medications Acetaminophen (Acetaminophen 650 Mg Supp) 650 mg RECTAL Q6H PRN PRN Reason: Pain (mild 1-3) Albuterol (Albuterol 6.7 Gm Inhaler) 0 gm INH Q4H PRN PRN Reason: Shortness of Breath Albuterol/Ipratropium (Albuterol/Ipratropium 3.0-0.5 Mg/3 Ml Neb Soln) 3 ml NEB Q4H PRN PRN Reason: Shortness Of Breath/wheezing Alogliptin Benzoate (Alogliptin 12.5 Mg Tab) 12.5 mg PO DAILY [facility] [place] Last Admin: 10/27/20 11:31 Dose: 12.5 mg Documented by: Apixaban (Apixaban 5 Mg Tab) 5 mg PO BID [facility] [place] Last Admin: 10/27/20 11:31 Dose: 5 mg Documented by: Aspirin (Aspirin 81 Mg Tab.Ec) 81 mg PO DAILY [facility] [place] Last Admin: 10/27/20 11:37 Dose: Not Given Documented by: Ezetimibe (Ezetimibe 10 Mg Tab) 10 mg PO DAILY [facility] [place] Last Admin: 10/27/20 11:37 Dose: 10 mg Documented by: Finasteride (Finasteride 5 Mg Tab) 5 mg PO DAILY [facility] [place] Last Admin: 10/27/20 11:30 Dose: 5 mg Documented by: Glipizide (Glipizide 5 Mg Tab) 5 mg PO BIDMEALS [facility] [place] Last Admin: 10/27/20 06:51 Dose: 5 mg Documented by: Hydralazine HCl (Hydralazine 20 Mg/Ml Sdv) 10 mg IVPUSH Q4H PRN PRN Reason: Hypertension Sodium Chloride (Normal Saline) 1,000 mls @ 75 mls/hr IV ASDIRECTED [facility] [place] Last Admin: 10/27/20 05:31 Dose: 75 mls/hr Documented by: Promethazine HCl 12.5 mg/ (Sodium Chloride) 50.5 mls @ 100 mls/hr IV Q6H PRN PRN Reason: Nausea/Vomiting Ibuprofen (Ibuprofen 400 Mg Tab) 400 mg PO Q8H PRN PRN Reason: Fever Insulin Human Lispro (Insulin Lispro 100 Unit/Ml) 0 unit SUBCUT QIDACANDBED [facility] [place]; Protocol Last Admin: 10/27/20 11:38 Dose: Not Given Documented by: Losartan Potassium (Losartan 25 Mg Tab) 12.5 mg PO DAILY [facility] [place] Last Admin: 10/27/20 11:37 Dose: 12.5 mg Documented by: Melatonin (Melatonin 3 Mg Tab) 9 mg PO BEDTIME [facility] [place] Last Admin: 10/26/20 22:16 Dose: 9 mg Documented by: Metoprolol Succinate (Metoprolol Succinate 50 Mg Tab.Er) 50 mg PO DAILY [facility] [place] Last Admin: 10/27/20 11:31 Dose: 50 mg Documented by: Omkar (Bimatoprost () Oph *Own Med) 1 drop EYEBOTH QPM [facility] [place] Last Admin: 10/26/20 17:45 Dose: 1 drop Documented by: Tiotropium (Spiriva) 18 Mcg Inhaler * Own Med 0 inh INH DAILY [facility] [place] Last Admin: 10/27/20 08:02 Dose: 1 inh Documented by: Pravastatin Sodium (Pravastatin 20 Mg Tab) 20 mg PO BID [facility] [place] Last Admin: 10/27/20 11:31 Dose: 20 mg Documented by: Sodium Chloride (Sodium Chloride 0.9% 10 Ml Syringe) 10 ml FLUSH ASDIRECTED PRN PRN Reason: Keep Vein Open Last Admin: 10/24/20 14:52 Dose: 10 ml Documented by: Tamsulosin HCl (Tamsulosin 0.4 Mg Cap.Er) 0.4 mg PO QPM [facility] [place] Last Admin: 10/26/20 17:45 Dose: 0.4 mg Documented by: Discontinued Medications Acetaminophen (Acetaminophen 325 Mg Tab) 650 mg PO NOW ONE Stop: 10/24/20 14:48 Last Admin: 10/24/20 14:51 Dose: 650 mg Documented by: Albuterol (Albuterol 6.7 Gm Inhaler) 0 gm INH Q4HR PRN PRN Reason: Shortness of Breath Apixaban (Apixaban 5 Mg Tab) 5 mg PO BID [facility] [place] Last Admin: 10/24/20 23:00 Dose: Not Given Documented by: Apixaban (Apixaban 5 Mg Tab Own Med) 5 mg PO BID [facility] [place] Last Admin: 10/25/20 20:58 Dose: 5 mg Documented by: Aspirin (Aspirin 81 Mg Tab.Ec) 81 mg PO DAILY [facility] [place] Last Admin: 10/25/20 10:28 Dose: Not Given Documented by: Aspirin (Aspirin 81 Mg Tab.Ec Own Med) 81 mg PO DAILY [facility] [place] Last Admin: 10/25/20 09:20 Dose: 81 mg Documented by: Ezetimibe (Ezetimibe 10 Mg Tab Own Med) 10 mg PO DAILY [facility] [place] Enoxaparin Sodium (Enoxaparin 40 Mg/0.4 Ml Syringe) 40 mg SUBCUT DAILY [facility] [place] Last Admin: 10/24/20 23:00 Dose: Not Given Documented by: Finasteride (Finasteride 5 Mg Tab Own Med) 5 mg PO DAILY [facility] [place] Last Admin: 10/25/20 09:13 Dose: 5 mg Documented by: Glipizide (Glipizide 5 Mg Tab.Er) 5 mg PO BID [facility] [place] Last Admin: 10/25/20 10:28 Dose: Not Given Documented by: Glipizide (Glipizide 5 Mg Tab Own Med) 5 mg PO BIDMEALS [facility] [place] Last Admin: 10/26/20 06:40 Dose: 5 mg Documented by: Sodium Chloride (Normal Saline) 1,000 mls @ 999 mls/hr IV BOLUS ONE; Protocol Stop: 10/24/20 15:34 Last Admin: 10/24/20 14:52 Dose: 999 mls/hr Documented by: Piperacillin Sod/Tazobactam (Sod 4.5 gm/ Sodium Chloride) 100 mls @ 200 mls/hr IV ONETIME ONE Stop: 10/24/20 17:58 Last Admin: 10/24/20 17:43 Dose: 200 mls/hr Documented by: Sodium Chloride (Normal Saline) 1,000 mls @ 500 mls/hr IV ONETIME ONE Stop: 10/24/20 19:28 Last Admin: 10/24/20 17:43 Dose: 500 mls/hr Documented by: Piperacillin Sod/Tazobactam (Sod 4.5 gm/ Sodium Chloride) 100 mls @ 25 mls/hr IV Q8H [facility] [place] Last Admin: 10/26/20 01:21 Dose: 25 mls/hr Documented by: Vancomycin HCl 1 gm/ Sodium (Chloride) 250 mls @ 250 mls/hr IV Q12H [facility] [place] Last Admin: 10/27/20 03:29 Dose: 250 mls/hr Documented by: Magnesium Sulfate 4 gm/ Premix 0 mls @ 12.5 mls/hr IV ONETIME ONE Stop: 10/25/20 16:51 Last Admin: 10/25/20 18:09 Dose: Not Given Documented by: Magnesium Sulfate (Magnesium Sulfate In Water 2 Gm/50 Ml) 2 gm in 50 mls @ 25 mls/hr IV ONETIME ONE Stop: 10/25/20 18:59 Last Admin: 10/25/20 17:31 Dose: 25 mls/hr Documented by: Ibuprofen (Ibuprofen 400 Mg Tab) 400 mg PO ONETIME ONE Stop: 10/26/20 14:52 Last Admin: 10/26/20 15:00 Dose: 400 mg Documented by: Insulin Human Lispro (Insulin Lispro 100 Units/Ml 3 Ml Vial) 0 unit SUBCUT QIDACANDBED [facility] [place]; Protocol Last Admin: 10/25/20 10:28 Dose: Not Given Documented by: Ketorolac Tromethamine (Ketorolac 30 Mg/Ml Sdv) 30 mg IVPUSH ONETIME ONE Stop: 10/24/20 16:13 Last Admin: 10/24/20 16:19 Dose: 30 mg Documented by: Losartan Potassium (Losartan 25 Mg Tab) 12.5 mg PO DAILY [facility] [place] Last Admin: 10/25/20 09:14 Dose: 12.5 mg Documented by: Losartan Potassium (Losartan 25 Mg Tab Ptom) 0 mg PO DAILY [facility] [place] Last Admin: 10/25/20 10:22 Dose: Not Given Documented by: Melatonin (Melatonin 3 Mg Tab) 9 mg PO QPM [facility] [place] Metoprolol Succinate (Metoprolol Succinate 50 Mg Tab.Er Own Med) 50 mg PO DAILY [facility] [place] Last Admin: 10/25/20 09:18 Dose: 50 mg Documented by: Morphine Sulfate (Morphine 2 Mg/Ml Syringe) 2 mg IVPUSH Q4H PRN PRN Reason: Pain (severe 7-10) Stop: 10/25/20 18:16 Non-Formulary Medication (Pravastatin) 40 mg PO DAILY [facility] [place] Januvia (Sitagliptan () 100mg Own Med) 0 each PO DAILY [facility] [place] Last Admin: 10/25/20 10:43 Dose: 1 each Documented by: Potassium Chloride (Potassium Chloride 20 Meq Tab.Er) 40 meq PO ONETIME ONE Stop: 10/24/20 19:06 Last Admin: 10/24/20 20:05 Dose: 40 meq Documented by: Potassium Chloride (Potassium Chloride 10 Meq Cap Own Med) 0 meq PO ONETIME ONE Stop: 10/25/20 09:01 Last Admin: 10/25/20 09:11 Dose: 40 meq Documented by: Potassium Chloride (Potassium Chloride 20 Meq Tab.Er) 40 meq PO ONETIME ONE Stop: 10/26/20 11:00 Last Admin: 10/26/20 11:07 Dose: 40 meq Documented by: Pravastatin Sodium (Pravastatin 20 Mg Tab Own Med) 20 mg PO BID [facility] [place] Last Admin: 10/25/20 20:58 Dose: 20 mg Documented by: Tamsulosin HCl (Tamsulosin 0.4 Mg Cap.Er Own Med) 0.4 mg PO QPM [facility] [place] Last Admin: 10/25/20 17:53 Dose: 0.4 mg Documented by: Vancomycin HCl (Pharmacy To Dose - Vancomycin) 1 dose .XX ASDIRECTED PRN PRN Reason: RX TO DOSE VANCO - Exam Quality Assessment: DVT Prophylaxis General: Alert HEENT: Pupils Equal Neck: Supple Lungs: Clear to Auscultation, Normal Respiratory Effort Cardiovascular: No Murmurs, Bradycardia GI/Abdominal Exam: Normal Bowel Sounds, Soft, Non-Tender, No Distention Extremities: Normal Inspection, Non-Tender, No Pedal Edema, Normal Capillary Refill Peripheral Pulses: 2+: Radial (L), Radial (R) Skin: Warm, Dry, Intact Neurological: No New Focal Deficit Psy/Mental Status: Alert, Normal Affect - Patient Data Lab Results Last 24 hrs: Laboratory Results - last 24 hr 10/26/20 10/26/20 10/27/20 Range/Units 17:06 22:10 04:53 WBC 4.46 (4.23-9.07) K/mm3 RBC 3.90 L (4.63-6.08) M/mm3 Hgb 11.8 L (13.7-17.5) gm/dl Hct 36.2 L (40.1-51.0) % MCV 92.8 H (79.0-92.2) fl MCH 30.3 (25.7-32.2) pg MCHC 32.6 (32.2-35.5) g/dl RDW Std Deviation 50.1 H (35.1-43.9) fL Plt Count 87 L (163-337) K/mm3 MPV 10.2 (9.4-12.3) fl Neut % (Auto) 53.7 (34.0-67.9) % Lymph % (Auto) 26.9 (21.8-53.1) % Hardeman % (Auto) 15.0 H (5.3-12.2) % Eos % (Auto) 4.0 (0.8-7.0) Baso % (Auto) 0.4 (0.1-1.2) % Neut # (Auto) 2.39 (1.78-5.38) K/mm3 Lymph # (Auto) 1.20 L (1.32-3.57) K/mm3 Hardeman # (Auto) 0.67 (0.30-0.82) K/mm3 Eos # (Auto) 0.18 (0.04-0.54) K/mm3 Baso # (Auto) 0.02 (0.01-0.08) K/mm3 Manual Slide Review Abnormal smear Sodium (136-145) mEq/L Potassium (3.5-5.1) mEq/L Chloride (98-107) mEq/L Carbon Dioxide (21-32) mEq/L Anion Gap (5-15) BUN (7-18) mg/dL Creatinine (0.7-1.3) mg/dL Est Cr Clr Drug Dosing mL/min Estimated GFR (MDRD) (>60) mL/min BUN/Creatinine Ratio (14-18) Glucose (83-115) mg/dL POC Glucose 157 H 128 H (70-99) mg/dL Calcium (8.5-10.1) mg/dL Total Bilirubin (0.2-1.0) mg/dL AST (15-37) U/L ALT (16-63) U/L Alkaline Phosphatase (46-116) U/L Total Protein (6.4-8.2) g/dl Albumin (3.4-5.0) g/dl Globulin gm/dL Albumin/Globulin Ratio (1-2) 10/27/20 10/27/20 10/27/20 Range/Units 04:53 06:22 06:58 WBC (4.23-9.07) K/mm3 RBC (4.63-6.08) M/mm3 Hgb (13.7-17.5) gm/dl Hct (40.1-51.0) % MCV (79.0-92.2) fl MCH (25.7-32.2) pg MCHC (32.2-35.5) g/dl RDW Std Deviation (35.1-43.9) fL Plt Count (163-337) K/mm3 MPV (9.4-12.3) fl Neut % (Auto) (34.0-67.9) % Lymph % (Auto) (21.8-53.1) % Hardeman % (Auto) (5.3-12.2) % Eos % (Auto) (0.8-7.0) Baso % (Auto) (0.1-1.2) % Neut # (Auto) (1.78-5.38) K/mm3 Lymph # (Auto) (1.32-3.57) K/mm3 Hardeman # (Auto) (0.30-0.82) K/mm3 Eos # (Auto) (0.04-0.54) K/mm3 Baso # (Auto) (0.01-0.08) K/mm3 Manual Slide Review Sodium 143 (136-145) mEq/L Potassium 4.0 (3.5-5.1) mEq/L Chloride 110 H (98-107) mEq/L Carbon Dioxide 26 (21-32) mEq/L Anion Gap 11.0 (5-15) BUN 18 (7-18) mg/dL Creatinine 1.1 (0.7-1.3) mg/dL Est Cr Clr Drug Dosing 49.24 mL/min Estimated GFR (MDRD) > 60 (>60) mL/min BUN/Creatinine Ratio 16.4 (14-18) Glucose 78 L (83-115) mg/dL POC Glucose 77 97 (70-99) mg/dL Calcium 7.7 L (8.5-10.1) mg/dL Total Bilirubin 0.4 (0.2-1.0) mg/dL AST 42 H (15-37) U/L ALT 48 (16-63) U/L Alkaline Phosphatase 63 (46-116) U/L Total Protein 5.9 L (6.4-8.2) g/dl Albumin 2.3 L (3.4-5.0) g/dl Globulin 3.6 gm/dL Albumin/Globulin Ratio 0.6 L (1-2) 10/27/20 Range/Units 11:29 WBC (4.23-9.07) K/mm3 RBC (4.63-6.08) M/mm3 Hgb (13.7-17.5) gm/dl Hct (40.1-51.0) % MCV (79.0-92.2) fl MCH (25.7-32.2) pg MCHC (32.2-35.5) g/dl RDW Std Deviation (35.1-43.9) fL Plt Count (163-337) K/mm3 MPV (9.4-12.3) fl Neut % (Auto) (34.0-67.9) % Lymph % (Auto) (21.8-53.1) % Hardeman % (Auto) (5.3-12.2) % Eos % (Auto) (0.8-7.0) Baso % (Auto) (0.1-1.2) % Neut # (Auto) (1.78-5.38) K/mm3 Lymph # (Auto) (1.32-3.57) K/mm3 Hardeman # (Auto) (0.30-0.82) K/mm3 Eos # (Auto) (0.04-0.54) K/mm3 Baso # (Auto) (0.01-0.08) K/mm3 Manual Slide Review Sodium (136-145) mEq/L Potassium (3.5-5.1) mEq/L Chloride (98-107) mEq/L Carbon Dioxide (21-32) mEq/L Anion Gap (5-15) BUN (7-18) mg/dL Creatinine (0.7-1.3) mg/dL Est Cr Clr Drug Dosing mL/min Estimated GFR (MDRD) (>60) mL/min BUN/Creatinine Ratio (14-18) Glucose (83-115) mg/dL POC Glucose 106 H (70-99) mg/dL Calcium (8.5-10.1) mg/dL Total Bilirubin (0.2-1.0) mg/dL AST (15-37) U/L ALT (16-63) U/L Alkaline Phosphatase (46-116) U/L Total Protein (6.4-8.2) g/dl Albumin (3.4-5.0) g/dl Globulin gm/dL Albumin/Globulin Ratio (1-2) Result Diagrams: 10/27/20 04:53 10/27/20 04:53 Kaden Results Last 24 hrs: Microbiology 10/24/20 15:25 Aerobic Blood Culture - Preliminary Blood - Venous - Lab Draw NO GROWTH AFTER 2 DAYS Anaerobic Blood Culture - Preliminary Staphylococcus Aureus 10/24/20 15:33 Aerobic Blood Culture - Preliminary Blood - Venous NO GROWTH AFTER 2 DAYS Anaerobic Blood Culture - Preliminary Gram Positive Cocci 10/25/20 15:32 Aerobic Blood Culture - Preliminary Blood - Venous - Lab Draw NO GROWTH AFTER 1 DAY Anaerobic Blood Culture - Preliminary NO GROWTH AFTER 1 DAY 10/25/20 15:22 Aerobic Blood Culture - Preliminary Blood - Venous NO GROWTH AFTER 1 DAY Anaerobic Blood Culture - Preliminary NO GROWTH AFTER 1 DAY 10/24/20 14:22 Urine Culture - Final Urine, Clean Catch MIXED ISIDORO SUGGESTIVE OF CONTAMINATION. Sepsis Event Note - Evaluation Sepsis Screening Result: No Definite Risk - Focused Exam Vital Signs: Vital Signs Temp Pulse Resp BP Pulse Ox Pulse Ox 10/27/20 11:37 149/98 H 10/27/20 11:31 53 L 149/98 H 10/27/20 08:02 97 10/27/20 07:19 97.3 F 47 L 20 150/76 H 98 10/27/20 05:16 98.2 F 45 L 12 129/66 95 - Problem List Review Problem List Initiated/Reviewed/Updated: Yes - My Orders Last 24 Hours: My Active Orders 10/26/20 17:01 Ibuprofen [Motrin] 400 mg PO Q8H PRN - Assessment Assessment:: Bactremia/Sepsis -10/23 Blood culture: Positive for Staph Aureus, sensitive to Vancomycin, Levaquin, Bactrim, clindamycin -10/25 Blood culture: negative at 24 hours -Supsected Dental source, CT Head results pending -WBC 9.8 -->5.5 -->4.4 -Vancomycin, Zosyn d/c on 10/26 -Intermittent subjective chills, afebrile Anemia -Hgb 15.1 --> 13.6 -->12 -MCV 91 -Suspect dilutional, no active losses Thrombocytopenia -Plt 146 -->124 -->94 ->87 -INR 1.1 no evidence of DIC -On Eliquis, ASA held Bradycardic -sinus bradycardia on Tele -HR in 40-50's, asymptomatic -On BB as OP -No evidence of Heart Block Hypokalemia -K 3.2 DM II -Well controlled, on SSI Urinary Retention -Cuevas DC on 10/26 -On Finasteride, Tamsulosin as OP -No obstructive uropathy/GOYO HTN JOSE F -On CPAP QHS - Plan Plan:: Assessment: Plan: -Vancomycin, plan to start on Keflex per pharmacy recommendations given dental source and negative blood cultures x 24 hrs -PRN staight cath for urinary retention -Hold ASA given thrombocytopenia -Echo completed results pending, doubt endocarditis based on clinical condition -CT Head results are pending -Diabetic diet. Continue home medication glipizide 5 mg twice daily and Januvia. Metformin is on hold. Insulin sliding scale. Adjust insulin based on sugar levels -Continue losartan 12.5 mg daily -K replacement per protocol - Continue home Flomax and finasteride. -DVT prophylaxis: Eliquis -CODE STATUS: DNR/DNI -Case management to help arrange Oral-Maxillofacial surgical consultation as outpatient Dispo: Pending PT evaluation, may need ongoing PT at time of discharge. Will be able to dc on PO Abx.
[2020-10-27] MEDS ORDERED: Cephalexin 500 MG Cap PO SCH (12:00)
[2020-10-27] MEDS: Tamsulosin 0.4 MG Cap.ER PO SCH (18:21)
[2020-10-27] MEDS: BIMATOPROST EYEBOTH SCH (18:22)
[2020-10-27] MEDS: Cephalexin 500 MG Cap PO SCH (21:15)
[2020-10-27] MEDS: Melatonin 3 MG Tab PO SCH (21:15)
[2020-10-28] MEDS: glipiZIDE 5 MG Tab PO SCH (06:33)
[2020-10-28] MEDS: Insulin Lispro 100 UNIT/ML 10 ML Vial SUBCUT SCH ×2 (07:48→11:43)
--- NOTE | 2020-10-28 08:32 | PCM.DCSUM1 ---
Discharge Summary - Hospital Course Free Text/Narrative:: DC Diagnosis: Bacteremia/Sepsis Dental Abscess Anemia Thrombocytopenia Bradycardia JOSE F DM II Urinary Retention HPI: Patient is an 80-year-old male with a history of diabetes and high blood pressure who was brought to the ER due to fever, generalized weakness and diarrhea. Patient is a poor historian. Patient started to have generalized weakness this morning. He is so weak so that he is not able to stand and walk. Normally he can walk with a walker. He was found to have increased temperature. He has been having diarrhea for 2 days with loose stool v 4 a day. He also report that he urinates more frequently but denies dysuria. He had his teeth cleaned 2 days ago and he started amoxicillin last night for scheduled a procedure to pull all of his teeth out of the top portion of his jaw to have a plate placed. He denies teeth infection but he did not get much sleep last night due to the pain in his teeth. In the ER, he was found to have temperature up to 39.6, tachypnea up to 30, lactic acid 1.9 and CRP 8.4. Hospital course: Admitted secondary to generalized weakness diarrhea and concern for sepsis at time of presentation patient found to have elevated CRP, was febrile. The patient was found to have staph aureus in his a blood cultures from 10/24/2020. The patient was empirically treated with vancomycin since time of admission. On 10/27/2020 given repeat blood cultures after 48 hours patient was transitioned to Keflex 500 mg p.o. 3 times daily. Patient afebrile with no evidence of worsening bacteremia or sepsis. The patient to coming in did have a dental procedure and it appears that the dentist had informed him previously that he needed to be seen by maxillofacial surgery for extraction of his upper teeth. At time of discharge case management as well as the patient's have been in contact with the maxillofacial surgeon in [place] to schedule him an appointment for dental extraction. The patient's hospitalization he did have some mild urinary retention requiring straight catheterization. Patient is able to void however he voids approximately 100 cc per attempt at urinating. Diagnosis: Stroke: No - Discharge Data Discharge Date: 10/28/20 Discharge Disposition: DC/Tfer to Inpt Rehab Fac 62 Condition: Good - Referral to Home Health Primary Care Physician: Mandeep Lo MD - Patient Summary/Data Consults: Consultations 10/25/20 13:56 Consult to Occupational Therapy [OT Evaluation and Treatment] [CONS] Routine Consult to Physical Therapy [PT Evaluation and Treatment] [CONS] Routine - Patient Instructions Diet: Diabetic Diet - Discharge Plan *PRESCRIPTION DRUG MONITORING PROGRAM REVIEWED*: No *COPY OF PRESCRIPTION DRUG MONITORING REPORT IN PATIENT GREGG: No Prescriptions/Med Rec: cephALEXin [Keflex] 500 mg PO TID #60 cap Home Medications: Home Meds Acetaminophen 500 mg PO BID 10/24/20 [History] Albuterol Sulfate [Albuterol Sulfate HFA] 2 puff INH Q4HR PRN 10/24/20 [History] Apixaban [Eliquis] 5 mg PO BID 10/24/20 [History] Aspirin [Ecotrin EC] 81 mg PO DAILY 10/24/20 [History] Bimatoprost [LUMIGAN 0.01% Ophth Soln] 1 drop EYEBOTH DAILY 10/24/20 [History] Ezetimibe 10 mg PO DAILY 10/24/20 [History] Finasteride 5 mg PO DAILY 10/24/20 [History] Fish Oil/[place]-3 Fatty Acids [Fish Oil 1,000 MG] 1 tab PO DAILY 10/24/20 [History] Losartan [Cozaar] 12.5 mg PO DAILY 10/24/20 [History] Magnesium Carb/Aluminum Hydrox [Antacid Ex-Str Tablet Chew] 1 tab PO DAILY 10/24/20 [History] Melatonin 10 mg PO QPM 10/24/20 [History] Metoprolol Succinate 50 mg PO DAILY 10/24/20 [History] Potassium Chloride 10 meq PO DAILY 10/24/20 [History] Pravastatin [Pravachol] 20 mg PO BID 10/24/20 [History] Sennosides/Docusate Sodium [Senna Plus Tablet] 1 tab PO BID PRN 10/24/20 [History] SitaGLIPtin [Januvia] 100 mg PO DAILY 10/24/20 [History] Tamsulosin [Flomax] 0.4 mg PO DAILY 10/24/20 [History] Tiotropium [Spiriva HandiHaler] 1 inh INH DAILY 10/24/20 [History] Ubidecarenone [Coq-10] 100 mg PO BID 10/24/20 [History] Vit C/E/Zn/Coppr/Lutein/Zeaxan [Preservision Areds 2 Softgel] 1 tab PO BID 10/24/20 [History] metFORMIN [Glucophage] 500 mg PO BID 10/24/20 [History] glipiZIDE [Glucotrol] 5 mg PO BID 10/25/20 [History] cephALEXin [Keflex] 500 mg PO TID #60 cap 10/28/20 [Rx] Oxygen Therapy Mode: CPAP (QHS) Forms: ED Department Discharge Referrals: Mandeep Lo MD [Primary Care Provider] - - Discharge Summary/Plan Comment DC Time >30 min.: Yes - Review of Systems General: Reports: No Symptoms HEENT: Reports: No Symptoms Pulmonary: Reports: No Symptoms Cardiovascular: Reports: No Symptoms Gastrointestinal: Reports: No Symptoms Genitourinary: Reports: No Symptoms Musculoskeletal: Reports: No Symptoms Skin: Reports: No Symptoms Neurological: Reports: No Symptoms Psychiatric: Reports: No Symptoms - Patient Data Vitals - Most Recent: Last Vital Signs Temp 98.2 F 10/28/20 01:31 Pulse 59 L 10/28/20 01:31 Resp 16 10/28/20 01:31 BP 130/72 10/28/20 01:31 Pulse Ox 93 L 10/28/20 05:55 Weight - Most Recent: 165 lb 1.6 oz I&O - Last 24 hours: Intake & Output 10/27/20 10/28/20 10/28/20 22:59 06:59 14:59 Intake Total 1495 1275 Output Total 1300 1950 Balance 195 -675 Lab Results - Last 24 hrs: Laboratory Results - last 24 hr 10/27/20 10/27/20 10/27/20 Range/Units 11:29 17:00 22:11 WBC (4.23-9.07) K/mm3 RBC (4.63-6.08) M/mm3 Hgb (13.7-17.5) gm/dl Hct (40.1-51.0) % MCV (79.0-92.2) fl MCH (25.7-32.2) pg MCHC (32.2-35.5) g/dl RDW Std Deviation (35.1-43.9) fL Plt Count (163-337) K/mm3 MPV (9.4-12.3) fl Neut % (Auto) (34.0-67.9) % Lymph % (Auto) (21.8-53.1) % [place] % (Auto) (5.3-12.2) % Eos % (Auto) (0.8-7.0) Baso % (Auto) (0.1-1.2) % Neut # (Auto) (1.78-5.38) K/mm3 Lymph # (Auto) (1.32-3.57) K/mm3 [place] # (Auto) (0.30-0.82) K/mm3 Eos # (Auto) (0.04-0.54) K/mm3 Baso # (Auto) (0.01-0.08) K/mm3 Sodium (136-145) mEq/L Potassium (3.5-5.1) mEq/L Chloride (98-107) mEq/L Carbon Dioxide (21-32) mEq/L Anion Gap (5-15) BUN (7-18) mg/dL Creatinine (0.7-1.3) mg/dL Est Cr Clr Drug Dosing mL/min Estimated GFR (MDRD) (>60) mL/min BUN/Creatinine Ratio (14-18) Glucose (83-115) mg/dL POC Glucose 106 H 110 H 126 H (70-99) mg/dL Calcium (8.5-10.1) mg/dL Total Bilirubin (0.2-1.0) mg/dL AST (15-37) U/L ALT (16-63) U/L Alkaline Phosphatase (46-116) U/L Total Protein (6.4-8.2) g/dl Albumin (3.4-5.0) g/dl Globulin gm/dL Albumin/Globulin Ratio (1-2) SARS-CoV-2 RNA ([facility]) (NEGATIVE) 10/28/20 10/28/20 10/28/20 Range/Units 05:58 05:58 06:31 WBC 5.75 (4.23-9.07) K/mm3 RBC 3.76 L (4.63-6.08) M/mm3 Hgb 11.3 L (13.7-17.5) gm/dl Hct 34.3 L (40.1-51.0) % MCV 91.2 (79.0-92.2) fl MCH 30.1 (25.7-32.2) pg MCHC 32.9 (32.2-35.5) g/dl RDW Std Deviation 48.2 H (35.1-43.9) fL Plt Count 106 L (163-337) K/mm3 MPV 10.3 (9.4-12.3) fl Neut % (Auto) 67.7 (34.0-67.9) % Lymph % (Auto) 15.7 L (21.8-53.1) % [place] % (Auto) 14.1 H (5.3-12.2) % Eos % (Auto) 2.1 (0.8-7.0) Baso % (Auto) 0.2 (0.1-1.2) % Neut # (Auto) 3.90 (1.78-5.38) K/mm3 Lymph # (Auto) 0.90 L (1.32-3.57) K/mm3 [place] # (Auto) 0.81 (0.30-0.82) K/mm3 Eos # (Auto) 0.12 (0.04-0.54) K/mm3 Baso # (Auto) 0.01 (0.01-0.08) K/mm3 Sodium 144 (136-145) mEq/L Potassium 3.4 L (3.5-5.1) mEq/L Chloride 109 H (98-107) mEq/L Carbon Dioxide 22 (21-32) mEq/L Anion Gap 16.4 H (5-15) BUN 21 H (7-18) mg/dL Creatinine 1.1 (0.7-1.3) mg/dL Est Cr Clr Drug Dosing 49.24 mL/min Estimated GFR (MDRD) > 60 (>60) mL/min BUN/Creatinine Ratio 19.1 H (14-18) Glucose 97 (83-115) mg/dL POC Glucose 94 (70-99) mg/dL Calcium 8.1 L (8.5-10.1) mg/dL Total Bilirubin 0.7 (0.2-1.0) mg/dL AST 37 (15-37) U/L ALT 51 (16-63) U/L Alkaline Phosphatase 73 (46-116) U/L Total Protein 6.3 L (6.4-8.2) g/dl Albumin 2.6 L (3.4-5.0) g/dl Globulin 3.7 gm/dL Albumin/Globulin Ratio 0.7 L (1-2) SARS-CoV-2 RNA ([facility]MA) (NEGATIVE) 10/28/20 Range/Units 07:30 WBC (4.23-9.07) K/mm3 RBC (4.63-6.08) M/mm3 Hgb (13.7-17.5) gm/dl Hct (40.1-51.0) % MCV (79.0-92.2) fl MCH (25.7-32.2) pg MCHC (32.2-35.5) g/dl RDW Std Deviation (35.1-43.9) fL Plt Count (163-337) K/mm3 MPV (9.4-12.3) fl Neut % (Auto) (34.0-67.9) % Lymph % (Auto) (21.8-53.1) % [place] % (Auto) (5.3-12.2) % Eos % (Auto) (0.8-7.0) Baso % (Auto) (0.1-1.2) % Neut # (Auto) (1.78-5.38) K/mm3 Lymph # (Auto) (1.32-3.57) K/mm3 [place] # (Auto) (0.30-0.82) K/mm3 Eos # (Auto) (0.04-0.54) K/mm3 Baso # (Auto) (0.01-0.08) K/mm3 Sodium (136-145) mEq/L Potassium (3.5-5.1) mEq/L Chloride (98-107) mEq/L Carbon Dioxide (21-32) mEq/L Anion Gap (5-15) BUN (7-18) mg/dL Creatinine (0.7-1.3) mg/dL Est Cr Clr Drug Dosing mL/min Estimated GFR (MDRD) (>60) mL/min BUN/Creatinine Ratio (14-18) Glucose (83-115) mg/dL POC Glucose (70-99) mg/dL Calcium (8.5-10.1) mg/dL Total Bilirubin (0.2-1.0) mg/dL AST (15-37) U/L ALT (16-63) U/L Alkaline Phosphatase (46-116) U/L Total Protein (6.4-8.2) g/dl Albumin (3.4-5.0) g/dl Globulin gm/dL Albumin/Globulin Ratio (1-2) SARS-CoV-2 RNA ([facility]) Negative (NEGATIVE) [facility] Results - Last 24 hrs: Microbiology 10/25/20 15:32 Aerobic Blood Culture - Preliminary Blood - Venous - Lab Draw NO GROWTH AFTER 2 DAYS Anaerobic Blood Culture - Preliminary NO GROWTH AFTER 2 DAYS 10/25/20 15:22 Aerobic Blood Culture - Preliminary Blood - Venous NO GROWTH AFTER 2 DAYS Anaerobic Blood Culture - Preliminary NO GROWTH AFTER 2 DAYS 10/24/20 15:33 Aerobic Blood Culture - Preliminary Blood - Venous NO GROWTH AFTER 3 DAYS Anaerobic Blood Culture - Preliminary Gram Positive Cocci 10/24/20 15:25 Aerobic Blood Culture - Preliminary Blood - Venous - Lab Draw NO GROWTH AFTER 3 DAYS Anaerobic Blood Culture - Preliminary Staphylococcus Aureus Med Orders - Current: Current Medications Acetaminophen (Acetaminophen 650 Mg Supp) 650 mg RECTAL Q6H PRN PRN Reason: Pain (mild 1-3) Albuterol (Albuterol 6.7 Gm Inhaler) 0 gm INH Q4H PRN PRN Reason: Shortness of Breath Albuterol/Ipratropium (Albuterol/Ipratropium 3.0-0.5 Mg/3 Ml Neb Soln) 3 ml NEB Q4H PRN PRN Reason: Shortness Of Breath/wheezing Alogliptin Benzoate (Alogliptin 12.5 Mg Tab) 12.5 mg PO DAILY [facility] Last Admin: 10/27/20 11:31 Dose: 12.5 mg Documented by: Apixaban (Apixaban 5 Mg Tab) 5 mg PO BID [facility] Last Admin: 10/27/20 21:16 Dose: 5 mg Documented by: Aspirin (Aspirin 81 Mg Tab.Ec) 81 mg PO DAILY [facility] Last Admin: 10/27/20 11:37 Dose: Not Given Documented by: Cephalexin (Cephalexin 500 Mg Cap) 500 mg PO TID [facility] Last Admin: 10/27/20 21:15 Dose: 500 mg Documented by: Ezetimibe (Ezetimibe 10 Mg Tab) 10 mg PO DAILY [facility] Last Admin: 10/27/20 11:37 Dose: 10 mg Documented by: Finasteride (Finasteride 5 Mg Tab) 5 mg PO DAILY [facility] Last Admin: 10/27/20 11:30 Dose: 5 mg Documented by: Glipizide (Glipizide 5 Mg Tab) 5 mg PO BIDMEALS [facility] Last Admin: 10/28/20 06:33 Dose: 5 mg Documented by: Hydralazine HCl (Hydralazine 20 Mg/Ml Sdv) 10 mg IVPUSH Q4H PRN PRN Reason: Hypertension Sodium Chloride (Normal Saline) 1,000 mls @ 75 mls/hr IV ASDIRECTED [facility] Last Admin: 10/27/20 18:29 Dose: 75 mls/hr Documented by: Promethazine HCl 12.5 mg/ (Sodium Chloride) 50.5 mls @ 100 mls/hr IV Q6H PRN PRN Reason: Nausea/Vomiting Ibuprofen (Ibuprofen 400 Mg Tab) 400 mg PO Q8H PRN PRN Reason: Fever Insulin Human Lispro (Insulin Lispro 100 Unit/Ml) 0 unit SUBCUT QIDACANDBED [facility]; Protocol Last Admin: 10/28/20 07:48 Dose: Not Given Documented by: Losartan Potassium (Losartan 25 Mg Tab) 12.5 mg PO DAILY [facility] Last Admin: 10/27/20 11:37 Dose: 12.5 mg Documented by: Melatonin (Melatonin 3 Mg Tab) 9 mg PO BEDTIME [facility] Last Admin: 10/27/20 21:15 Dose: 9 mg Documented by: Metoprolol Succinate (Metoprolol Succinate 50 Mg Tab.Er) 50 mg PO DAILY [facility] Last Admin: 10/27/20 11:31 Dose: 50 mg Documented by: Omkar (Bimatoprost () Oph *Own Med) 1 drop EYEBOTH QPM [facility] Last Admin: 10/27/20 18:22 Dose: 1 drop Documented by: Tiotropium (Spiriva) 18 Mcg Inhaler * Own Med 0 inh INH DAILY [facility] Last Admin: 10/27/20 08:02 Dose: 1 inh Documented by: Pravastatin Sodium (Pravastatin 20 Mg Tab) 20 mg PO BID [facility] Last Admin: 10/27/20 21:16 Dose: 20 mg Documented by: Sodium Chloride (Sodium Chloride 0.9% 10 Ml Syringe) 10 ml FLUSH ASDIRECTED PRN PRN Reason: Keep Vein Open Last Admin: 10/24/20 14:52 Dose: 10 ml Documented by: Tamsulosin HCl (Tamsulosin 0.4 Mg Cap.Er) 0.4 mg PO QPM [facility] Last Admin: 10/27/20 18:21 Dose: 0.4 mg Documented by: Discontinued Medications Acetaminophen (Acetaminophen 325 Mg Tab) 650 mg PO NOW ONE Stop: 10/24/20 14:48 Last Admin: 10/24/20 14:51 Dose: 650 mg Documented by: Albuterol (Albuterol 6.7 Gm Inhaler) 0 gm INH Q4HR PRN PRN Reason: Shortness of Breath Apixaban (Apixaban 5 Mg Tab) 5 mg PO BID [facility] Last Admin: 10/24/20 23:00 Dose: Not Given Documented by: Apixaban (Apixaban 5 Mg Tab Own Med) 5 mg PO BID [facility] Last Admin: 10/25/20 20:58 Dose: 5 mg Documented by: Aspirin (Aspirin 81 Mg Tab.Ec) 81 mg PO DAILY [facility] Last Admin: 10/25/20 10:28 Dose: Not Given Documented by: Aspirin (Aspirin 81 Mg Tab.Ec Own Med) 81 mg PO DAILY [facility] Last Admin: 10/25/20 09:20 Dose: 81 mg Documented by: Cephalexin (Cephalexin 500 Mg Cap) 500 mg PO Q8H [facility] Last Admin: 10/27/20 14:22 Dose: 500 mg Documented by: Ezetimibe (Ezetimibe 10 Mg Tab Own Med) 10 mg PO DAILY [facility] Enoxaparin Sodium (Enoxaparin 40 Mg/0.4 Ml Syringe) 40 mg SUBCUT DAILY [facility] Last Admin: 10/24/20 23:00 Dose: Not Given Documented by: Finasteride (Finasteride 5 Mg Tab Own Med) 5 mg PO DAILY [facility] Last Admin: 10/25/20 09:13 Dose: 5 mg Documented by: Glipizide (Glipizide 5 Mg Tab.Er) 5 mg PO BID [facility] Last Admin: 10/25/20 10:28 Dose: Not Given Documented by: Glipizide (Glipizide 5 Mg Tab Own Med) 5 mg PO BIDMEALS [facility] Last Admin: 10/26/20 06:40 Dose: 5 mg Documented by: Sodium Chloride (Normal Saline) 1,000 mls @ 999 mls/hr IV BOLUS ONE; Protocol Stop: 10/24/20 15:34 Last Admin: 10/24/20 14:52 Dose: 999 mls/hr Documented by: Piperacillin Sod/Tazobactam (Sod 4.5 gm/ Sodium Chloride) 100 mls @ 200 mls/hr IV ONETIME ONE Stop: 10/24/20 17:58 Last Admin: 10/24/20 17:43 Dose: 200 mls/hr Documented by: Sodium Chloride (Normal Saline) 1,000 mls @ 500 mls/hr IV ONETIME ONE Stop: 10/24/20 19:28 Last Admin: 10/24/20 17:43 Dose: 500 mls/hr Documented by: Piperacillin Sod/Tazobactam (Sod 4.5 gm/ Sodium Chloride) 100 mls @ 25 mls/hr IV Q8H [facility] Last Admin: 10/26/20 01:21 Dose: 25 mls/hr Documented by: Vancomycin HCl 1 gm/ Sodium (Chloride) 250 mls @ 250 mls/hr IV Q12H [facility] Last Admin: 10/27/20 03:29 Dose: 250 mls/hr Documented by: Magnesium Sulfate 4 gm/ Premix 0 mls @ 12.5 mls/hr IV ONETIME ONE Stop: 10/25/20 16:51 Last Admin: 10/25/20 18:09 Dose: Not Given Documented by: Magnesium Sulfate (Magnesium Sulfate In Water 2 Gm/50 Ml) 2 gm in 50 mls @ 25 mls/hr IV ONETIME ONE Stop: 10/25/20 18:59 Last Admin: 10/25/20 17:31 Dose: 25 mls/hr Documented by: Ibuprofen (Ibuprofen 400 Mg Tab) 400 mg PO ONETIME ONE Stop: 10/26/20 14:52 Last Admin: 10/26/20 15:00 Dose: 400 mg Documented by: Insulin Human Lispro (Insulin Lispro 100 Units/Ml 3 Ml Vial) 0 unit SUBCUT QIDACANDBED [facility]; Protocol Last Admin: 10/25/20 10:28 Dose: Not Given Documented by: Ketorolac Tromethamine (Ketorolac 30 Mg/Ml Sdv) 30 mg IVPUSH ONETIME ONE Stop: 10/24/20 16:13 Last Admin: 10/24/20 16:19 Dose: 30 mg Documented by: Losartan Potassium (Losartan 25 Mg Tab) 12.5 mg PO DAILY [facility] Last Admin: 10/25/20 09:14 Dose: 12.5 mg Documented by: Losartan Potassium (Losartan 25 Mg Tab Ptom) 0 mg PO DAILY [facility] Last Admin: 10/25/20 10:22 Dose: Not Given Documented by: Melatonin (Melatonin 3 Mg Tab) 9 mg PO QPM [facility] Metoprolol Succinate (Metoprolol Succinate 50 Mg Tab.Er Own Med) 50 mg PO DAILY [facility] Last Admin: 10/25/20 09:18 Dose: 50 mg Documented by: Morphine Sulfate (Morphine 2 Mg/Ml Syringe) 2 mg IVPUSH Q4H PRN PRN Reason: Pain (severe 7-10) Stop: 10/25/20 18:16 Non-Formulary Medication (Pravastatin) 40 mg PO DAILY [facility] Januvia (Sitagliptan () 100mg Own Med) 0 each PO DAILY [facility] Last Admin: 10/25/20 10:43 Dose: 1 each Documented by: Potassium Chloride (Potassium Chloride 20 Meq Tab.Er) 40 meq PO ONETIME ONE Stop: 10/24/20 19:06 Last Admin: 10/24/20 20:05 Dose: 40 meq Documented by: Potassium Chloride (Potassium Chloride 10 Meq Cap Own Med) 0 meq PO ONETIME ONE Stop: 10/25/20 09:01 Last Admin: 10/25/20 09:11 Dose: 40 meq Documented by: Potassium Chloride (Potassium Chloride 20 Meq Tab.Er) 40 meq PO ONETIME ONE Stop: 10/26/20 11:00 Last Admin: 10/26/20 11:07 Dose: 40 meq Documented by: Pravastatin Sodium (Pravastatin 20 Mg Tab Own Med) 20 mg PO BID [facility] Last Admin: 10/25/20 20:58 Dose: 20 mg Documented by: Tamsulosin HCl (Tamsulosin 0.4 Mg Cap.Er Own Med) 0.4 mg PO QPM [facility] Last Admin: 10/25/20 17:53 Dose: 0.4 mg Documented by: Vancomycin HCl (Pharmacy To Dose - Vancomycin) 1 dose .XX ASDIRECTED PRN PRN Reason: RX TO DOSE VANCO - Exam General: Reports: Alert, Oriented HEENT: Reports: Mucous Membr. Moist/[place] Neck: Reports: Supple Lungs: Reports: Clear to Auscultation, Normal Respiratory Effort Cardiovascular: Reports: Regular Rate, Regular Rhythm GI/Abdominal Exam: Normal Bowel Sounds, Soft, Non-Tender Extremities: Normal Inspection Skin: Reports: Warm, Dry, Intact Neurological: Reports: No New Focal Deficit
[2020-10-28] MEDS: Metoprolol Succinate 50 MG Tab.ER PO SCH (08:39)
[2020-10-28] MEDS: Pravastatin 20 MG Tab PO SCH (08:40)
[2020-10-28] MEDS: Losartan 25 MG Tab PO SCH (08:40)
[2020-10-28] MEDS: Ezetimibe 10 MG Tab PO SCH (08:40)
[2020-10-28] MEDS: Cephalexin 500 MG Cap PO SCH (08:42)
[2020-10-28] MEDS: Finasteride 5 MG Tab PO SCH (08:42)
[2020-10-28] MEDS: Apixaban 5 MG Tab PO SCH (08:42)
[2020-10-28] MEDS: Aspirin 81 MG Tab.EC PO SCH (08:42)
[2020-10-28] MEDS: TIOTROPIUM 18 MCG INH SCH (08:51)
[2020-10-28 13:29] VITALS: BP 119/67; PULSE 53
== END 2020-10-28 13:25 | DRG 872 ==
LOC: JD.ED 14:03 → JD.MS 17:56 → OBSVTOIN 10-25 13:57
PROVIDERS: ADMIT Internal Medicine; ATTEND Internal Medicine
DX: A41.9 Sepsis, unspecified organism (principal); A41.01 Sepsis due to Methicillin susceptible Staphylococcus aureus; R53.1 Weakness; R19.7 Diarrhea, unspecified; D64.9 Anemia, unspecified; D69.6 Thrombocytopenia, unspecified; I10 Essential (primary) hypertension; D72.829 Elevated white blood cell count, unspecified; D47.3 Essential (hemorrhagic) thrombocythemia; G47.33 Obstructive sleep apnea (adult) (pediatric); H35.30 Unspecified macular degeneration; E11.9 Type 2 diabetes mellitus without complications; Z66 Do not resuscitate; R33.9 Retention of urine, unspecified; G47.30 Sleep apnea, unspecified; K04.7 Periapical abscess without sinus; E78.00 Pure hypercholesterolemia, unspecified; I25.10 Atherosclerotic heart disease of native coronary artery without angina pectoris; E87.6 Hypokalemia; J44.9 Chronic obstructive pulmonary disease, unspecified; K21.9 Gastro-esophageal reflux disease without esophagitis; Z88.6 Allergy status to analgesic agent; N40.1 Benign prostatic hyperplasia with lower urinary tract symptoms; R33.8 Other retention of urine; Z79.01 Long term (current) use of anticoagulants; Z96.659 Presence of unspecified artificial knee joint; Z96.619 Presence of unspecified artificial shoulder joint; Z87.891 Personal history of nicotine dependence; Z20.822 Contact with and (suspected) exposure to COVID-19; Z95.2 Presence of prosthetic heart valve; Z79.82 Long term (current) use of aspirin; Z79.899 Other long term (current) drug therapy; Z79.84 Long term (current) use of oral hypoglycemic drugs; Z91.048 Other nonmedicinal substance allergy status; Z88.8 Allergy status to other drugs, medicaments and biological substances; Z95.1 Presence of aortocoronary bypass graft; Z86.73 Personal history of transient ischemic attack (TIA), and cerebral infarction without residual deficits; Z85.51 Personal history of malignant neoplasm of bladder; Z98.49 Cataract extraction status, unspecified eye; Z90.89 Acquired absence of other organs; E86.0 Dehydration
CPT/HCPCS: 0240U; 36415; 51701; 51702; 51798; 70450; 71046; 80053; 81001; 82947; 83605; 83735; 84484; 85007; 85025; 85027; 85610; 86140; 87040; 87086; 87641; 93005; 93306; 94640; 94760; 94762; 96365; 96375; 97162; 97165; 99285; 96366; 96376; 99284; A9270-GY; G0378; J1815-GY; J1885; J2543; J3370; J3475; J7030; J7050; U0002

== ENCOUNTER 2022-06-23 09:57 | Day surgery (SDC) | payer MEDICARE, OTHER ==
[~2022-06-23 09:57] MED LIST: Lactated Ringers 1,000 ML IV SCH; Lidocaine 1%/Sod Bicarbonate in NS 8.4% 1 ML Syringe IDERM PRN; Sodium Chloride 0.9% 10 ML Syringe FLUSH PRN; Sodium Chloride 0.9% 10 ML Syringe FLUSH SCH
[2022-06-23] MEDS ORDERED: Propofol 200 MG/20 ML SDV ONE (10:43)
[2022-06-23] MEDS ORDERED: fentaNYL 100 MCG/2 ML SDV ONE (10:43)
[2022-06-23] MEDS ORDERED: Lidocaine 1% 4 ML ONE (10:49)
[2022-06-23] MEDS ORDERED: Metoprolol Tartrate 5 MG/5 ML SDV ONE (11:10)
[2022-06-23] MEDS ORDERED: Ondansetron 4 MG/2 ML SDV ONE (11:50)
[2022-06-23 13:06] VITALS: BP 144/77; PULSE 74
== END 2022-06-23 13:00 | disposition home or self-care (01) ==
LOC: JD.SDS 09:57
PROVIDERS: ATTEND Surgery
DX: K29.70 Gastritis, unspecified, without bleeding (principal); K29.80 Duodenitis without bleeding; K21.9 Gastro-esophageal reflux disease without esophagitis; K57.30 Diverticulosis of large intestine without perforation or abscess without bleeding; K31.89 Other diseases of stomach and duodenum; I48.0 Paroxysmal atrial fibrillation; G47.33 Obstructive sleep apnea (adult) (pediatric); J44.9 Chronic obstructive pulmonary disease, unspecified; I25.10 Atherosclerotic heart disease of native coronary artery without angina pectoris; K58.9 Irritable bowel syndrome, unspecified; E11.9 Type 2 diabetes mellitus without complications; I11.0 Hypertensive heart disease with heart failure; I50.22 Chronic systolic (congestive) heart failure; D64.9 Anemia, unspecified; E78.00 Pure hypercholesterolemia, unspecified; M19.90 Unspecified osteoarthritis, unspecified site; Z98.890 Other specified postprocedural states; Z79.899 Other long term (current) drug therapy; Z91.048 Other nonmedicinal substance allergy status; Z88.8 Allergy status to other drugs, medicaments and biological substances; Z88.1 Allergy status to other antibiotic agents; Z87.891 Personal history of nicotine dependence
CPT/HCPCS: 00813; 82947; J2405; J2704; J3010; J3490; J7120

== ENCOUNTER 2022-07-14 21:17 | Emergency (ER) | payer MEDICARE, OTHER ==
[2022-07-14] MEDS ORDERED: Sodium Chloride 0.9% 10 ML Syringe FLUSH PRN (21:37)
[2022-07-14 22:42] LABS: CORONAVIRUS COVID-19 NAA NEGATIVE (NEGATIVE)
[2022-07-15] MEDS ORDERED: Acetaminophen 325 MG Tab PO ONE (00:25)
[2022-07-15 02:37] VITALS: PULSE 88
[2022-07-15 02:38] VITALS: BP 175/90
== END 2022-07-15 02:00 | disposition home or self-care (01) ==
LOC: JD.ED 21:17
DX: R53.1 Weakness (principal); R50.9 Fever, unspecified; I25.10 Atherosclerotic heart disease of native coronary artery without angina pectoris; J44.9 Chronic obstructive pulmonary disease, unspecified; I10 Essential (primary) hypertension; E11.9 Type 2 diabetes mellitus without complications; Z91.048 Other nonmedicinal substance allergy status; Z88.8 Allergy status to other drugs, medicaments and biological substances; Z79.899 Other long term (current) drug therapy; Z79.01 Long term (current) use of anticoagulants; Z87.891 Personal history of nicotine dependence; Z20.822 Contact with and (suspected) exposure to COVID-19
CPT/HCPCS: 0240U; 36415; 70450; 71045; 80053; 81001; 83605; 83735; 83880; 84443; 84484; 85025; 86140; 87040; 99285; A9270; J3490; 99284

== ENCOUNTER 2022-07-18 20:31 | Emergency (ER) | payer MEDICARE, OTHER ==
[2022-07-18 20:55] VITALS: BP 146/63
[2022-07-18] MEDS ORDERED: Sodium Chloride 0.9% 1,000 ML IV ONE (20:56)
[2022-07-18] MEDS ORDERED: Cefdinir 300 MG Cap PO ONE (23:57)
[2022-07-19 00:24] VITALS: PULSE 67
== END 2022-07-19 01:05 | disposition home or self-care (01) ==
LOC: JD.ED 20:31
DX: S06.0X1A Concussion with loss of consciousness of 30 minutes or less, initial encounter (principal); S40.021A Contusion of right upper arm, initial encounter; R82.81 Pyuria; R91.8 Other nonspecific abnormal finding of lung field; I25.10 Atherosclerotic heart disease of native coronary artery without angina pectoris; E78.00 Pure hypercholesterolemia, unspecified; I10 Essential (primary) hypertension; J44.9 Chronic obstructive pulmonary disease, unspecified; E11.9 Type 2 diabetes mellitus without complications; K21.9 Gastro-esophageal reflux disease without esophagitis; M19.90 Unspecified osteoarthritis, unspecified site; Z86.73 Personal history of transient ischemic attack (TIA), and cerebral infarction without residual deficits; Z88.8 Allergy status to other drugs, medicaments and biological substances; Z79.01 Long term (current) use of anticoagulants; Z79.899 Other long term (current) drug therapy; Z87.891 Personal history of nicotine dependence; W18.09XA Striking against other object with subsequent fall, initial encounter
CPT/HCPCS: 36415; 70450; 71045; 72170; 73030; 80053; 81001; 85025; 85610; 85730; 86850; 86900; 86901; 93005; 96360; 96361; 99284; A9270; J7030

== ENCOUNTER 2022-09-14 19:56 | Emergency (ER) | payer MEDICARE, OTHER ==
[2022-09-14 20:09] VITALS: BP 139/72; PULSE 65
[2022-09-14] MEDS ORDERED: Diphtheria,Pertussis(Acell),Tetanus Vaccine 0.5 ML Syringe IM ONE (20:58)
== END 2022-09-14 21:08 | disposition home or self-care (01) ==
LOC: JD.ED 19:56
DX: S51.812A Laceration without foreign body of left forearm, initial encounter (principal); K62.5 Hemorrhage of anus and rectum; K62.4 Stenosis of anus and rectum; I25.10 Atherosclerotic heart disease of native coronary artery without angina pectoris; E78.00 Pure hypercholesterolemia, unspecified; I10 Essential (primary) hypertension; J44.9 Chronic obstructive pulmonary disease, unspecified; E11.9 Type 2 diabetes mellitus without complications; Z86.73 Personal history of transient ischemic attack (TIA), and cerebral infarction without residual deficits; Z91.048 Other nonmedicinal substance allergy status; Z88.8 Allergy status to other drugs, medicaments and biological substances; Z79.01 Long term (current) use of anticoagulants; Z79.899 Other long term (current) drug therapy; Z87.891 Personal history of nicotine dependence; Z23 Encounter for immunization; W19.XXXA Unspecified fall, initial encounter; Y92.009 Unspecified place in unspecified non-institutional (private) residence as the place of occurrence of the external cause
CPT/HCPCS: 74018; 74018-26; 90471; 90715; 99283; 99283-25

== ENCOUNTER 2023-08-10 18:16 | Emergency (ER) | payer MEDICARE, OTHER ==
[2023-08-10 19:17] LABS: BASOPHILS ABSOLUTE AUTO 0.1 K/mm3 (0.0-0.2); BASOPHILS PERCENT AUTO 0.4 % (0.0-1.0); EOSINOPHILS ABSOLUTE AUTO 0.1 K/mm3 (0.0-0.4); EOSINOPHILS PERCENT AUTO 0.9 % (0.0-6.0); HEMATOCRIT 38.7 % (42.0-52.0); HEMOGLOBIN 13.1 gm/dl (14.0-18.0); IMMATURE GRAN ABSOLUTE AUTO 0.05 K/mm3 (0.00-0.05); IMMATURE GRAN PERCENT AUTO 0.4 % (0.0-0.4); LYMPHOCYTES ABSOLUTE AUTO 0.5 K/mm3 (1.0-4.8); LYMPHOCYTES PERCENT AUTO 4.5 % (24.0-44.0); MEAN CORPUSCULAR HEMOGLOBIN 30.5 pg (28.0-32.0); MEAN CORPUSCULAR HGB CONC 33.9 g/dl (32.0-36.0); MEAN CORPUSCULAR VOLUME 90.2 fl (83.0-99.0); MEAN PLATELET VOLUME 9.7 fl (9.4-12.4); MONOCYTES ABSOLUTE AUTO 0.7 K/mm3 (0.0-0.8); MONOCYTES PERCENT AUTO 5.7 % (0.0-8.0); NEUTROPHILS ABSOLUTE AUTO 10.3 K/mm3 (1.8-7.7); NEUTROPHILS PERCENT AUTO 88.1 % (41.0-71.0); PLATELET COUNT,PLT 130 K/mm3 (150-400); RED BLOOD CELL COUNT 4.29 M/mm3 (4.52-5.90); WHITE BLOOD CELL COUNT,WBC 11.68 K/mm3 (3.9-11.3)
[2023-08-10] MEDS: Acetaminophen 325 MG Tab PO ONE (19:32)
[2023-08-10 19:34] LABS: APPEARANCE,URINE CLEAR (Clear); BILIRUBIN,URINE NEGATIVE (Negative); COLOR,URINE YELLOW (Yellow); GLUCOSE,URINE NEGATIVE (Negative); KETONES,URINE NEGATIVE (Negative); LEUKOCYTE ESTERASE,URINE NEGATIVE (Negative); NITRITE,URINE NEGATIVE (Negative); OCCULT BLOOD,URINE NEGATIVE (Negative); PROTEIN,URINE NEGATIVE (Negative); UROBILINOGEN,URINE 0.2 (0.2-1.0)
[2023-08-10 19:39] LABS: A/G RATIO 0.8 (1-2); ALANINE AMINOTRANSFERASE,ALT 25 U/L (16-63); ALBUMIN 3.4 g/dl (3.4-5.0); ALKALINE PHOSPHATASE 92 U/L (46-116); ANION GAP 16.9 (5-15); ASPARTATE AMNIOTRANSFERASE,AST 20 U/L (15-37); BILIRUBIN TOTAL 0.5 mg/dL (0.2-1.0); BLOOD UREA NITROGEN,BUN 16 mg/dL (7-18); C-REACTIVE PROTEIN 1.6 mg/dL (<1.0); CALCIUM 8.8 mg/dL (8.5-10.1); CARBON DIOXIDE,CO2 22 mEq/L (21-32); CHLORIDE,CL 102 mEq/L (98-107); ESTIMATED GFR 74 mL/min (>60); GLUCOSE RANDOM 129 mg/dL (70-99); POTASSIUM,K 3.9 mEq/L (3.5-5.1); PROTEIN TOTAL,TP 7.8 g/dl (6.4-8.2); SODIUM,NA 137 mEq/L (136-145)
[2023-08-10] MEDS ORDERED: Sodium Chloride 0.9% 1,000 ML IV SCH (20:00)
[2023-08-10 20:09] LABS: CORONAVIRUS COVID-19 NAA NEGATIVE (NEGATIVE); INFLUENZA A NAA NEGATIVE (NEGATIVE); RESPIRATORY SYNCYTIAL VIR NAA NEGATIVE (NEGATIVE)
[2023-08-10 22:06] VITALS: BP 128/95; PULSE 80
== END 2023-08-10 22:07 | disposition home or self-care (01) ==
LOC: JD.ED 18:16
DX: B34.9 Viral infection, unspecified (principal); I10 Essential (primary) hypertension; E78.00 Pure hypercholesterolemia, unspecified; K21.9 Gastro-esophageal reflux disease without esophagitis; J44.9 Chronic obstructive pulmonary disease, unspecified; E11.9 Type 2 diabetes mellitus without complications; Z95.5 Presence of coronary angioplasty implant and graft; Z91.048 Other nonmedicinal substance allergy status; Z88.8 Allergy status to other drugs, medicaments and biological substances; Z79.84 Long term (current) use of oral hypoglycemic drugs; Z79.01 Long term (current) use of anticoagulants; Z79.899 Other long term (current) drug therapy
CPT/HCPCS: 0241U; 36415; 70450; 71045; 80053; 81003; 83605; 85025; 86140; 99284; A9270

== ENCOUNTER 2023-09-15 20:13 | Inpatient (IN) | payer MEDICARE, OTHER ==
[2023-09-15] MEDS: Ondansetron 4 MG/2 ML SDV IVPUSH ONE (21:17)
[2023-09-15] MEDS: Sodium Chloride 0.9% 1,000 ML IV STA ×2 (21:17→22:59)
[2023-09-15] MEDS: Sodium Chloride 0.9% 10 ML Syringe FLUSH PRN (21:17)
[2023-09-15] MEDS: Acetaminophen 325 MG Tab PO ONE (21:17)
[2023-09-15 21:29] LABS: HEMATOCRIT 40.5 % (42.0-52.0); HEMOGLOBIN 13.5 gm/dl (14.0-18.0); MEAN CORPUSCULAR HEMOGLOBIN 30.3 pg (28.0-32.0); MEAN CORPUSCULAR HGB CONC 33.3 g/dl (32.0-36.0); MEAN CORPUSCULAR VOLUME 90.8 fl (83.0-99.0); MEAN PLATELET VOLUME 9.6 fl (9.4-12.4); PLATELET COUNT,PLT 107 K/mm3 (150-400); RED BLOOD CELL COUNT 4.46 M/mm3 (4.52-5.90); WHITE BLOOD CELL COUNT,WBC 10.11 K/mm3 (3.9-11.3)
[2023-09-15 21:44] LABS: APPEARANCE,URINE CLEAR (Clear); BILIRUBIN,URINE NEGATIVE (Negative); COLOR,URINE YELLOW (Yellow); GLUCOSE,URINE NEGATIVE (Negative); KETONES,URINE NEGATIVE (Negative); LEUKOCYTE ESTERASE,URINE NEGATIVE (Negative); NITRITE,URINE NEGATIVE (Negative); OCCULT BLOOD,URINE NEGATIVE (Negative); PH,URINE 5.5 (5.0-8.0); PROTEIN,URINE 2+ (Negative); UROBILINOGEN,URINE 0.2 (0.2-1.0)
[2023-09-15 21:45] LABS: INR 1.17; PROTHROMBIN TIME 12.4 SECONDS (9.7-12.0)
[2023-09-15 21:56] LABS: A/G RATIO 0.8 (1-2); ALBUMIN 3.6 g/dl (3.4-5.0); ANION GAP 17.9 (5-15); C-REACTIVE PROTEIN 1.57 mg/dL (<0.30); EST CRCL DRUG DOSING (CG) 49.62 mL/min; POTASSIUM,K 3.9 mEq/L (3.5-5.1); PROTEIN TOTAL,TP 8.2 g/dl (6.4-8.2)
[2023-09-15 21:58] LABS: LACTIC ACID 1.6 mmol/L (0.4-2.0)
[2023-09-15 22:07] LABS: BACTERIA,URINE FEW /hpf (FEW); MUCUS,URINE FEW /hpf (FEW); RBC,URINE 0-5 /hpf (0-5); SQUAMOUS EPITHELIAL CELLS,UR 0-5 /hpf (0-5); WBC,URINE 0-5 /hpf (0-5)
[2023-09-15 22:20] LABS: BAND PERCENT MAN 1 % (0-10); BASOPHILS PERCENT MAN 2 (0.2-1.2); EOSINOPHILS PERCENT MAN 0 % (0.8-7.0); LYMPHOCYTES % ATYPICAL MANUAL 0 %; LYMPHOCYTES PERCENT MAN 9 % (20-40); MONOCYTES PERCENT MAN 6 % (2-10)
[2023-09-15 22:21] LABS: PLATELET COUNT ESTIMATE DECREASED
[2023-09-15 22:32] LABS: CORONAVIRUS COVID-19 NAA NEGATIVE (NEGATIVE); INFLUENZA A NAA NEGATIVE (NEGATIVE); RESPIRATORY SYNCYTIAL VIR NAA NEGATIVE (NEGATIVE)
[2023-09-15] MEDS ORDERED: Acetaminophen 325 MG Tab PO PRN (22:36)
[2023-09-15] MEDS ORDERED: Albuterol/Ipratropium 3.0-0.5 MG/3 ML Neb Soln NEB PRN (22:36)
[2023-09-15] MEDS ORDERED: Ondansetron 4 MG/2 ML SDV IVPUSH PRN (22:37)
[2023-09-15] MEDS: Azithromycin 500 MG in Sodium Chloride 0.9% 250 ML IV ONE (22:59)
[2023-09-15] MEDS: methylPREDNISolone Sodium Succinate 125 MG/2 ML SDV IVPUSH ONE (22:59)
[2023-09-15] MEDS: Non-Formulary Medication 1 Each (Tiotropium 18 MCG Cap) INH SCH (23:46)
[2023-09-16] MEDS: cefTRIAXone 2 GM in Sodium Chloride 0.9% 100 ML IV ONE (00:10)
[2023-09-16] MEDS ORDERED: Acetaminophen 325 MG Tab PO PRN (01:00)
[2023-09-16] MEDS ORDERED: Ondansetron 4 MG/2 ML SDV IVPUSH PRN (02:30)
[2023-09-16] MEDS ORDERED: Albuterol 0.083% 2.5 MG/3 ML Neb Soln NEB PRN (07:37)
[2023-09-16] MEDS: Pravastatin 20 MG Tab PO SCH (08:46)
[2023-09-16] MEDS: Metoprolol Succinate 50 MG Tab.ER PO SCH (08:46)
[2023-09-16] MEDS: Acetaminophen 325 MG Tab PO SCH (08:47)
[2023-09-16] MEDS: Losartan 50 MG Tab PO SCH (08:47)
[2023-09-16] MEDS: Apixaban 5 MG Tab PO SCH (08:48)
[2023-09-16] MEDS: Ezetimibe 10 MG Tab PO SCH (08:48)
[2023-09-16] MEDS: Pantoprazole 40 MG Tab.CR PO SCH (08:48)
[2023-09-16] MEDS: Finasteride 5 MG Tab PO SCH (08:48)
[2023-09-16] MEDS: Tamsulosin 0.4 MG Cap.ER PO SCH (08:48)
[2023-09-16] MEDS ORDERED: Docusate Sodium 100 MG Cap PO PRN (09:00)
[2023-09-16] MEDS: Nystatin Crm 30 GM Tube TOP SCH (09:20)
[2023-09-16] MEDS: Albuterol/Ipratropium 3.0-0.5 MG/3 ML Neb Soln NEB SCH (09:31)
[2023-09-16] MEDS: Insulin Lispro 100 Unit/ML 3 ML KwikPen SUBCUT SCH (11:27)
[2023-09-16] MEDS ORDERED: Tiotropium Bromide 4 GM Inhalation Spray (2.5mcg/1 dose; 10 doses) INH SCH (21:00)
[2023-09-16] MEDS: Melatonin 3 MG Tab PO SCH (21:11)
[2023-09-16] MEDS: Azithromycin 500 MG in Sodium Chloride 0.9% 250 ML IV SCH (21:15)
[2023-09-16] MEDS: Tiotropium Bromide 4 GM Inhalation Spray (2.5mcg/1 dose; 10 doses) INH SCH (21:43)
[2023-09-16] MEDS: cefTRIAXone 2 GM in Sodium Chloride 0.9% 100 ML IV SCH (22:15)
[2023-09-17 05:48] LABS: BASOPHILS PERCENT AUTO 0.3 % (0.0-1.0); EOSINOPHILS PERCENT AUTO 0.1 % (0.0-6.0); HEMATOCRIT 33.8 % (42.0-52.0); IMMATURE GRAN ABSOLUTE AUTO 0.09 K/mm3 (0.00-0.05); IMMATURE GRAN PERCENT AUTO 0.8 % (0.0-0.4); LYMPHOCYTES ABSOLUTE AUTO 1.5 K/mm3 (1.0-4.8); LYMPHOCYTES PERCENT AUTO 14.4 % (24.0-44.0); MEAN CORPUSCULAR HEMOGLOBIN 30.4 pg (28.0-32.0); MEAN CORPUSCULAR HGB CONC 32.8 g/dl (32.0-36.0); MEAN CORPUSCULAR VOLUME 92.6 fl (83.0-99.0); MEAN PLATELET VOLUME 10.3 fl (9.4-12.4); MONOCYTES PERCENT AUTO 9.7 % (0.0-8.0); NEUTROPHILS PERCENT AUTO 74.7 % (41.0-71.0); PLATELET COUNT,PLT 121 K/mm3 (150-400); RED BLOOD CELL COUNT 3.65 M/mm3 (4.52-5.90); WHITE BLOOD CELL COUNT,WBC 10.67 K/mm3 (3.9-11.3)
[2023-09-17 05:51] LABS: ANION GAP 12.1 (5-15); CALCIUM 8.5 mg/dL (8.5-10.1); EST CRCL DRUG DOSING (CG) 53.2 mL/min; HEMOGLOBIN 11.1 gm/dl (14.0-18.0); MAGNESIUM 2.1 mg/dL (1.8-2.4); POTASSIUM,K 4.1 mEq/L (3.5-5.1)
[2023-09-17 08:25] VITALS: BP 97/72
[2023-09-17 08:36] VITALS: PULSE 62
== END 2023-09-17 11:55 | disposition home or self-care (01) | DRG 193 ==
LOC: JD.ED 20:13 → JD.MS 22:34
PROVIDERS: ADMIT Hospitalist; ATTEND Hospitalist
DX: J18.9 Pneumonia, unspecified organism (principal); J96.01 Acute respiratory failure with hypoxia; R50.9 Fever, unspecified; J44.0 Chronic obstructive pulmonary disease with (acute) lower respiratory infection; J44.1 Chronic obstructive pulmonary disease with (acute) exacerbation; F03.90 Unspecified dementia, unspecified severity, without behavioral disturbance, psychotic disturbance, mood disturbance, and anxiety; Z66 Do not resuscitate; G47.30 Sleep apnea, unspecified; I10 Essential (primary) hypertension; Z91.048 Other nonmedicinal substance allergy status; I25.10 Atherosclerotic heart disease of native coronary artery without angina pectoris; E78.00 Pure hypercholesterolemia, unspecified; I48.91 Unspecified atrial fibrillation; K21.9 Gastro-esophageal reflux disease without esophagitis; N40.0 Benign prostatic hyperplasia without lower urinary tract symptoms; M19.90 Unspecified osteoarthritis, unspecified site; E11.9 Type 2 diabetes mellitus without complications; R53.1 Weakness; D64.9 Anemia, unspecified; Z88.8 Allergy status to other drugs, medicaments and biological substances; Z95.2 Presence of prosthetic heart valve; Z79.01 Long term (current) use of anticoagulants; Z86.16 Personal history of COVID-19; Z86.14 Personal history of Methicillin resistant Staphylococcus aureus infection; Z90.49 Acquired absence of other specified parts of digestive tract; Z79.899 Other long term (current) drug therapy; Z96.659 Presence of unspecified artificial knee joint; Z87.891 Personal history of nicotine dependence; Z96.611 Presence of right artificial shoulder joint
CPT/HCPCS: 0241U; 36415; 70450; 71045; 80048; 80053; 81001; 82947; 83605; 83735; 85007; 85025; 85027; 85610; 86140; 87040; 87641; 94640; 94668; 94761; 97116; 97161; 97530; 96361; 96374; 99285; 99285-25; A9270-GY; J0456; J0696; J1815; J2405; J2930; J3490; J7030; J7050; J7620-GY

== ENCOUNTER 2024-10-24 06:10 | Inpatient (IN) | payer MEDICARE, OTHER ==
[2024-10-24 06:48] LABS: BASOPHILS PERCENT AUTO 0.8 % (0.0-1.0); EOSINOPHILS PERCENT AUTO 0.5 % (0.0-6.0); HEMATOCRIT 37.3 % (42.0-52.0); HEMOGLOBIN 12.3 gm/dl (14.0-18.0); IMMATURE GRAN ABSOLUTE AUTO 0.01 K/mm3 (0.00-0.05); IMMATURE GRAN PERCENT AUTO 0.3 % (0.0-0.4); LYMPHOCYTES ABSOLUTE AUTO 0.5 K/mm3 (1.0-4.8); LYMPHOCYTES PERCENT AUTO 14.5 % (24.0-44.0); MEAN CORPUSCULAR HEMOGLOBIN 30.1 pg (28.0-32.0); MEAN CORPUSCULAR VOLUME 91.4 fl (83.0-99.0); MEAN PLATELET VOLUME 10.3 fl (9.4-12.4); MONOCYTES ABSOLUTE AUTO 0.5 K/mm3 (0.0-0.8); MONOCYTES PERCENT AUTO 12.9 % (0.0-8.0); NEUTROPHILS ABSOLUTE AUTO 2.7 K/mm3 (1.8-7.7); PLATELET COUNT,PLT 104 K/mm3 (150-400); RED BLOOD CELL COUNT 4.08 M/mm3 (4.52-5.90); WHITE BLOOD CELL COUNT,WBC 3.73 K/mm3 (3.9-11.3)
[2024-10-24 06:48] LABS: APPEARANCE,URINE CLEAR (Clear); BILIRUBIN,URINE NEGATIVE (Negative); COLOR,URINE YELLOW (Yellow); GLUCOSE,URINE NEGATIVE (Negative); KETONES,URINE NEGATIVE (Negative); LEUKOCYTE ESTERASE,URINE NEGATIVE (Negative); NITRITE,URINE NEGATIVE (Negative); OCCULT BLOOD,URINE TRACE-INTACT (Negative); PROTEIN,URINE 1+ (Negative); UROBILINOGEN,URINE 0.2 (0.2-1.0)
[2024-10-24 06:57] LABS: BACTERIA,URINE FEW /hpf (FEW); MUCUS,URINE MODERATE /hpf (FEW); SQUAMOUS EPITHELIAL CELLS,UR 0-5 /hpf (0-5); WBC,URINE 0-5 /hpf (0-5)
[2024-10-24 06:58] LABS: LACTIC ACID 1.8 mmol/L (0.4-2.0)
[2024-10-24 07:04] LABS: A/G RATIO 0.9 (1-2); ALBUMIN 3.4 g/dl (3.4-5.0); BILIRUBIN TOTAL 0.7 mg/dL (0.2-1.0); BUN/CREATININE RATIO 18.2 (14-18); CALCIUM 8.6 mg/dL (8.5-10.1); CREATININE 1.1 mg/dL (0.7-1.3); EST CRCL DRUG DOSING (CG) 45.9 mL/min; MAGNESIUM 1.7 mg/dL (1.8-2.4); PROTEIN TOTAL,TP 7.2 g/dl (6.4-8.2); TSH 4.584 uIU/mL (0.358-3.74)
[2024-10-24 07:17] LABS: ANION GAP 18.3 (5-15); CORONAVIRUS COVID-19 NAA NEGATIVE (NEGATIVE); INFLUENZA A NAA NEGATIVE (NEGATIVE); POTASSIUM,K 4.3 mEq/L (3.5-5.1); RESPIRATORY SYNCYTIAL VIR NAA NEGATIVE (NEGATIVE)
[2024-10-24 07:27] LABS: T4 FREE 0.8 ng/dL (0.76-1.46)
[2024-10-24] MEDS: Iopamidol 612 MG/ML 100 ML Bottle IVPUSH ONE (07:54)
[2024-10-24] MEDS: Sodium Chloride 0.9% 10 ML Syringe FLUSH PRN (07:54)
[2024-10-24] MEDS: Piperacillin/Tazobactam 4.5 GM in Sodium Chloride 0.9% 100 ML IV ONE (08:37)
[2024-10-24] MEDS: Sodium Chloride 0.9% 1,000 ML IV ONE (08:37)
[2024-10-24] MEDS: Acetaminophen 325 MG Tab PO ONE (10:48)
[2024-10-24] MEDS ORDERED: Docusate Sodium 100 MG Cap PO PRN (10:54)
[2024-10-24] MEDS ORDERED: Polyethylene Glycol 3350 Powder 17 GM Packet PO PRN (10:54)
[2024-10-24] MEDS ORDERED: oxyCODONE 5 MG Tab PO PRN (10:54)
[2024-10-24] MEDS ORDERED: Acetaminophen 325 MG Tab PO PRN (10:54)
[2024-10-24] MEDS ORDERED: Albuterol 0.083% 2.5 MG/3 ML Neb Soln NEB PRN (10:54)
[2024-10-24] MEDS ORDERED: Ondansetron 4 MG/2 ML SDV IV PRN (10:54)
[2024-10-24] MEDS: Ezetimibe 10 MG Tab PO SCH (11:59)
[2024-10-24] MEDS: Apixaban 5 MG Tab PO SCH (11:59)
[2024-10-24] MEDS: Finasteride 5 MG Tab PO SCH (11:59)
[2024-10-24] MEDS: Albuterol/Ipratropium 3.0-0.5 MG/3 ML Neb Soln NEB SCH (15:37)
[2024-10-24] MEDS: Sennosides/Docusate Sodium 50-8.6 MG Tab PO SCH (16:19)
[2024-10-24] MEDS: Magnesium Sulfate 2 GM/50 mL 2 GM in Premix Bag 1 BAG IV ONE (16:20)
[2024-10-24] MEDS: Lactated Ringers 1,000 ML IV SCH (16:20)
[2024-10-24] MEDS: Piperacillin/Tazobactam 4.5 GM in Sodium Chloride 0.9% 100 ML IV SCH (16:21)
[2024-10-24] MEDS: Insulin Lispro 100 Unit/ML 3 ML KwikPen SUBCUT SCH (16:41)
[2024-10-24] MEDS: Tiotropium Bromide 4 GM Inhalation Spray (2.5mcg/1 dose; 10 doses) INH SCH (20:25)
[2024-10-24] MEDS: guaiFENesin/Dextromethorphan 100-10 MG/5 ML Soln 5 ML Cup PO SCH (20:46)
[2024-10-24] MEDS: Tamsulosin 0.4 MG Cap.ER PO SCH (20:49)
[2024-10-24] MEDS: Pravastatin 20 MG Tab PO SCH (20:49)
[2024-10-24] MEDS: Melatonin 3 MG Tab PO SCH (20:49)
[2024-10-25 04:39] LABS: BASOPHILS PERCENT AUTO 0.8 % (0.0-1.0); EOSINOPHILS ABSOLUTE AUTO 0.1 K/mm3 (0.0-0.4); EOSINOPHILS PERCENT AUTO 1.4 % (0.0-6.0); HEMATOCRIT 32.9 % (42.0-52.0); HEMOGLOBIN 10.7 gm/dl (14.0-18.0); IMMATURE GRAN ABSOLUTE AUTO 0.01 K/mm3 (0.00-0.05); IMMATURE GRAN PERCENT AUTO 0.3 % (0.0-0.4); LYMPHOCYTES ABSOLUTE AUTO 1.1 K/mm3 (1.0-4.8); LYMPHOCYTES PERCENT AUTO 30.8 % (24.0-44.0); MEAN CORPUSCULAR HEMOGLOBIN 29.7 pg (28.0-32.0); MEAN CORPUSCULAR HGB CONC 32.5 g/dl (32.0-36.0); MEAN CORPUSCULAR VOLUME 91.4 fl (83.0-99.0); MEAN PLATELET VOLUME 9.5 fl (9.4-12.4); MONOCYTES ABSOLUTE AUTO 0.6 K/mm3 (0.0-0.8); MONOCYTES PERCENT AUTO 16.9 % (0.0-8.0); NEUTROPHILS ABSOLUTE AUTO 1.8 K/mm3 (1.8-7.7); NEUTROPHILS PERCENT AUTO 49.8 % (41.0-71.0); PLATELET COUNT,PLT 105 K/mm3 (150-400); WHITE BLOOD CELL COUNT,WBC 3.54 K/mm3 (3.9-11.3)
[2024-10-25 05:20] LABS: A/G RATIO 0.7 (1-2); ALBUMIN 2.7 g/dl (3.4-5.0); ANION GAP 12.7 (5-15); BILIRUBIN TOTAL 0.4 mg/dL (0.2-1.0); BUN/CREATININE RATIO 13.6 (14-18); C-REACTIVE PROTEIN 6.4 mg/dL (<0.30); CREATININE 1.1 mg/dL (0.7-1.3); EST CRCL DRUG DOSING (CG) 45.9 mL/min; MAGNESIUM 2.2 mg/dL (1.8-2.4); POTASSIUM,K 3.7 mEq/L (3.5-5.1); PROTEIN TOTAL,TP 6.4 g/dl (6.4-8.2)
[2024-10-25] MEDS: Pantoprazole 40 MG Tab.CR PO SCH (08:10)
[2024-10-25] MEDS: Azithromycin 250 MG Tab PO SCH (08:11)
[2024-10-25] MEDS ORDERED: Albuterol/Ipratropium 3.0-0.5 MG/3 ML Neb Soln NEB PRN (12:57)
[2024-10-26 04:57] LABS: BASOPHILS PERCENT AUTO 0.7 % (0.0-1.0); EOSINOPHILS ABSOLUTE AUTO 0.2 K/mm3 (0.0-0.4); EOSINOPHILS PERCENT AUTO 4.2 % (0.0-6.0); HEMATOCRIT 34.5 % (42.0-52.0); HEMOGLOBIN 11.1 gm/dl (14.0-18.0); IMMATURE GRAN ABSOLUTE AUTO 0.01 K/mm3 (0.00-0.05); IMMATURE GRAN PERCENT AUTO 0.2 % (0.0-0.4); LYMPHOCYTES ABSOLUTE AUTO 1.7 K/mm3 (1.0-4.8); LYMPHOCYTES PERCENT AUTO 40.8 % (24.0-44.0); MEAN CORPUSCULAR HEMOGLOBIN 29.4 pg (28.0-32.0); MEAN CORPUSCULAR HGB CONC 32.2 g/dl (32.0-36.0); MEAN CORPUSCULAR VOLUME 91.5 fl (83.0-99.0); MEAN PLATELET VOLUME 10.3 fl (9.4-12.4); MONOCYTES ABSOLUTE AUTO 0.7 K/mm3 (0.0-0.8); MONOCYTES PERCENT AUTO 15.7 % (0.0-8.0); NEUTROPHILS ABSOLUTE AUTO 1.6 K/mm3 (1.8-7.7); NEUTROPHILS PERCENT AUTO 38.4 % (41.0-71.0); PLATELET COUNT,PLT 105 K/mm3 (150-400); RED BLOOD CELL COUNT 3.77 M/mm3 (4.52-5.90); WHITE BLOOD CELL COUNT,WBC 4.26 K/mm3 (3.9-11.3)
[2024-10-26 05:44] LABS: A/G RATIO 0.7 (1-2); ALBUMIN 2.8 g/dl (3.4-5.0); ANION GAP 13.1 (5-15); BILIRUBIN TOTAL 0.5 mg/dL (0.2-1.0); BUN/CREATININE RATIO 12.2 (14-18); C-REACTIVE PROTEIN 3.54 mg/dL (<0.30); CALCIUM 8.3 mg/dL (8.5-10.1); CREATININE 0.9 mg/dL (0.7-1.3); EST CRCL DRUG DOSING (CG) 56.1 mL/min; MAGNESIUM 1.9 mg/dL (1.8-2.4); POTASSIUM,K 4.1 mEq/L (3.5-5.1); PROTEIN TOTAL,TP 6.6 g/dl (6.4-8.2)
[2024-10-26 13:46] VITALS: BP 129/80; PULSE 87
== END 2024-10-26 13:44 | disposition home or self-care (01) | DRG 871 ==
LOC: JD.ED 06:10 → JD.MS 08:30
PROVIDERS: ADMIT Student in an Organized Health Care Education/Training Program; ATTEND Student in an Organized Health Care Education/Training Program
DX: A41.9 Sepsis, unspecified organism (principal); J18.9 Pneumonia, unspecified organism; J44.0 Chronic obstructive pulmonary disease with (acute) lower respiratory infection; R05.9 Cough, unspecified; D72.819 Decreased white blood cell count, unspecified; R26.89 Other abnormalities of gait and mobility; F01.518 Vascular dementia, unspecified severity, with other behavioral disturbance; R65.20 Severe sepsis without septic shock; Z66 Do not resuscitate; J44.9 Chronic obstructive pulmonary disease, unspecified; E11.9 Type 2 diabetes mellitus without complications; Z95.5 Presence of coronary angioplasty implant and graft; K76.0 Fatty (change of) liver, not elsewhere classified; Z91.048 Other nonmedicinal substance allergy status; K80.20 Calculus of gallbladder without cholecystitis without obstruction; I48.91 Unspecified atrial fibrillation; I25.10 Atherosclerotic heart disease of native coronary artery without angina pectoris; G47.30 Sleep apnea, unspecified; I10 Essential (primary) hypertension; N40.1 Benign prostatic hyperplasia with lower urinary tract symptoms; R33.8 Other retention of urine; G89.29 Other chronic pain; R26.2 Difficulty in walking, not elsewhere classified; K52.9 Noninfective gastroenteritis and colitis, unspecified; R79.89 Other specified abnormal findings of blood chemistry; R19.5 Other fecal abnormalities; K59.01 Slow transit constipation; E11.51 Type 2 diabetes mellitus with diabetic peripheral angiopathy without gangrene; M54.9 Dorsalgia, unspecified; K21.9 Gastro-esophageal reflux disease without esophagitis; D64.9 Anemia, unspecified; E03.8 Other specified hypothyroidism; G25.81 Restless legs syndrome; E78.00 Pure hypercholesterolemia, unspecified; J47.9 Bronchiectasis, uncomplicated; M19.90 Unspecified osteoarthritis, unspecified site; G47.00 Insomnia, unspecified; Z96.659 Presence of unspecified artificial knee joint; Z96.619 Presence of unspecified artificial shoulder joint; Z85.51 Personal history of malignant neoplasm of bladder; Z79.01 Long term (current) use of anticoagulants; Z95.1 Presence of aortocoronary bypass graft; Z86.73 Personal history of transient ischemic attack (TIA), and cerebral infarction without residual deficits; Z79.4 Long term (current) use of insulin; Z87.898 Personal history of other specified conditions; Z95.2 Presence of prosthetic heart valve; Z79.52 Long term (current) use of systemic steroids; Z79.899 Other long term (current) drug therapy; Z79.1 Long term (current) use of non-steroidal anti-inflammatories (NSAID); Z79.2 Long term (current) use of antibiotics; Z88.8 Allergy status to other drugs, medicaments and biological substances; Z87.891 Personal history of nicotine dependence; Z86.16 Personal history of COVID-19; Z90.89 Acquired absence of other organs; Z98.42 Cataract extraction status, left eye; Z98.41 Cataract extraction status, right eye; Z90.6 Acquired absence of other parts of urinary tract; Z98.890 Other specified postprocedural states
CPT/HCPCS: 0241U; 36415; 71045; 71045-26; 74177; 74177-26; 80053; 81001; 82550; 82947; 83605; 83690; 83735; 83880; 84100; 84439; 84443; 84484; 85025; 86140; 87040; 93005; 93010; 94640; 94667; 94668; 94760; 94761; 97110-GP; 97161-GP; 97530-GP; 99285; A9270-GY; J1815; J2543; J3475; J7030; J7120; Q9967